=== PATIENT | male | born 1960 | race Caucasian/White ===

== ENCOUNTER 2023-03-11 07:08 | Outpatient (OUT) | payer BC, SELFPAY ==
[2023-03-11 07:31] LABS: Bilirubin Urine NEGATIVE (NEGATIVE); Blood Urine NEGATIVE (NEGATIVE); Clarity Urine CLEAR (CLEAR); Color Urine LT. YELLOW (YELLOW); Glucose Urine UA NEGATIVE (NEGATIVE); Ketones Urine NEGATIVE (NEGATIVE); Leukocyte Esterase Urine NEGATIVE (NEGATIVE); Nitrite Urine NEGATIVE (NEGATIVE); Protein Urine NEGATIVE (NEG/TRACE); Specific Gravity Urine 1.025 (1.005-1.025); Urobilinogen Urine 0.2 EU/dL (0.2-1.0); pH Urine 5.5 (5.0-9.0)
[2023-03-11 07:32] LABS: Basophils Absolute Auto 0.1 10^3/uL (0.0-0.1); Basophils Percent Auto 1.1 % (0.2-2.0); Eosinophils Absolute Auto 0.4 10^3/uL (0.0-0.7); Eosinophils Percent Auto 8.4 % (0.9-7.0); Hematocrit 44.3 % (42.0-54.0); Immature Granulocytes Abs Auto 0.01 10^3/uL (0.00-0.03); Immature Granulocytes Pct Auto 0.2 % (0.0-0.5); Lymphocytes Absolute Auto 1.1 10^3/uL (1.2-3.8); Lymphocytes Percent Auto 23.9 % (20.5-60.0); Mean Corpuscular HGB Conc 31.6 g/dL (29.9-35.2); Mean Corpuscular Hemoglobin 30.9 pg (25.9-34.0); Mean Corpuscular Volume 97.8 fL (80.0-94.0); Mean Platelet Volume 9.9 fL (9.5-13.5); Monocytes Absolute Auto 0.6 10^3/uL (0.3-0.8); Monocytes Percent Auto 12.2 % (1.7-12.0); Neutrophils Absolute Auto 2.5 10^3/uL (1.4-6.5); Neutrophils Percent Auto 54.2 % (43.0-75.0); Platelet Count 213 10^3/uL (150-450); Red Blood Count 4.53 10^6/uL (4.70-6.10); Red Cell Distribution Width 12.4 % (11.0-15.0); White Blood Count 4.5 10^3/uL (4.0-11.0)
[2023-03-11 07:37] LABS: Urine Microscopic Indicated YES
[2023-03-11 07:48] LABS: Bacteria Urine NONE SEEN #/HPF (NONE SEEN); Crystals Seen? None Seen #/HPF (None Seen); Mucus Urine NONE SEEN (NONE SEEN); RBC Urine NONE SEEN #/HPF (0-2); Squamous Epithelial Cell Urine NONE SEEN #/LPF (NONE/RARE); WBC Urine NONE SEEN #/HPF (NONE SEEN)
[2023-03-11 07:49] LABS: Cast Seen? NONE SEEN #/LPF (NONE SEEN); Urine Culture Indicated NO
[2023-03-11 08:26] LABS: Alanine Aminotransferase 16 U/L (16-63); Albumin Globulin Ratio 0.8; Albumin Level 3.2 g/dL (3.4-5.0); Alkaline Phosphatase 95 U/L (46-116); Anion Gap 11.8; Aspartate Amino Transferase 15 U/L (15-37); BUN Creatinine Ratio 15.4; Bilirubin Total 0.6 mg/dL (0.2-1.0); Calcium 8.4 mg/dL (8.5-10.1); Carbon Dioxide 24.7 mmol/L (21.0-32.0); Chloride 105 mmol/L (98-107); Chol HDL Ratio 2.5; Cholesterol 183 mg/dL (<=200); Estimated GFR (African America >60 (>=60); Estimated GFR (Non-African Ame >60 (>=60); Globulin 3.8 g/dL; Glucose 95 mg/dL (74-106); HDL Cholesterol 74 mg/dL (40-60); Potassium 4.5 mmol/L (3.5-5.1); Sodium 137 mmol/L (136-145); Triglycerides 51 mg/dL (<=150); VLDL CHOLESTEROL 10.2 mg/dL
== END 2023-03-11 07:09 | disposition home or self-care (01) ==
LOC: LAB 07:11
PROVIDERS: PCP Nurse Practitioner; Visit Provider Nurse Practitioner
DX: Z00.00 Encounter for general adult medical examination without abnormal findings (principal); Z78.9 Other specified health status
CPT/HCPCS: 36415; 80053; 80061; 81001; 85025

== ENCOUNTER 2023-07-24 07:11 | Outpatient (OUT) | payer OTHER, SELFPAY ==
--- OUTSIDE RECORDS SUMMARY | 2023-07-24 07:16 | XMS_ITS | CCD ---
Author Organization [facility] Care Team Providers Care Clinical Trial Specialist Name Role Phone Mariaelena Bailey Primary Care Provider [phone] MARIAELENA BAILEY Primary Care Physician AICHHOLZ, SENIOR SYSTEMS ANALYST MARIAELENA Admitting Unavailable AICHHOLZ, SENIOR SYSTEMS ANALYST MARIAELENA Primary Care Unavailable AICHHOLZ, SENIOR SYSTEMS ANALYST MARIAELENA Consulting Unavailable AICHHOLZ, SENIOR SYSTEMS ANALYST MARIAELENA Attending Unavailable AICHHOLZ, SENIOR SYSTEMS ANALYST MARIAELENA Admitting Unavailable AICHHOLZ, SENIOR SYSTEMS ANALYST MARIAELENA Primary Care Unavailable AICHHOLZ, SENIOR SYSTEMS ANALYST MARIAELENA Consulting Unavailable AICHHOLZ, SENIOR SYSTEMS ANALYST MARIAELENA Attending Unavailable AICHHOLZ, SENIOR SYSTEMS ANALYST MARIAELENA Admitting Unavailable AICHHOLZ, SENIOR SYSTEMS ANALYST MARIAELENA Primary Care Unavailable AICHHOLZ, SENIOR SYSTEMS ANALYST MARIAELENA Consulting Unavailable AICHHOLZ, SENIOR SYSTEMS ANALYST MARIAELENA Attending Unavailable AICHHOLZ, SENIOR SYSTEMS ANALYST MARIAELENA Primary Care Unavailable DR TJ REYES Admitting Unavailable ENGDR TJ DIMAS Consulting Unavailable DR TJ REYES Attending Unavailable Aichholz Mariaelena HERNANDEZ Primary Care Provider Willy REYES Referring Unavailable Willy REYES Attending Unavailable MARIAELNEA BAILEY Primary Care Unavailable AICVICENTA, MARIAELENA SALAZAR Primary Care Unavailable Willy REYES Referring Unavailable Willy REYES Attending Unavailable MARIAELENA BAILEY Primary Care Unavailable AICHHOLOlive, MARIAELENA MARIE Primary Care Unavailable Willy REYES Referring Unavailable Reynolds, Meg Unavailable Reynolds, Meg Attending Unavailable Reynolds, Meg Admitting Unavailable David CARNEY Attending Unavailable David CARNEY Attending Unavailable Medications Current Medications Medication Drug Class(es) Dates Sig (Normalized) Sig (Original) Diclofenac (1 source) Nonsteroidal Anti-inflammatory Drug Start: 04-22-2023 Voltaren 1 % apply to affected area Externally four times a day as needed for 7 days Apr, Active Fish Oils (2 sources) Start: 02-21-2021 take 1000 mg by mouth once daily Fish Oil 1,000 mg, Oral, Daily Start Date: 02/21/21 Status: Ordered lisinopril 10 mg oral tablet (4 sources) Angiotensin Converting Enzyme Inhibitor Start: 04-19-2020 take 1 tablet by mouth once daily lisinopril 10 mg Tab 10 mg = 1 tab(s), Oral, Daily Start Date: 05/04/20 Status: Ordered take 1 tablet by mouth once zahra y Lisinopril 20 MG TAKE 1 TABLET BY MOUTH EVERY DAY Oral for 90 Days Active Comment on above: Take 10 mg by mouth once daily. sildenafil 100 mg oral tablet (2 sources) Phosphodiesterase 5 Inhibitor Start: 07-31-2022 Viagra 100 mg Tab 100 mg = 1 tab(s), Oral, As Directed, 1 hour before sexual activity., # 30 tab(s), Refills(s) 5, Pharmacy: [id number], 188, cm, 11/21/21 8:42:00 EDT, Height/Length Dosing, 95.1, kg, 11/21/21 8:42:00 EDT, Weight Dosing Start Date: 07/31/22 Status: Ordered Start: 02-21-2021 Viagra 100 mg Tab 100 mg = 1 tab(s), Oral, As Directed, 1 hour before sexual activity., # 30 tab(s), Refills(s) 2, Pharmacy: [id number], 188, cm, 02/21/21 8:28:00 EDT, Height/Length Dosing, 95.1, kg, 02/21/21 8:28:00 EDT, Weight Dosing Start Date: 02/21/21 Status: Ordered tamsulosin hydrochloride 0.4 mg oral capsule (4 sources) alpha-Adrenergic Aden Start: 12-03-2022 End: 11-28-2023 take 1 capsule by mouth once daily tamsulosin 0.4 mg Cap 0.4 mg = 1 cap(s), Oral, Daily, X 90 day(s), # 90 cap(s), Refills(s) 3, [facility]: [id number], 188, cm, 12/03/22 11:35:00 EDT, Height/Length Dosing, 94, kg, 12/03/22 11:35:00 EDT, Weight Dosing Start Date: 12/03/22 Stop Date: 11/28/23 Status: Ordered Start: 01-17-2021 take 1 capsule by [facility] once daily tamsulosin 0.4 mg Cap 0.4 mg = 1 cap(s), Oral, Daily, # 30 cap(s), Refills(s) 11, Pharmacy: [id number], 188, cm, 02/21/21 8:28:00 EDT, Height/Length Dosing, 95.1, kg, 02/21/21 8:28:00 EDT, Weight Dosing Start Date: 08/30/21 Status: Ordered Comment on above: Take 1 capsule by [facility] once daily. Completed/Discontinued Medications Medication Drug Class(es) Dates Sig (Normalized) Sig (Original) docosahexaenoic acid/epa (FISH OIL ORAL) (1 source) docosahexaenoic acid/epa (FISH OIL ORAL) Take by mouth. 0 Active Comment on above: Take by mouth. Toradol 30 mg/ml (1 source) Start: 04-22-2023 Toradol 30 mg/ml Apr, 60 mg Problems Active Problems Problem Classification Problem Date Documented Date Episodic/Chronic Cancer of prostate (10 sources) Malignant neoplasm of prostate; Translations: [Malignant tumor of prostate] Onset: 07-17-2021 Chronic Essential hypertension (2 sources) Hypertensive disorder 2020 Chronic Genitourinary symptoms and ill-defined conditions (8 sources) Dysuria; Translations: [Loyd hematuria] 09-20-2020 Episodic Hyperplasia of prostate (6 sources) Benign prostatic hypertrophy with outflow obstruction; Translations: [Benign prostatic hyperplasia with lower urinary tract symptoms] Onset: 11-21-2021 Chronic Other diseases of kidney and ureters (1 source) Urinary tract obstruction; Translations: [Other obstructive and reflux uropathy] Onset: 11-21-2021 Episodic Other male genital disorders (2 sources) Erectile dysfunction following prostate brachytherapy 02-21-2021 Chronic Other male genital disorders (2 sources) Hemospermia 05-10-2020 Episodic Other non-traumatic joint disorders (1 source) Pain in left ankle and joints of left foot Episodic Other screening for suspected conditions (not mental disorders or infectious disease) (6 sources) Raised prostate specific antigen; Translations: [Other specified abnormal findings of blood chemistry] Onset: 08-17-2021 05-10-2020 Episodic Residual codes; unclassified (2 sources) Family history of prostate cancer 06-02-2020 Episodic Sprains and strains (1 source) Sprain of unspecified ligament of left ankle, initial encounter Episodic Unclassified (2 sources) Asymptomatic microscopic hematuria 02-21-2021 Unclassified (2 sources) Finding of sensation of bladder 02-21-2021 Unclassified (1 source) Pain in left ankle and joints of left foot; Translations: [Pain in left ankle and joints of left foot] Onset: 04-22-2023 Past or Other Problems Problem Classification Problem Date Documented Da te Episodic/Chronic Coagulation and hemorrhagic disorders (1 source) Spontaneous ecchymoses; Translations: [SPONTANEOUS ECCHYMOSES] Onset: 08-23-2021 Episodic Results Test Name Value Interpretation Reference Range Facility Reminderson 07-22-2023 Reminders - From: Gabriella Wilks To: [facility] - Recalls Rommel; Sent: 12/03/2022 16:46:30 EDT Show up: 05/05/2023 15:46:00 EST Subject: PSA Reminder Message Please Remember to:_have pt get PSA done in 6 months (by Dr. Reyes if pt keeps his appt in 07/2023) and in 1 year from today's appt on 12/03/22. From: Fide Kidd MA ([facility] - Recalls Rommel) To: [facility] - Recalls Carney; Sent: 06/07/2023 12:37:29 EST Show up: 07/08/2023 12:37:00 EST Subject: RE: PSA Due Date/Time: 07/12/2023 12:37:00 EST [facility] & requested Dr Reyes's last note. Spoke to pt. He is no longer following with Dr Reyes. He will get his PSA done @ [facility] sometime this week. Order has been faxed to [facility]. Sarwat Gilman [facility] XR ankle LT min 3V*on 2022 XR ankle LT min 3V* [facility] [employer] Other XR ankle LT min 3V* [facility] [employer] Other XR ankle LT min 3V* [address] [facility] [employer] Other XR ankle LT min 3V* SheylaLAUREN [address] [employer] Other XR ankle LT min 3V* XRay Report [employer] Other XR ankle LT min 3V* Signed [employer] Other XR ankle LT min 3V* Patient: Loyd Alford MR#: [id number] [place] [employer] Other XR ankle LT min 3V* : 1960 Acct:[id number] [employer] Other XR ankle LT min 3V* Age/Sex: 62 / M ADM Date: 04/22/23 [employer] Other XR ankle LT min 3V* Loc: XDUCLY Room: Type: [facility] [employer] Other XR ankle LT min 3V* Attending Dr: Meg Oakes [employer] Other XR ankle LT min 3V* Copies to: Meg Reynolds NP [employer] Other XR ankle LT min 3V* Ordering Provider: Meg Reynolds NP [employer] Other XR ankle LT min 3V* Date of Service: 04/22/23 [employer] Other XR ankle LT min 3V* XR/XR ankle LT min 3V*: M25.572 [employer] Other XR ankle LT min 3V* 3 views left ankle plain film [employer] Other XR ankle LT min 3V* COMPARISON: None [employer] Other XR ankle LT min 3V* HISTORY: Left ankle pain and swelling for 2 days. [employer] Other XR ankle LT min 3V* ACUTE FINDINGS: None [employer] Other XR ankle LT min 3V* DEGENERATIVE CHANGE: Minor marginal spurring. Tana deformity which may be incidental. Chronic [employer] Other XR ankle LT min 3V* bony densities of the superior portion of the talar head. Adjacent soft tissue prominence. [employer] Other XR ankle LT min 3V* SOFT TISSUE FINDINGS: Diffuse soft tissue prominence [employer] Other XR ankle LT min 3V* JOINT EFFUSION: None [employer] Other XR ankle LT min 3V* POSTOP CHANGES: None [employer] Other XR ankle LT min 3V* BONE MINERALIZATION: Adequate [employer] Other XR ankle LT min 3V* XR/XR ankle LT min 3V* [employer] Other XR ankle LT min 3V* IMPRESSION: Degenerative change. Soft tissue prominence [employer] Other XR ankle LT min 3V* Impression dictated by: Chao Wallace M.D.04/22/2023 9:57 AM [employer] Other XR ankle LT min 3V* Dictation Location: [place] [address] [employer] Other XR ankle LT min 3V* Transcribed By: [facility] 04/22/23 0957 [employer] Other XR ankle LT min 3V* Dictated By: Chao Wallace DO 04/22/23 0954 [employer] Other XR ankle LT min 3V* Signed By: [employer] Other XR ankle LT min 3V* 04/22/23956 [employer] Other XR ankle LT min 3V* [facility] [place] [address] [place] [address] XRay Report Signed Patient: Loyd Alford MR#: [id number] : 1960 Acct:[id number] Age/Sex: 62 / M ADM Date: 04/22/23 Loc: XDUC Room: Type: [facility] Attending Dr: Meg Reynolds [employer] Copies to: Meg Reynolds NP Ordering Provider: Mge Reynolds NP Date of Service: 04/22/23 XR/XR ankle LT min 3V*: M25.572 3 views left ankle plain film COMPARISON: None HISTORY: Left ankle pain and swelling for 2 days. ACUTE FINDINGS: None DEGENERATIVE CHANGE: Minor marginal spurring. Tana deformity which may be incidental. Chronic bony densities of the superior portion of the talar head. Adjacent soft tissue prominence. SOFT TISSUE FINDINGS: Diffuse soft tissue prominence JOINT EFFUSION: None POSTOP CHANGES: None BONE MINERALIZATION: Adequate XR/XR ankle LT min 3V* IMPRESSION: Degenerative change. Soft tissue prominence Impression dictated by: Chao Wallace M.D.04/22/2023 9:57 AM Dictation Location: [place] [address] Transcribed By: [facility] 04/22/23956 Dictated By: Chao Wallace DO 04/22/2354 Signed By: 04/22/2357 [facility] CNPAleksandra 01-10-2023 CNPN Telephone (RADTSA) LOYD ALFORD ([id number]) 1960 M Date Time Provider Department 01/10/23 Willy REYES During your visit today, we recorded the following information about you: Rajeev Zarate, ESPINOZA 01/10/2023 10:15 AM Signed Pt called in to let us know he did not realize he had a lab appt and follow up with Dr Reyes this month. When he was seen in July, he thought Dr Reyes said he could come yearly. Also, pt recently saw Dr Carney and Dr Carney gave him the impression that he did not need to see Dr Reyes anymore. Dr Carney has patient scheduled for a PSA and follow up in July. Dr Reyes- please advise. Are you ok with pt seeing Dr Carney only. ESPINOZA Billingsley Angela, RN 01/10/2023 12:54 PM Signed Call placed to notify pt. Tiff- please cancel follow up. ESPINOZA Billingsleykins Augustina Kerr 01/10/2023 12:56 PM Signed Cancelled appointments Allergies As of Date: 01/10/2023 (No Known Allergies) Date Reviewed: 07/17/2022 Reviewed by: Елена Reynolds LPN - Fully Assessed Reason for Visit: Future Appointment [256] Prescriptions as of 01/10/2023 - tamsulosin (FLOMAX) 0.4 mg Take 1 capsule by mouth once daily. - lisinopril (ZESTRIL, PRINIVIL) 10 mg tablet Take 10 mg by mouth once daily. - docosahexaenoic acid/epa (FISH OIL ORAL) Take by mouth. Problem List As Of Date 01/10/2023 Noted Resolved Prostate cancer (HCC) [C61] 07/18/2021 Encounter Status:Closed by RAJEEV ZARATE on 01/10/23 Normal [facility] Ambulatory Visit Summaryon 0 12-03-2022 Ambulatory Visit Summary LOYD ALFORD :1960 Visit Date:12/03/2022 Ambulatory Visit Instructions Your Diagnosis Prostate cancer BPH with urinary obstruction Tests Performed Urnls Dip Stick Auto w/o Microscopy POC [id number] Your Care Team Attending Physician - ROMMEL AVINA, David Rangel Primary Care Physician - MARIAELENA BAILEY CNP This Is Your Medications List tamsulosin (tamsulosin 0.4 mg Cap) Contact prescribing physician if questions or concerns lisinopril (lisinopril 10 mg Tab) omega-3 polyunsaturated fatty acids (Fish Oil) sildenafil (Viagra 100 mg Tab) Procedures Performed Brachytherapy implant (08/31/2020), Transrectal biopsy of prostate using ultrasound (US) guidance (05/19/2020), Basal cell carcinoma of neck, Colonoscopy. What to do next Scheduled Follow-Up Appointments Saturday 8:15 AM EDT With: David CARNEY MD Where: [facility] Patient Educationon 12-04-19 Patient Education Oncology Prostate Cancer The prostate is a small gland that produces fluid that makes up semen (seminal fluid). It is located below the bladder in men, in front of the rectum. Prostate cancer is the abnormal growth of cells in the prostate gland. What are the causes? The exact cause of this condition is not known. What increases the risk? You are more likely to develop this condition if: ? You are 65 years of age or older. ? You have a family history of prostate cancer. ? You have a family history of breast and ovarian cancer. ? You have genes that are passed from parent to child (inherited), such as BRCA1 and BRCA2. ? You have Estes syndrome. men and men of descent are diagnosed with prostate cancer at higher rates than other men. The reasons for this are not well understood and are likely due to a combination of genetic and environmental factors. What are the signs or symptoms? Symptoms of this condition include: ? Problems with urination. This may include: ? A weak or interrupted flow of urine. ? Trouble starting or stopping urination. ? Trouble emptying the bladder all the way. ? The need to urinate more often, especially at night. ? Blood in urine or semen. ? Persistent pain or discomfort in the lower back, lower abdomen, or hips. ? Trouble getting an erection. ? Weakness or numbness in the legs or feet. How is this diagnosed? This condition can be diagnosed with: ? A digital rectal exam. For this exam, a health care provider inserts a gloved finger into the rectum to feel the prostate gland. ? A blood test called a prostate-specific antigen (PSA) test. ? A procedure in which a sample of tissue is taken from the prostate and checked under a microscope (prostate biopsy). ? An imaging test called transrectal ultrasonography. Once the condition is diagnosed, tests will be done to determine how far the cancer has spread. This is called staging the cancer. Staging may involve imaging tests, such as a bone scan, CT scan, PET scan, or MRI. Stages of prostate cancer The stages of prostate cancer are as follows: ? Stage 1 (I). At this stage, the cancer is found in the prostate only. The cancer is not visible on imaging tests, and it is usually found by accident, such as during prostate surgery. ? Stage 2 (II). At this stage, the cancer is more advanced than it is in stage 1, but the cancer has not spread outside the prostate. ? Stage 3 (III). At this stage, the cancer has spread beyond the outer layer of the prostate to nearby tissues. The cancer may be found in the seminal vesicles, which are near the bladder and the prostate. ? Stage 4 (IV). At this stage, the cancer has spread to other parts of the body, such as the lymph nodes, bones, bladder, rectum, liver, or lungs. Prostate cancer grading Prostate cancer is also graded according to how the cancer cells look under a microscope. This is called the Rockwood score and the total score can range from 6?10, indicating how likely it is that the cancer will spread (metastasize) to other parts of the body. The higher the score, the greater the likelihood that the cancer will spread. ? Rockwood 6 or lower: This indicates that the cancer cells look similar to normal prostate cells (well differentiated). ? Rockwood 7: This indicates that the cancer cells look somewhat similar to normal prostate cells (moderately differentiated). ? Rockwood 8, 9, or 10: This indicates that the cancer cells look very different than normal prostate cells (poorly differentiated). How is this treated? Treatment for this condition depends on several factors, including the stage of the cancer, your age, personal preferences, and your overall health. Talk with your health care provider about treatment options that are recommended for you. Common treatments include: ? Observation for early stage prostate cancer (active surveillance). This involves having exams, blood tests, and in some cases, more biopsies. For some men, this is the only treatment needed. ? Surgery. Types of surgeries include: ? Open surgery (radical prostatectomy). In this surgery, a larger incision is made to remove the prostate. ? A laparoscopic radical prostatectomy. This is a surgery to remove the prostate and lymph nodes through several small incisions. It is often referred to as a minimally invasive surgery. ? A robotic radical prostatectomy. This is laparoscopic surgery to remove the prostate and lymph nodes with the help of robotic arms that are controlled by the surgeon. ? Cryoablation. This is surgery to freeze and destroy cancer cells. ? Radiation treatment. Types of radiation treatment include: ? External beam radiation. This type aims beams of radiation from outside the body at the prostate to destroy cancerous cells. ? Brachytherapy. This type uses radioactive needles, seeds, wires, or tubes that are implanted into the prostate gland. Like external be (more content not included)... Normal [facility] Urology Office/Clinic Noteon 12-03-2022 Urology Office/Clinic Note Chief Complaint 1yr HPI Staff Former DLS pt. Here today for 1yr follow up to Prostate Cancer & BPH S/P Brachytherapy 08/31/20 *Tamsulosin 0.4mg QD & Sildenafil 100mg therapy PSA 01/12/22- 1.69 PSA 07/12/22- 1.[address] Reyes 07/20/22. Occasional hesitancy & frequency when Tamsulosin dosage is missed. Sildenafil is working. Denies any concerns at this time. History of Present Illness Tests reviewed: reviewed UA I have reviewed the previous health record information and history for this patient from Dr. Soto. I have reviewed and verified the staff HPI to be accurate for this encounter. There have been no associated fever, chills, flank pain, or blood in the urine. Denies any urinary infections since last encounter. Review of Systems PHQ Score Initial Depression Screen Score: 0 ROS - Provider Constitutional: denies weight loss, denies hot flashes. Eyes: denies eye problems. Gastrointestinal: denies nausea, denies vomiting. Cardiovascular: denies chest pain or angina. Integumentary: no dryness Musculoskeletal: denies musculoskeletal symptoms. ENMT: denies otolaryngeal symptoms. Respiratory: no shortness of breath. Heme/Lymph: denies easy bleeding tendency, denies easy bruising tendency. Psychiatric: no confusion, no anxiety. Genitourinary: See HPI. Physical Exam Vitals & Measurements HR: 68(Peripheral) RR: 16 BP: 120/80 HT: 74 in HT: 188 cm WT: 94 kg WT: 206.8 lb BMI: 26.6 General Appearance: alert, no distress, well nourished, well developed male. Genitourinary: normal scrotum, normal testes, normal urethra, normal epididymis, normal vas deferens/spermatic cord. Flank Pain: none. Bladder: nonpalpable. Assessment/Plan Former Dr. Soto pt. 1. Prostate cancer (C61: Malignant neoplasm of prostate) S/p Brachytherapy 08/31/2020 [1] Path report 05/19/20 showed Pawel 6 (3+3) with 4 HGPINs. Pt has his next siva with Dr. Reyes in 07/2023. PSA 07/17/21 - 1.75 01/12/22 - 1.69 07/12/22 - 1.34 Follow up in 1 year with PSA. Pt to get PSA 6 months from now as well. 2. BPH with urinary obstruction (N40.1: Benign prostatic hyperplasia with lower urinary tract symptoms) Pt is currently taking Flomax 0.4mg QD therapy. [2] Reports he has nocturia 3x/night which is unchanged since brachytherapy. Discussed pt to take Flomax at night time. Pt states he is content with his current medication and dosage. All questions/concerns were discussed. Pt to call the office if he encounters any issues prior. Pt acknowledges understanding. Follow-up With When Contact Information ROMMEL AVINA, David Rangel, URL [facility] [address], [place] [address] [phone] Additional Instructions: 1 yr w/ PSA Patient Education Prostate Cancer IGabriella, personally scribed for Dr. Carney on 12/03/2022 12:31:49. . Documentation recorded by the nikiibGabriella garzon, accurately reflects the services(s) I performed and decisions made by me. Authenticated by Dr. Carney on 12/03/2022 12:36:10. Problem List/Past Medical History Ongoing Asymptomatic microscopic hematuria Blood in semen BPH with urinary obstruction BPH without urinary obstruction Dysuria Elevated PSA Erectile dysfunction following interstitial seed therapy Family history of prostate cancer Feeling of incomplete bladder emptying Frequency of urination Gross hematuria Hypertension Nocturia Prostate cancer Historical No qualifying data Procedure/Surgical History Brachytherapy implant (08/31/2020), Transrectal biopsy of prostate using ultrasound (US) guidance (05/19/2020), Basal cell carcinoma of neck, Colonoscopy. Medications Fish Oil, 1000 mg, Oral, Daily lisinopril 10 mg Tab, 10 mg= 1 tab(s), Oral, Daily tamsulosin 0.4 mg Cap, 0.4 mg= 1 cap(s), Oral, Daily, 3 refills Viagra 100 mg Tab, 100 mg= 1 tab(s), Oral, As Directed, 5 refills Allergies No Known Allergies Social History Alcohol - Low Risk, 05/10/2020 Substance Abuse - No Risk, 02/21/2021 Tobacco - No Risk, 02/21/2021 Never (less than 100 in lifetime) Tobacco Use:. Never Smokeless Tobacco Use:. Household tobacco concerns: No., 12/03/2022 Family History Cancer: Mother. Hypertension: Father and Brother.Negative: Sister. Primary malignant neoplasm of lung: Father. Primary malignant neoplasm of prostate: Brother. Immunizations Vaccine Date Status Comments zoster vaccine, inactivated 05/15/2021 Recorded influenza virus vaccine, inactivated 05/15/2021 Recorded SARS-CoV-2 (COVID-19) mRNA BNT-162b2 vax 03/16/2021 Recorded SARS-CoV-2 (COVID-19) mRNA BNT-162b2 vax 08/13/2020 Recorded SARS-CoV-2 (COVID-19) mRNA BNT-162b2 vax 07/22/2020 Recorded influenza virus vaccine, inactivated - Not Given Postpone due to refusal influenza virus vaccine, inactivated 02/28/2018 Recorded diphtheria/pertussis, acel/tetanus adult 07/25/2015 Recorded influenza virus vaccine, inactivate (more content not included)... Normal [facility] Comment on above: Result Comment: Electronically Signed By : David CARNEY MDbr\Date and Time Signed: 12/03/22 12:36 EDT\.br\Electronically Co-Signed By: Gabriella Wilks\Date and Time Co-Signed: 12/03/22 12:32 EDT CNOVon 07-17-2022 CNOV Office Visit (RADTSA ) LOYD ALFORD ([id number]) 1960 M Date Time Provider Department 07/17/22 3:00 PM Willy REYES During your visit today, we recorded the following information about you: Temperature Pulse Respiration Blood pressure 97.6 degrees 64/minute 16/minute 135/90 Weight 96.2 kg Елена Reynolds LPN 07/20/2022 9:46 AM Signed AUA= 12 G Griffin Reyes MD 07/20/2022 9:46 AM Signed Radiation Oncology - Follow Up Note PATIENT NAME: Loyd Alford PATIENT DIAGNOSIS: Prostate adenocarcinoma, initial PSA 5.5, biopsy Pawel score 3 + 3 = 6 (grade group 1), clinical stage T1c, N0, M0, stage I [cT1a-c/T2a, N0, M0, PSA <10, GG 1] (AJCC 8th ed.), s/p TRUS Random biopsy. Prostate cancer (C61), 2019 NCCN Risk Group: Low Risk Group RADIATION SUMMARY: 08/31/20 I-125 prostate transperineal brachytherapy implant, 145 Gy, 67 sources, 26.33 mCi. INTERVAL HISTORY: Doing well denies new problems or concerns. PSA HISTORY: PSA (ng/mL) Date Value 07/12/2022 1.34 01/12/2022 1.69 PSA. (no units) Date Value 07/17/2021 1.75 07/17/2021 1.75 01/13/2021 4.54 10/10/2020 10.95 ALLERGIES No Known Allergies tamsulosin (FLOMAX) 0.4 mg Take 1 capsule by mouth once daily. lisinopril (ZESTRIL, PRINIVIL) 10 mg tablet Take 10 mg by mouth once daily. docosahexaenoic acid/epa (FISH OIL ORAL) Take by mouth. REVIEW OF SYSTEMS: D/N = 4-6/1-2 Hematuria: none Dysuria: no Incontinence: none, occasional postvoid dribbling no pad Urgency: Mild Catheter use: No Medications to aid urination: flomax - Total AUA Score: 12 Bowel movement frequency: 1/day Bowel movement quality: normal Blood per rectum: none PHYSICAL EXAM: BP 135/90 Pulse 64 Temp 36.4 ?C (97.6 ?F) Resp 16 Wt 96.2 kg (212 lb) SpO2 97% BMI 26.92 kg/m? KPS: 100 General appearance: Alert and oriented. No acute distress. Abdomen: Normal abdominal exam, Abdomen soft, non-tender. No masses, organomegaly. Rectal exam def Extremities: No deformities, edema, skin discoloration, clubbing or cyanosis. Lymph Nodes: No cervical lymphadenopathy, No supraclavicular lymphadenopathy, No axillary lymphadenopathy. Skin: Skin color, texture, turgor normal, no suspicious rashes or lesions. ASSESSMENT/PLAN:Prostate adenocarcinoma, initial PSA 5.5, biopsy Pawel score 3 + 3 = 6 (grade group 1), clinical stage T1c, N0, M0, stage I [cT1a-c/T2a, N0, M0, PSA <10, GG 1] status post prostate brachytherapy PSA continues to show response. No other new problems related to prior brachytherapy. Plan for follow-up in 6 months with repeat PSA. Signed by: Willy Reyes MD cc: Mariaelena Bailey, SENIOR SYSTEMS ANALYST (DrC) [id number] Soto Portions of the above note extracted and edited from previous visit as well as active information included in the EMR. Referring Provider: Willy REYES [[id number]] Allergies As of Date: 07/17/2022 (No Known Allergies) Date Reviewed: 07/17/2022 Reviewed by: Елена Reynolds LPN - Fully Assessed Reason for Visit: Prostate Cancer [590] Primary Visit Diagnosis:Malignant neoplasm of prostate (HCC) [C61] Order(s):PSA/PROSTSPECAG DIAG [SQPSA] Order #: [id number] FUTURE Prescriptions as of 07/20/2022 - tamsulosin (FLOMAX) 0.4 mg Take 1 capsule by mouth once daily. - lisinopril (ZESTRIL, PRINIVIL) 10 mg tablet Take 10 mg by mouth once daily. - docosahexaenoic acid/epa (FISH OIL ORAL) Take by mouth. Problem List As Of Date 07/17/2022 Noted Resolved Prostate cancer (HCC) [C61] 07/18/2021 Visit Notes: >> SHANE Barrientos Jul 17, 2022 2:49 PM Status: Signed AUA= 12 Disposition: Return in about 6 months (around 01/17/2023). Follow-up and Disposition History for Encounter Date Provider Department Center 07/17/2022 [id number] REYESJENNYChelsie THOMPSON SHEYLA Encounter Status:Closed by Willy REYES on 07/20/22 Normal [facility] PSA SerPl-ncon 07-12-2022 Prostate specific Ag [Mass/Vol] 1.34 ng/mL Normal <2.60 [facility] Comment on above: Order Comment: Specimen Type: BLOOD SPEC IMEN Ordering Facility: [facility] Address: [address] [place] [address] Result Comment: Tota l PSA test methodology used is the Electrochemiluminescence Immunoassay by [employer]. Total PSA values by differing methodologies cannot be interchanged. Performed By: #### 2 857-1 #### [facility] CLIA [id number] [address] [place] [address] [place] CBC AUTO DIFFon 02-27-2022 BASO # 0.0 103/ul Normal 0.0-0.1 [facility] Comment on above: Performed By: #### CBC #### [facility] [address] [place] [address] Dr. Chapo Brewer Basophils/100 WBC (Bld) 0.6 % Normal 0.2-2.0 [facility] Comment on above: Performed By: #### CBC #### [facility] [address] [address] [address] Chapo Brewer EO # 0.3 103/ul Normal 0.0-0.7 [facility] Comment on above: Performed By: #### CBC #### [facility] [address] [place] [address] Dr. Chapo Brewer Eosinophils/100 WBC (Bld) 5.6 % Normal 0.9-7.0 [facility] Comment on above: Performed By: #### CBC #### [facility] [address] [place] [address] Dr. Chapo Brewer Erythrocyte distribution width (RBC) [Ratio] 12.8 % Normal 11.0-15.0 [facility] Comment on above: Performed By: #### CBC #### [facility] [address] [place] [address] Dr. Chapo Brewer Hematocrit (Bld) [Volume fraction] 45.5 % Normal 42.0-54.0 [facility] Comment on above: Performed By: #### CBC #### [facility] [address] [place] [address] Dr. Chapo Brewer Hemoglobin (Bld) [Mass/Vol] 14.6 g/dL Normal 14.0-18.0 [facility] Comment on above: Performed By: #### CBC #### [facility] [address] [place] [address] Dr. Chapo Brewer IG # 0.01 10e3/ul Normal 0.00-0.03 [facility] Comment on above: Performed By: #### CBC #### [facility] [address] [place] [address] Dr. Chapo Brewer IG % 0.2 % Normal 0.0-0.5 [facility] Comment on above: Performed By: #### CBC #### [facility] [address] [place] [address] Dr. Chapo Brewer LYMPH # 1.2 103/ul Normal 1.2-3.8 [facility] Comment on above: Performed By: #### CBC #### [facility] [address] [place] [address] Dr. Chapo Brewer Lymphocytes/100 WBC (Bld) 23.1 % Normal 20.5-60.0 [facility] Comment on above: Performed By: #### CBC #### [facility] [address] [place] [address] Dr. Chapo Brewer MANUAL DIFF REQ NO Normal [facility] Comment on above: Performed By: #### CBC #### [facility] [address] [place] [address] Dr. Chapo Brewer MCH (RBC) [Entitic mass] 30.5 pg Normal 25.9-34.0 [facility] Comment on above: Performed By: #### CBC #### [facility] [address] [place] [address] Dr. Chapo Brewer MCHC (RBC) [Mass/Vol] 32.1 g/dL Normal 29.9-35.2 [facility] Comment on above: Performed By: #### CBC #### [facility] [address] [place] [address] Dr. Chapo Brewer MCV (RBC) [Entitic vol] 95.0 fL Critically high 80.0-94.0 [facility] Comment on above: Performed By: #### CBC #### [facility] [address] [place] [address] Dr. Chapo Brewer MONO # 0.6 103/ul Normal 0.3-0.8 [facility] Comment on above: Performed By: #### CBC #### [facility] [address] [place] [address] Dr. Chapo Brewer Monocytes/100 WBC (Bld) 11.3 % Normal 1.7-12.0 [facility] Comment on above: Performed By: #### CBC #### [facility] [address] [place] [address] Dr. Chapo Brewer NEUT # 2.9 103/ul Normal 1.4-6.5 [facility] Comment on above: Performed By: #### CBC #### [facility] [address] [place] [address] Dr. Chapo Brewer Neutrophils/100 WBC (Bld) 59.2 % Normal 43.0-75.0 [facility] Comment on above: Performed By: #### CBC #### [facility] [address] [address] [address] Chapo Brewer Platelet mean volume (Bld) [Entitic vol] 9.4 fL Critically low 9.5-13.5 [facility] Comment on above: Performed By: #### CBC #### [facility] [address] [address] [address] Chapo Brewer PLT 217 103/ul Normal 150-450 [facility] Comment on above: Performed By: #### CBC #### [facility] [address] [address] [address] Chapo Brewer RBC 4.79 106/ul Normal 4.70-6.10 [facility] Comment on above: Performed By: #### CBC #### [facility] [address] [place] [address] Dr. Chapo Brewer WBC 5.0 103/ul Normal 4.0-11.0 [facility] Comment on above: Performed By: #### CBC #### [facility] [address] [address] [address] Chapo Brewer LIPID PROFILEon 02-27-2022 CHOL-HDL RATIO NORM SEE BELOW Normal [facility] Comment on above: Result Comment: 3.3 - 4.4 LOW RISK 4.4 - 7.1 AVERAGE RISK 7.1 - 11.0 MODERATE RISK >11.0 HIGH RISK Performed By: #### C MP, LIPID #### [facility] [address] [place] [address] Dr. Chapo Brewer Cholesterol [Mass/Vol] 195 mg/dL Normal <=200 [facility] Comment on above: Performed By: #### CMP, LIPID #### [facility] [address] [place] [address] Dr. Chapo Brewer Cholesterol in HDL [Mass/Vol] 75 mg/dL Critically high 40-60 [facility] Comment on above: Performed By: #### CMP, LIPID #### [facility] [address] [place] [address] Dr. Chapo Brewer Cholesterol in LDL [Mass/Vol] 102.6 mg/dL Normal [facility] Comment on above: Performed By: #### CMP, LIPID #### [facility] [address] [address] [address] Chapo Brewer Cholesterol.tot al/Cholesterol in HDL [Mass ratio] 2.6 {ratio} Normal [facility] Comment on above: Performed By: #### CMP, LIPID #### [facility] [address] [address] [address] Chapo Brewer HDL NORMAL > or = 60 mg/dl - LO W CARDIOVASCULAR RISK <40 mg/dl - HIGH CARDIOVASCULAR RISK Normal [facility] Comment on above: Performed By: #### CMP, LIPID #### [facility] [address] [address] [address] Chapo Brewer LDL CALC NORMAL SEE BELOW Normal [facility] Comment on above: Result Comment: <100 mg/dl OPTIMAL 100 - 129 mg/dl NEAR OR ABOVE OPTIMAL 130 - 159 mg/dl BORDERLINE HIGH 160 - 189 mg/dl HIGH >190 mg/dl VERY HIGH Performed By: #### C MP, LIPID #### [facility] [address] [address] [address] Chapo Brewer Triglyceride [Mass/Vol] 87 mg/dL Normal <=150 [facility] Comment on above: Performed By: #### CMP, LIPID #### [facility] [address] [place] [address] Dr. Chapo Brewer VLDL CALC 17.4 mg/dL Normal [facility] Comment on above: Performed By: #### CMP, LIPID #### [facility] [address] [address] [address] Chapo Brewer PROF 14(COMP METB)on 022 Albumin [Mass/Vol] 3.5 g/dL Normal 3.4-5.0 [facility] Comment on above: Performed By: #### CMP, LIPID #### [facility] [address] [place] [address] Dr. Chapo Brewer Albumin/Globuli n [Mass ratio] 0.9 {ratio} Normal [facility] Comment on above: Performed By: #### CMP, LIPID #### [facility] [address] [place] [address] Dr. Chapo Brewer ALP [Catalytic activity/Vol] 88 U/L Normal 46-116 [facility] Comment on above: Performed By: #### CMP, LIPID #### [facility] [address] [address] [address] Chapo Brewer ALT [Catalytic activity/Vol] 20 U/L Normal 16-63 [facility] Comment on above: Performed By: #### CMP, LIPID #### [facility] [address] [address] [address] Chapo Brewer Anion gap [Moles/Vol] 11.6 mmol/L Normal [facility] Comment on above: Performed By: #### CMP, LIPID #### [facility] [address] [address] [address] Chapo Brewer AST [Catalytic activity/Vol] 17 U/L Normal 15-37 [facility] Comment on above: Performed By: #### CMP, LIPID #### [facility] [address] [address] [address] Chapo Brewer Bilirubin [Mass/Vol] 0.7 mg/dL Normal 0.2-1.0 [facility] Comment on above: Performed By: #### CMP, LIPID #### [facility] [address] [address] [address] Chapo Brewer Calcium [Mass/Vol] 8.7 mg/dL Normal 8.5-10.1 [facility] Comment on above: Performed By: #### CMP, LIPID #### [facility] [address] [address] [address] Chapo Brewer Chloride [Moles/Vol] 104 mmol/L Normal 98-107 [facility] Comment on above: Performed By: #### CMP, LIPID #### [facility] [address] [address] [address] Chapo Brewer CO2 [Moles/Vol] 29.2 mmol/L Normal 21.0-32.0 [facility] Comment on above: Performed By: #### CMP, LIPID #### [facility] [address] [address] [address] Chapo Brewer Creatinine [Mass/Vol] 1.12 mg/dL Normal 0.70-1.30 [facility] Comment on above: Performed By: #### CMP, LIPID #### [facility] [address] [address] [address] Chapo Brewer EGFR-AF IRANIAN >60 Normal >=60 [facility] Comment on above: Performed By: #### CMP, LIPID #### [facility] [address] [address] [address] Chapo Brewer EGFR-NON AF IRANIAN >60 Normal >=60 [facility] Comment on above: Performed By: #### CMP, LIPID #### [facility] [address] [address] [address] Chapo Brewer Globulin (S) [Mass/Vol] 3.8 g/dL Normal [facility] Comment on above: Performed By: #### CMP, LIPID #### [facility] [address] [place] [address] Dr. Chapo Brewer Glucose [Mass/Vol] 92 mg/dL Normal 74-106 [facility] Comment on above: Performed By: #### CMP, LIPID #### [facility] [address] [place] [address] Dr. Chapo Brewer Potassium [Moles/Vol] 4.8 mmol/L Normal 3.5-5.1 [facility] Comment on above: Performed By: #### CMP, LIPID #### [facility] [address] [place] [address] Dr. Chapo Brewer Protein [Mass/Vol] 7.3 g/dL Normal 6.4-8.2 [facility] Comment on above: Performed By: #### CMP, LIPID #### [facility] [address] [place] [address] Dr. Chapo Brewer Sodium [Moles/Vol] 140 mmol/L Normal 136-145 [facility] Comment on above: Performed By: #### CMP, LIPID #### [facility] [address] [place] [address] Dr. Chapo Brewer Urea nitrogen [Mass/Vol] 18.0 mg/dL Normal 7.0-18.0 [facility] Comment on above: Performed By: #### CMP, LIPID #### [facility] [address] [place], [place] [address] Dr. Chapo Brewer Urea nitrogen/Creati nine [Mass ratio] 16.1 mg/mg Normal [facility] Comment on above: Performed By: #### CMP, LIPID #### [facility] [address] [place], [place] [address] Dr. Chapo Brewer CNOVon 01-16-2022 CNOV Office Visit (RADTSA ) LISAFRANCISCOLOYD Garzon ([id number]) 1960 M Date Time Provider Department 01/16/22 3:00 PM Willy REYES During your visit today, we recorded the following information about you: Temperature Pulse Respiration Weight 97.3 degrees 63/minute 16/minute 93.4 kg Willy Reyes MD 01/16/2022 3:08 PM Signed Radiation Oncology - Follow Up Note PATIENT NAME: Loyd Alford PATIENT DIAGNOSIS: Prostate adenocarcinoma, initial PSA 5.5, biopsy Pawel score 3 + 3 = 6 (grade group 1), clinical stage T1c, N0, M0, stage I [cT1a-c/T2a, N0, M0, PSA <10, GG 1] (AJCC 8th ed.), s/p TRUS Random biopsy. Prostate cancer (C61), 2019 NCCN Risk Group: Low Risk Group RADIATION SUMMARY: 08/31/20 I-125 prostate transperineal brachytherapy implant, 145 Gy, 67 sources, 26.33 mCi. INTERVAL HISTORY: Doing well denies new problems or concerns. PSA HISTORY: PSA (ng/mL) Date Value 01/12/2022 1.69 PSA. (no units) Date Value 07/17/2021 1.75 07/17/2021 1.75 01/13/2021 4.54 10/10/2020 10.95 ALLERGIES No Known Allergies tamsulosin (FLOMAX) 0.4 mg Take 1 capsule by mouth once daily. lisinopril (ZESTRIL, PRINIVIL) 10 mg tablet Take 10 mg by mouth once daily. docosahexaenoic acid/epa (FISH OIL ORAL) Take by mouth. REVIEW OF SYSTEMS: D/N = 4-6/1-2 Hematuria: none Dysuria: y Incontinence: none, occasional postvoid dribbling no pad Urgency: Mild Catheter use: No Medications to aid urination: flomax - Total AUA Score: 12 Bowel movement frequency: 1/day Bowel movement quality: normal Blood per rectum: none PHYSICAL EXAM: Pulse 63 Temp 36.3 ?C (97.3 ?F) Resp 16 Wt 93.4 kg (206 lb) SpO2 99% BMI 26.16 kg/m? KPS: 100 General appearance: Alert and oriented. No acute distress. Abdomen: Normal abdominal exam, Abdomen soft, non-tender. No masses, organomegaly. Rectal exam def Extremities: No deformities, edema, skin discoloration, clubbing or cyanosis. Lymph Nodes: No cervical lymphadenopathy, No supraclavicular lymphadenopathy, No axillary lymphadenopathy. Skin: Skin color, texture, turgor normal, no suspicious rashes or lesions. ASSESSMENT/PLAN:Prostate adenocarcinoma, initial PSA 5.5, biopsy Pawel score 3 + 3 = 6 (grade group 1), clinical stage T1c, N0, M0, stage I [cT1a-c/T2a, N0, M0, PSA <10, GG 1] status post prostate brachytherapy Doing well with stable and decreasing PSA. No significant problems related to prior treatment. Recommend continued follow-up with PSA in 6 months. Signed by: Willy Reyes MD cc: Mariaelena Bailey, SENIOR SYSTEMS ANALYST (DrC) [address] [place] [address] Dr. Soto Portions of the above note extracted and edited from previous visit as well as active information included in the EMR. Елена Reynolds LPN 01/16/2022 3:08 PM Signed AUA=12 Referring Provider: Willy REYES [[id number]] Allergies As of Date: 01/16/2022 (No Known Allergies) Date Reviewed: 01/16/2022 Reviewed by: Willy Reyes MD - Fully Assessed Reason for Visit: Prostate Cancer [590] Primary Visit Diagnosis:Malignant neoplasm of prostate (HCC) [C61] Order(s):PSA/PROSTSPECAG DIAG [SQPSA] Order #: [id number] FUTURE Prescriptions as of 01/16/2022 - tamsulosin (FLOMAX) 0.4 mg Take 1 capsule by mouth once daily. - lisinopril (ZESTRIL, PRINIVIL) 10 mg tablet Take 10 mg by mouth once daily. - docosahexaenoic acid/epa (FISH OIL ORAL) Take by mouth. Problem List As Of Date 01/16/2022 Noted Resolved Prostate cancer (HCC) [C61] 07/18/2021 Visit Notes: >> SHANE Barrientos Jan 16, 2022 2:50 PM Status: Signed AUA=12 Disposition: Return in about 6 months (around 07/16/2022). Follow-up and Disposition History for Encounter Date Provider Department Center 01/16/2022 [id number] REYESY Encounter Status:Closed by Willy REYES on 01/16/22 Normal [facility] PSA SerPl-mCncon 01-12-2022 Prostate specific Ag [Mass/Vol] 1.69 ng/mL Normal <2.60 [facility] Comment on above: Order Comment: Specimen Type: BLOOD SPEC IMEN Ordering Facility: [facility] Address: [address] [place] [address] Result Comment: Tota l PSA test methodology used is the Electrochemiluminescence Immunoassay by [employer]. Total PSA values by differing methodologies cannot be interchanged. Performed By: #### 2 857-1 #### [facility] CLIA [id number] [address] [place] [address] [place] CBC AUTO DIFFon 08-17-2021 BASO # 0.0 103/ul Normal 0.0-0.1 [facility] Comment on above: Performed By: #### CBC #### [facility] [address] [place] [address] Dr. Chapo Brewer Basophils/100 WBC (Bld) 0.5 % Normal 0.2-2.0 [facility] Comment on above: Performed By: #### CBC #### [facility] [address] [place] [address] Dr. Chpao Brewer EO # 0.3 103/ul Normal 0.0-0.7 [facility] Comment on above: Performed By: #### CBC #### [facility] [address] [place] [address] Dr. Chapo Brewer Eosinophils/100 WBC (Bld) 4.5 % Normal 0.9-7.0 [facility] Comment on above: Performed By: #### CBC #### [facility] [address] [place] [address] Dr. Chapo Brewer Erythrocyte distribution width (RBC) [Ratio] 12.4 % Normal 11.0-15.0 [facility] Comment on above: Performed By: #### CBC #### [facility] [address] [place] [address] Dr. Chapo Brewer Hematocrit (Bld) [Volume fraction] 44.7 % Normal 42.0-54.0 [facility] Comment on above: Performed By: #### CBC #### [facility] [address] [place] [address] Dr. Chapo Brewer Hemoglobin (Bld) [Mass/Vol] 14.6 g/dL Normal 14.0-18.0 [facility] Comment on above: Performed By: #### CBC #### [facility] [address] [place] [address] Dr. Chapo Brewer IG # 0.02 10e3/ul Normal 0.00-0.03 [facility] Comment on above: Performed By: #### CBC #### [facility] [address] [place] [address] Dr. Chapo Brewer IG % 0.3 % Normal 0.0-0.5 [facility] Comment on above: Performed By: #### CBC #### [facility] [address] [place] [address] Dr. Chapo Brewer LYMPH # 1.0 103/ul Critically low 1.2-3.8 [facility] Comment on above: Performed By: #### CBC #### [facility] [address] [place] [address] Dr. Chapo Brewer Lymphocytes/100 WBC (Bld) 17.2 % Critically low 20.5-60.0 [facility] Comment on above: Performed By: #### CBC #### [facility] [address] [place] [address] Dr. Chapo Brewer MANUAL DIFF REQ NO Normal [facility] Comment on above: Performed By: #### CBC #### [facility] [address] [place] [address] Dr. Chapo Brewer MCH (RBC) [Entitic mass] 31.3 pg Normal 25.9-34.0 [facility] Comment on above: Performed By: #### CBC #### [facility] [address] [place] [address] Dr. Chapo Brewer MCHC (RBC) [Mass/Vol] 32.7 g/dL Normal 29.9-35.2 [facility] Comment on above: Performed By: #### CBC #### [facility] [address] [place] [address] Dr. Chapo Brewer MCV (RBC) [Entitic vol] 95.7 fL Critically high 80.0-94.0 [facility] Comment on above: Performed By: #### CBC #### [facility] [address] [place] [address] Dr. Chapo Brewer MONO # 0.6 103/ul Normal 0.3-0.8 [facility] Comment on above: Performed By: #### CBC #### [facility] [address] [place] [address] Dr. Chapo Brewer Monocytes/100 WBC (Bld) 10.9 % Normal 1.7-12.0 [facility] Comment on above: Performed By: #### CBC #### [facility] [address] [place] [address] Dr. Chapo Brewer NEUT # 3.8 103/ul Normal 1.4-6.5 [facility] Comment on above: Performed By: #### CBC #### [facility] [address] [address] [address] Chapo Brewer Neutrophils/100 WBC (Bld) 66.6 % Normal 43.0-75.0 [facility] Comment on above: Performed By: #### CBC #### [facility] [address] [place] [address] Dr. Chapo Brewer Platelet mean volume (Bld) [Entitic vol] 9.2 fL Critically low 9.5-13.5 [facility] Comment on above: Performed By: #### CBC #### [facility] [address] [place] [address] Dr. Chapo Brewer PLT 227 103/ul Normal 150-450 [facility] Comment on above: Performed By: #### CBC #### [facility] [address] [place] [address] Dr. Chapo Brewer RBC 4.67 106/ul Critically low 4.70-6.10 [facility] Comment on above: Performed By: #### CBC #### [facility] [address] [place] [address] Dr. Chapo Brewer WBC 5.8 103/ul Normal 4.0-11.0 [facility] Comment on above: Performed By: #### CBC #### [facility] [address] [place] [address] Dr. Chapo Brewer PROTIMEon 08-17-2021 INR Coag (PPP) [Relative time] 0.97 {INR} Normal [facility] [facility] Comment on above: Performed By: #### PTT, PT #### [facility] [address] [place] [address] Dr. Chapo Brewer INR GUIDELINES SEE BELOW Normal [facility] Comment on above: Result Comment: DESIRED INR: 2.0 - 3.0 C ONDITIONS NOT LISTED BELOW 2.5 - 3.5 FOR PROSTHETIC HEART VALVE REPLACEMENT 2.5 - 3.5 RECURRENT THROMBOSIS Performed By: #### P TT, PT #### [facility] [address] [place] [address] Dr. Chapo Brewer PT Coag (PPP) [Time] 10.5 s Normal 9.0-11.6 [facility] Comment on above: Performed By: #### PTT, PT #### [facility] [address] [place] [address] Dr. Chapo Brewer PTTon 08-17-2021 aPTT Coag (Bld) [Time] 27.6 s Normal 22.3-36.2 [facility] Comment on above: Performed By: #### PTT, PT #### [facility] [address] [place] [address] Dr. Chapo Brewer CBC AUTO DIFFon 05-18-2021 BASO # 0.0 103/ul Normal 0.0-0.1 [facility] Comment on above: Performed By: #### CBC #### [facility] [address] [place] [address] Dr. Chapo Brewer Basophils/100 WBC (Bld) 0.6 % Normal 0.2-2.0 [facility] Comment on above: Performed By: #### CBC #### [facility] [address] [place] [address] Dr. Chapo Brewer EO # 0.4 103/ul Normal 0.0-0.7 [facility] Comment on above: Performed By: #### CBC #### [facility] [address] [place] [address] Dr. Chapo Brewer Eosinophils/100 WBC (Bld) 7.0 % Normal 0.9-7.0 [facility] Comment on above: Performed By: #### CBC #### [facility] [address] [place] [address] Dr. Chapo Brewer Erythrocyte distribution width (RBC) [Ratio] 12.4 % Normal 11.0-15.0 [facility] Comment on above: Performed By: #### CBC #### [facility] [address] [place] [address] Dr. Chapo Brewer Hematocrit (Bld) [Volume fraction] 47.4 % Normal 42.0-54.0 [facility] Comment on above: Performed By: #### CBC #### [facility] [address] [place] [address] Dr. Chapo Brewer Hemoglobin (Bld) [Mass/Vol] 15.4 g/dL Normal 14.0-18.0 [facility] Comment on above: Performed By: #### CBC #### [facility] [address] [place] [address] Dr. Chapo Brewer IG # 0.02 10e3/ul Normal 0.00-0.03 [facility] Comment on above: Performed By: #### CBC #### [facility] [address] [place] [address] Dr. Chapo Brewer IG % 0.4 % Normal 0.0-0.5 [facility] Comment on above: Performed By: #### CBC #### [facility] [address] [place] [address] Dr. Chapo Brewer LYMPH # 1.1 103/ul Critically low 1.2-3.8 [facility] Comment on above: Performed By: #### CBC #### [facility] [address] [place] [address] Dr. Chapo Brewer Lymphocytes/100 WBC (Bld) 21.5 % Normal 20.5-60.0 [facility] Comment on above: Performed By: #### CBC #### [facility] [address] [place] [address] Dr. Chapo Brewer MANUAL DIFF REQ NO Normal [facility] Comment on above: Performed By: #### CBC #### [facility] [address] [place] [address] Dr. Chapo Brewer MCH (RBC) [Entitic mass] 30.9 pg Normal 25.9-34.0 [facility] Comment on above: Performed By: #### CBC #### [facility] [address] [place] [address] Dr. Chapo Brewer MCHC (RBC) [Mass/Vol] 32.5 g/dL Normal 29.9-35.2 [facility] Comment on above: Performed By: #### CBC #### [facility] [address] [place] [address] Dr. Chapo Brewer MCV (RBC) [Entitic vol] 95.2 fL Critically high 80.0-94.0 [facility] Comment on above: Performed By: #### CBC #### [facility] [address] [place] [address] Dr. Chapo Brewer MONO # 0.7 103/ul Normal 0.3-0.8 [facility] Comment on above: Performed By: #### CBC #### [facility] [address] [place] [address] Dr. Chapo Brewer Monocytes/100 WBC (Bld) 13.7 % Critically high 1.7-12.0 [facility] Comment on above: Performed By: #### CBC #### [facility] [address] [place] [address] Dr. Chapo Brewer NEUT # 2.9 103/ul Normal 1.4-6.5 [facility] Comment on above: Performed By: #### CBC #### [facility] [address] [place] [address] Dr. Chapo Brewer Neutrophils/100 WBC (Bld) 56.8 % Normal 43.0-75.0 [facility] Comment on above: Performed By: #### CBC #### [facility] [address] [place] [address] Dr. Chapo Brewer Platelet mean volume (Bld) [Entitic vol] 9.8 fL Normal 9.5-13.5 [facility] Comment on above: Performed By: #### CBC #### [facility] [address] [place] [address] Dr. Chapo Brewer PLT 210 103/ul Normal 150-450 [facility] Comment on above: Performed By: #### CBC #### [facility] [address] [place] [address] Dr. Chapo Brewer RBC 4.98 106/ul Normal 4.70-6.10 [facility] Comment on above: Performed By: #### CBC #### [facility] [address] [place] [address] Dr. Chapo Brewer WBC 5.1 103/ul Normal 4.0-11.0 [facility] Comment on above: Performed By: #### CBC #### [facility] [address] [address] [address] Chapo Brewer Vital Signs Date Time Vital Sign Value Performing Clinician Facility 04-22-2023 09:00-0500 Body height 187.96 cm Meg Reynolds Other [facility] Other 04-22-2023 09:00-0500 Body mass index (BMI) [Ratio] 26.96 kg/m2 Meg Reynolds Other [facility] Other 04-22-2023 09:00-0500 Body temperature 98.5 [degF] Meg Reynolds Other [facility] Other 04-22-2023 09:00-0500 Body weight 95.26 kg Meg Reynolds Other [facility] Other 04-22-2023 09:00-0500 Diastolic blood pressure 92 mm[Hg] Meg Reynolds Other [facility] Other 04-22-2023 09:00-0500 Respiratory rate 18 /min Meg Reynolds Other [facility] Other 04-22-2023 09:00-0500 SaO2% (BldA) [Mass fraction] 98 % Meg Reynolds Other [facility] Other 04-22-2023 09:00-0500 Systolic blood pressure 143 mm[Hg] Meg Reynolds Other [facility] Other 12-03-2022 11:33-0400 Blood Pressure Location David CARNEY [facility] 12-03-2022 11:33-0400 Diastolic blood pressure 80 mm[Hg] David CARNEY [facility] 12-03-2022 11:33-0400 Heart rate 68 /min David CARNEY [facility] 12-03-2022 11:33-0400 Respiratory rate 16 /min David CARNEY [facility] 12-03-2022 11:33-0400 Systolic blood pressure 120 mm[Hg] David CARNEY [facility] 07-17-2022 14:48-0400 Body temperature 97.59 [degF] JOSELYN Reyes MD Work Phone: [facility] 07-17-2022 14:48-0400 Body weight 96.16 kg JOSELYN Reyes MD Work Phone: [facility] 07-17-2022 14:48-0400 Diastolic blood pressure 90 mm[Hg] JOSELYN Reyes MD Work Phone: [facility] 07-17-2022 14:48-0400 Heart rate 64 /min JOSELYN Reyes MD Work Phone: [facility] 07-17-2022 14:48-0400 Respiratory rate 16 /min JOSELYN Reyes MD Work Phone: [facility] 07-17-2022 14:48-0400 SaO2% (BldA) [Mass fraction] 97 % JOSELYN Reyes MD Work Phone: [facility] 07-17-2022 14:48-0400 Systolic blood pressure 135 mm[Hg] JOSELYN Reyes MD Work Phone: [facility] 11-21-2021 08:41-0400 Blood Pressure Location Derek Soto Jr. [facility] 11-21-2021 08:41-0400 Diastolic blood pressure 78 mm[Hg] Derek Soto Jr. [facility] 11-21-2021 08:41-0400 Heart rate 64 /min Derek Soto Jr. [facility] 11-21-2021 08:41-0400 Respiratory rate 16 /min Derek Soto Jr. [facility] 11-21-2021 08:41-0400 Systolic blood pressure 118 mm[Hg] Derek Soto Jr. [facility] Encounters Encounter Date Encounter Type Care Provider Facility Start: 12-06-[address] [facility] Start: 04-22-2023 Office outpatient ne w 20 minutes Meg Reynolds [facility] Start: 04-22-2023 End: 04-22-2023 [facility] Start: 12-03-2022 End: 12-04-2022 ambulatory David CARNEY Facility:[facility] Start: 12-03-2022 End: 12-03-2022 Patient encounter procedure David CARNEY [facility] Start: 07-17-2022 End: 07-17-2022 ambulatory Willy REYES Facility:[facility] Start: 07-17-2022 End: 07-17-2022 Patient encounter procedure Willy Reyes MD Work Phone: [facility] Comment on above: Malignant neoplasm o f prostate (HCC) (Primary Dx) Start: 07-12-2022 End: 07-12-2022 ambulatory MARIAELENA BAILEY Facility:[facility] Start: 03-04-2022 Encounter for genera l adult medical examination without abnormal findings DAVID BAILEY [facility] Start: 02-27-2022 End: 02-28-2022 ambulatory DAVID BAILEY Facility:[facility] Start: 02-27-2022 End: 02-28-2022 Encounter for general adult medical examination without abnormal findings DAVID BAILEY Facility:[facility] Start: 01-16-2022 End: 01-16-2022 ambulatory Willy REYES Facility:[facility] Start: 01-12-2022 End: 01-12-2022 ambulatory MARIAELENA BAILEY Facility:[facility] Start: 11-21-2021 End: 11-21-2021 Patient encounter procedure Derek Soto Jr. [facility] Start: 08-17-2021 End: 08-18-2021 ambulatory DAVID BAILEY Facility:[facility] Start: 07-17-2021 End: 07-18-2021 ambulatory DAVID BAILEY Facility:[facility] Start: 05-18-2021 End: 05-19-2021 ambulatory DAVID BAILEY Facility:[facility] Start: 06-16-2020 End: 06-16-2020 Patient encounter procedure External Provider [facility] Start: 06-16-2020 Results Only External Provider Exter nal-NonCCF Procedures Date Procedure Procedure Detail Performing Clinician Start: 07-17-2021 PSA screening DAVID BAILEY Comment on above: Performed By: #### P SAD #### [facility] [address] [place] [address] Dr. Chapo Brewer Start: 08-31-2020 Brachytherapy implan t (physical object) Derek Soto Jr. Start: 06-16-2020 EXTERNAL LAB External P rovider Start: 05-19-2020 Transrectal biopsy o f prostate using ultrasound guidance Derek Soto Jr. Basal cell carcinoma of neck (disorder) David ROMMEL Colonoscopy Derek Soto Jr Mitzy Plan of Treatment Date Care Activity Detail Author Start: 07-13-2027 PROSTATE CANCER SCREENING DISCUSSION PROSTATE CANCER SCREENING DISCUSSION [facility] Start: 01-17-2023 End: 03-19-2023 Prostate specific Ag [Mass/volume] in Serum or Plasma PSA/PROSTSPECAG DIAG Lab Routine Malignant neoplasm of prostate (HCC) Expected: 01/17/2023, Expires: 03/19/2023 [facility] Work Phone: Comment on above: Expected: 01/17/2023 , Expires: 03/19/2023 Start: 05-06-2022 DEPRESSION ASSESSMENT DEPRESSION ASS ESSMENT [facility] Start: 01-04-2022 Influenza vaccination INFLUENZA (#1) [facility] Start: 05-11-2021 COVID-19 VACCINE (4 - Booster for Pfizer series) COVID-19 VACCINE (4 - Booster for Pfizer series) [facility] Start: 01-05-2020 Influenza vaccination INFLUENZA (#1) [facility] Start: 2015 PROSTATE CANCER SCREENING DISCUSSION PROSTATE CANCER SCREENING DISCUSSION [facility] Start: 2010 Screening for malign ant neoplasm of colon [facility] Start: 2010 SHINGRIX VACCINE (1 of 2) SHINGRIX VACCINE (1 of 2) [facility] Start: 2005 COLOGUARD (FIT-DNA) COLOGUARD (FIT-D NA) [facility] Start: 2005 Colonoscopy COLONOSCOPY [facility] Start: 2005 COLORECTAL CANCER SCREENING COLORECTAL CANCER SCREENING [facility] Start: [address] COLONOGRAPHY [facility] Start: 2005 DIABETES SCREEN DIABETES SCREEN [facility] Start: 2005 FECAL OCCULT BLOOD FECAL OCCULT BLOO D [facility] Start: 2005 SIGMOIDOSCOPY SIGMOIDOSCOPY [facility] Start: 1995 LIPID SCREEN LIPID SCREEN [facility] Start: 1979 Urine microalbumin profile DTAP,TDAP,TD (1 - Tdap) [facility] Start: 1978 HEPATITIS C SCREENING HEPATITIS C SC DAVID [facility] Start: 1978 HIV SCREENING HIV SCREENING [facility] Start: 1972 Adult depression screening assessment DEPRESSION SCREENING [facility] Immunizations Immunization Date Immunization Notes Care Provider Aleks alfredo 05-15-2021 influenza virus vaccine, unspecified formulation David CARNEY [facility] 05-15-2021 zoster vaccine recombinant David CARNEY [facility] 03-16-2021 SARS-CoV-2 (COVID-19 ) mRNA BNT-162b2 vax David CARNEY [facility] 08-13-2020 COVID-19 original vaccine, age 12+ yr, monovalent (PFIZER-BIONTECH - PURPLE TOP) JOSELYN Reyes MD Work Phone: [facility] 07-22-2020 COVID-19 original vaccine, age 12+ yr, monovalent (PFIZER-BIONTECH - PURPLE TOP) JOSELYN Reyes MD Work Phone: [facility] 02-28-2018 influenza virus vaccine, unspecified formulation David CARNEY [facility] 07-25-2015 influenza virus vaccine, unspecified formulation David CARNEY [facility] 07-25-2015 tetanus toxoid, reduced diphtheria toxoid, and acellular pertussis vaccine, adsorbed David CARNEY [facility] NEGATED: Highlighted row has not occurred!06-14-2020 influenza virus vaccine, unspecified formulation Derek Soto Jr. [facility] Payers Date Payer Category Payer Self-pay 2018 Unknown [employer] PPO [id number] 2018-Present PPO [id number] 2018 Unknown [employer] PPO [id number] 2018-Present [phone] [address] [place] [address] PPO [id number] 1960 Unknown [id number] 1960 Unknown [id number] 1960 Unknown [id number] 1960 Unknown [id number] 1960 Unknown [id number] 1960 Unknown [id number] 1959 Unknown [id number] Unknown [id number] Social History Date Type Detail [facility] Start: 1960 Sex Assigned At Not on file C [facility] Start: 11-21-2021 End: 12-03-2022 Tobacco smoking status Never smoked tobacco (finding) [facility] Sex Assigned At Male [facility] Start: 01-16-2022 Tobacco use and exposure Smokeless tobacco non-user [facility] Start: 03-14-2023 Alcohol intake Current drinke r of alcohol (finding) [facility] Start: 06-17-2020 Alcohol Comment couple times a week [facility] Tobacco smoking status Never [facility] Functional Status Date Assessment Result Facility 12-03-2022 Functional Status N/A [facility] 11-21-2021 Functional Status N/A [facility] Clinical Notes 11-21-2021 to 04-22-2023 Note Date & Type Note Facility 04-22-2023 Evaluation note Encounter Date Diagnosis Assessment Notes Apr, Left ankle pain, unspecified chronicity (ICD-10 - M25.572) Apr, Left ankle sprain (ICD-10 - S93.402A) XR done, no acute bony abnormality, discussed final report c pt while in clinic. toralol inj given in clinic, pt tolerated well. advised RICE therapy. rx sent, use as directed. otc tylenol prn for breakthrough pain. MELISSA wrap given. immediate eval if warning symptoms of intractable pain or s/s of neurovascular compromise. otherwise follow up with PCP if new/worsening symptoms. [facility] Other 07-31-2023 Hospital Discharge instructions Patient Education 12/03/2022 12:29:56 Prostate Cancer Prostate Cancer The prostate is a small gland that produces fluid that makes up semen (seminal fluid). It is located below the bladder in men, in front of the rectum. Prostate cancer is the abnormal growth of cells in the prostate gland. What are the causes? The exact cause of this condition is not known. What increases the risk? You are more likely to develop this condition if: You are 65 years of age or older. You have a family history of prostate cancer. You have a family history of breast and ovarian cancer. You have genes that are passed from parent to child (inherited), such as BRCA1 and BRCA2. You have Estes syndrome. men and men of descent are diagnosed with prostate cancer at higher rates than other men. The reasons for this are not well understood and are likely due to a combination of genetic and environmental factors. What are the signs or symptoms? Symptoms of this condition include: Problems with urination. This may include: ?A weak or interrupted flow of urine. ?Trouble starting or stopping urination. ?Trouble emptying the bladder all the way. ?The need to urinate more often, especially at night. Blood in urine or semen. Persistent pain or discomfort in the lower back, lower abdomen, or hips. Trouble getting an erection. Weakness or numbness in the legs or feet. How is this diagnosed? This condition can be diagnosed with: A digital rectal exam. For this exam, a health care provider inserts a gloved finger into the rectum to feel the prostate gland. A blood test called a prostate-specific antigen (PSA) test. A procedure in which a sample of tissue is taken from the prostate and checked under a microscope (prostate biopsy). An imaging test called transrectal ultrasonography. Once the condition is diagnosed, tests will be done to determine how far the cancer has spread. This is called staging the cancer. Staging may involve imaging tests, such as a bone scan, CT scan, PETscan, or MRI. Stages of prostate cancer The stages of prostate cancer are as follows: Stage 1 (I). At this stage, the cancer is found in the prostate only. The cancer is not visible on imaging tests, and it is usually found by accident, such as during prostate surgery. Stage 2 (II). At this stage, the cancer is more advanced than it is in stage 1, but the cancer has not spread outside the prostate. Stage 3 (III). At this stage, the cancer has spread beyond the outer layer of the prostate to nearby tissues. The cancer may be found in the seminal vesicles, which are near the bladder and the prostate. Stage 4 (IV). At this stage, the cancer has spread to other parts of the body, such as the lymph nodes, bones, bladder, rectum, liver, or lungs. Prostate cancer grading Prostate cancer is also graded according to how the cancer cells look under a microscope. This is called the Rockwood score and the total score can range from 6 10, indicating how likely it is that the cancer will spread (metastasize) to other parts of the body. The higher the score, the greater thelikelihood that the cancer will spread. Rockwood 6 or lower: This indicates that the cancer cells look similar to normal prostate cells (well differentiated). Rockwood 7: This indicates that the cancer cells look somewhat similar to normal prostate cells (moderately differentiated). Rockwood 8, 9, or 10: This indicates that the cancer cells look very different than normal prostate cells (poorly differentiated). How is this treated? Treatment for this condition depends on several factors, including the stage of the cancer, your age, personal preferences, and your overall health. Talk with your health care provider about treatment options that are recommended for you. Common treatments include: Observation for early stage prostate cancer (active surveillance). This involves having exams, blood tests, and in some cases, more biopsies. For some men, this is the only treatment needed. Surgery. Types of surgeries include: ?Open surgery (radical prostatectomy). In this surgery, a larger incision is made to remove the prostate. ?A laparoscopic radical prostatectomy. This is a surgery to remove the prostate and lymph nodes through several small incisions. It is often referred to as a minimally invasive surgery. ?A robotic radical prostatectomy. This is laparoscopic surgery to remove the prostate and lymph nodes with the help of robotic arms that are controlled by the surgeon. ?Cryoablation. This is surgery to freeze and destroy cancer cells. Radiation treatment. Types of radiation treatment include: ?External beam radiation. This type aims beams of radiation from outside the body at the prostate to destroy cancerous cells. ?Brachytherapy. This type uses radioactive needles, seeds, wires, or tubes that are implanted into the prostate gland. Like external beam radiation, brachytherapy destroys cancerous cells. An advantage is that this type of radiation limits the damage to surrounding tissue and has fewer side effects. Chemotherapy. This treatment kills cancer cells or stops them from multiplying. It kills both cancer cells and normal cells. Targeted therapy. This treatment uses medicines to kill cancer cells without damaging normal cells. Hormone treatment. This treatment involves taking medicines that act on testosterone, one of the male hormones, by: ?Stopping your body from producing testosterone. ?Blocking testosterone from reaching cancer cells. Follow these instructions at home: Lifestyle Do not use any products that contain nicotine or tobacco. These products include cigarettes, chewing tobacco, and vaping devices, such as e-cigarettes. If you need help quitting, ask your health careprovider. Eat a healthy diet. To do this: ?Eat foods that are high in fiber. These include beans, whole grains, and fresh fruits and vegetables. ?Limit foods that are high in fat and sugar. These include fried or sweet foods. Treatment for prostate cancer may affect sexual function. If you have a partner, continue to have intimate moments. This may include touching, holding, hugging, and caressing your partner. Get plenty of sleep. Consider joining a support group for men who have prostate cancer. Meeting with a support group mayhelp you learn to manage the stress of having cancer. General instructions Take fndp-fkw-hzbkfey and prescription medicines only as told by your health care provider. If you have to go to the hospital, notify your cancer specialist (oncologist). Keep all follow-up visits. This is important. Where to find more information [employer]: www.cancer.org [place] [employer]: www.cancer.net [employer] [place]: www.cancer.gov Contact a health care provider if: You have new or increasing trouble urinating. You have new or increasing blood in your urine. You have new or increasing pain in your hips, back, or chest. Get help right away if: You have weakness or numbness in your legs. You cannot control urination or your bowel movements (incontinence). You have chills or a fever. Summary The prostate is a small gland that is involved in the production of semen. It is located below a man's bladder, in front of the rectum. Prostate cancer is the abnormal growth of cells in the prostate gland. Treatment for this condition depends on the stage of the cancer, your age, personal preferences, and your overall health. Talk with your health care provider about treatment options that are recommended for you. Consider joining a support group for men who have prostate cancer. Meeting with a support group mayhelp you learn to manage the stress of having cancer. This information is not intended to replace advice given to you by your health care provider. Make sure you discuss any questions you have with your health care provider. Document Revised: 07/19/2021 Document Reviewed: 07/19/2021 [employer] Patient Education 2022 [employer]. Follow Up Care 11/21/2021 08:58:33 With:ROMMEL AVINA, David Rangel, URL Address: [facility] [address] , [place] [address]- [phone] When: Unknown Comments:1 yr w/ PSA [facility] 03-14-2023 NoteHNO ID: [id number] Author: Willy Reyes MD Service: ? Author Type: Physician Type: Progress Notes Filed: 07/20/2022 9:46 AM Note Text: Radiation Oncology - Follow Up Note PATIENT NAME: Loyd Alford PATIENT DIAGNOSIS: Prostate adenocarcinoma, initial PSA 5.5, biopsy Pawel score 3 + 3 = 6 (grade group 1), clinical stage T1c, N0, M0, stage I [cT1a-c/T2a, N0, M0, PSA <10, GG 1] (AJCC 8th ed.), s/p TRUS Random biopsy. Prostate cancer (C61), 2019 NCCN Risk Group: Low Risk Group RADIATION SUMMARY: 08/31/20 I-125 prostate transperineal brachytherapy implant, 145 Gy, 67 sources, 26.33 mCi. INTERVAL HISTORY: Doing well denies new problems or concerns. PSA HISTORY: PSA (ng/mL) Date Value 07/12/2022 1.34 01/12/2022 1.69 PSA. (no units) Date Value 07/17/2021 1.75 07/17/2021 1.75 01/13/2021 4.54 10/10/2020 10.95 ALLERGIES No Known Allergies tamsulosin (FLOMAX) 0.4 mg Take 1 capsule by mouth once daily. lisinopril (ZESTRIL, PRINIVIL) 10 mg tablet Take 10 mg by mouth once daily. docosahexaenoic acid/epa (FISH OIL ORAL) Take by mouth. REVIEW OF SYSTEMS: D/N = 4-6/1-2 Hematuria: none Dysuria: no Incontinence: none, occasional postvoid dribbling no pad Urgency: Mild Catheter use: No Medications to aid urination: flomax - Total AUA Score: 12 Bowel movement frequency: 1/day Bowel movement quality: normal Blood per rectum: none PHYSICAL EXAM: BP 135/90 Pulse 64 Temp 36.4 ?C (97.6 ?F) Resp 16 Wt 96.2 kg (212 lb) SpO2 97% BMI 26.92 kg/m? KPS: 100 General appearance: Alert and oriented. No acute distress. Abdomen: Normal abdominal exam, Abdomen soft, non-tender. No masses, organomegaly. Rectal exam def Extremities: No deformities, edema, skin discoloration, clubbing or cyanosis. Lymph Nodes: No cervical lymphadenopathy, No supraclavicular lymphadenopathy, No axillary lymphadenopathy. Skin: Skin color, texture, turgor normal, no suspicious rashes or lesions. ASSESSMENT/PLAN:Prostate adenocarcinoma, initial PSA 5.5, biopsy Pawel score 3 + 3 = 6 (grade group 1), clinical stage T1c, N0, M0, stage I [cT1a-c/T2a, N0, M0, PSA <10, GG 1] status post prostate brachytherapy PSA continues to show response. No other new problems related to prior brachytherapy. Plan for follow-up in 6 months with repeat PSA. Signed by: Willy Reyes MD cc: Mariaelena Bailey, SENIOR SYSTEMS ANALYST ([facility]) [address] [place] [address] Dr. Soto Portions of the above note extracted and edited from previous visit as well as active information included in the EMR.[facility] 07-17-2022 History of Present illness Narrative* Willy Reyes MD - 07/17/2022 2:55 PM EDT Radiation Oncology - Follow Up Note PATIENT NAME: Loyd Alford PATIENT DIAGNOSIS: Prostate adenocarcinoma, initial PSA 5.5, biopsy Rockwood score 3 + 3 = 6 (grade group 1), clinical stage T1c, N0, M0, stage I [cT1a-c/T2a, N0, M0, PSA <10, GG 1] (AJCC 8th ed.), s/p TRUS Random biopsy. Prostate cancer (C61), 2019 NCCN Risk Group: Low Risk Group RADIATION SUMMARY: 08/31/20 I-125 prostate transperineal brachytherapy implant, 145 Gy, 67 sources, 26.33 mCi. INTERVAL HISTORY: Doing well denies new problems or concerns. PSA HISTORY: PSA (ng/mL) Date Value 07/12/2022 1.34 01/12/2022 1.69 PSA. (no units) Date Value 07/17/2021 1.75 07/17/2021 1.75 01/13/2021 4.54 10/10/2020 10.95 ALLERGIES No Known Allergies tamsulosin (FLOMAX) 0.4 mg Take 1 capsule by mouth once daily. lisinopril (ZESTRIL, PRINIVIL) 10 mg tablet Take 10 mg by mouth once daily. docosahexaenoic acid/epa (FISH OIL ORAL) Take by mouth. REVIEW OF SYSTEMS: D/N = 4-6/1-2 Hematuria: none Dysuria: no Incontinence: none, occasional postvoid dribbling no pad Urgency: Mild Catheter use: No Medications to aid urination: flomax - Total AUA Score: 12 Bowel movement frequency: 1/day Bowel movement quality: normal Blood per rectum: none PHYSICAL EXAM: BP 135/90 Pulse 64 Temp 36.4 C (97.6 F) Resp 16 Wt 96.2 kg (212 lb) SpO2 97% BMI 26.92 kg/m KPS: 100 General appearance: Alert and oriented. No acute distress. Abdomen: Normal abdominal exam, Abdomen soft, non-tender. No masses, organomegaly. Rectal exam def Extremities: No deformities, edema, skin discoloration, clubbing or cyanosis. Lymph Nodes: No cervical lymphadenopathy, No supraclavicular lymphadenopathy, No axillary lymphadenopathy. Skin: Skin color, texture, turgor normal, no suspicious rashes or lesions. ASSESSMENT/PLAN:Prostate adenocarcinoma, initial PSA 5.5, biopsy Rockwood score 3 + 3 = 6 (grade group 1), clinical stage T1c, N0, M0, stage I [cT1a-c/T2a, N0, M0, PSA <10, GG 1] status post prostate brachytherapy PSA continues to show response. No other new problems related to prior brachytherapy. Plan for follow-up in 6 months with repeat PSA. Signed by: Willy Reyes MD cc: Mariaelena Bailey, SENIOR SYSTEMS ANALYST ([facility]) [address] [place] [address] Dr. Soto Portions of the above note extracted and edited from previous visit as well as active information included in the EMR. [facility]* Елена Reynolds LPN - 07/17/2022 2:49 PM EDT AUA= 12 documented [facility] [address] [facility] NoteHNO ID: [id number] Author: Willy Reyes MD Service: ? Author Type: Physician Type: Progress Notes Filed: 01/16/2022 3:08 PM Note Text: Radiation Oncology - Follow Up Note PATIENT NAME: Loyd Alford PATIENT DIAGNOSIS: Prostate adenocarcinoma, initial PSA 5.5, biopsy Pawel score 3 + 3 = 6 (grade group 1), clinical stage T1c, N0, M0, stage I [cT1a-c/T2a, N0, M0, PSA <10, GG 1] (AJCC 8th ed.), s/p TRUS Random biopsy. Prostate cancer (C61), 2019 NCCN Risk Group: Low Risk Group RADIATION SUMMARY: 08/31/20 I-125 prostate transperineal brachytherapy implant, 145 Gy, 67 sources, 26.33 mCi. INTERVAL HISTORY: Doing well denies new problems or concerns. PSA HISTORY: PSA (ng/mL) Date Value 01/12/2022 1.69 PSA. (no units) Date Value 07/17/2021 1.75 07/17/2021 1.75 01/13/2021 4.54 10/10/2020 10.95 ALLERGIES No Known Allergies tamsulosin (FLOMAX) 0.4 mg Take 1 capsule by mouth once daily. lisinopril (ZESTRIL, PRINIVIL) 10 mg tablet Take 10 mg by mouth once daily. docosahexaenoic acid/epa (FISH OIL ORAL) Take by mouth. REVIEW OF SYSTEMS: D/N = 4-6/1-2 Hematuria: none Dysuria: y Incontinence: none, occasional postvoid dribbling no pad Urgency: Mild Catheter use: No Medications to aid urination: flomax - Total AUA Score: 12 Bowel movement frequency: 1/day Bowel movement quality: normal Blood per rectum: none PHYSICAL EXAM: Pulse 63 Temp 36.3 ?C (97.3 ?F) Resp 16 Wt 93.4 kg (206 lb) SpO2 99% BMI 26.16 kg/m? KPS: 100 General appearance: Alert and oriented. No acute distress. Abdomen: Normal abdominal exam, Abdomen soft, non-tender. No masses, organomegaly. Rectal exam def Extremities: No deformities, edema, skin discoloration, clubbing or cyanosis. Lymph Nodes: No cervical lymphadenopathy, No supraclavicular lymphadenopathy, No axillary lymphadenopathy. Skin: Skin color, texture, turgor normal, no suspicious rashes or lesions. ASSESSMENT/PLAN:Prostate adenocarcinoma, initial PSA 5.5, biopsy Rockwood score 3 + 3 = 6 (grade group 1), clinical stage T1c, N0, M0, stage I [cT1a-c/T2a, N0, M0, PSA <10, GG 1] status post prostate brachytherapy Doing well with stable and decreasing PSA. No significant problems related to prior treatment. Recommend continued follow-up with PSA in 6 months. Signed by: Willy Reyes MD cc: Mariaelena Bailey SENIOR SYSTEMS ANALYST ([facility]) [address] [place] [address] Dr. Soto Portions of the above note extracted and edited from previous visit as well as active information included in the EMR.[facility] 11-21-2021 Hospital Discharge instructions Patient Education 11/21/2021 08:51:29 Prostate-Specific Antigen Test Prostate-Specific Antigen Test Why am I having this test? The prostate-specific antigen (PSA) test is a screening test for prostate cancer. It can identify early signs of prostate cancer, which may allow for more effective treatment. Your health care provider may recommend that you have a PSA test starting at age 40 or that you have one earlier or later, depending on your risk factors for prostate cancer. You may also have a PSA test: To monitor treatment of prostate cancer. To check whether prostate cancer has returned after treatment. If you have signs of other conditions that can affect PSA levels, such as: ?An enlarged prostate that is not caused by cancer (benign prostatic hyperplasia, BPH). This condition is very common in older men. ?A prostate infection. What is being tested? This test measures the amount of PSA in your blood. PSA is a protein that is made in the prostate. The prostate naturally produces more PSA as you age, but very high levels may be a sign of a medicalcondition. What kind of sample is taken? A blood sample is required for this test. It is usually collected by inserting a needle into a blood vessel or by sticking a finger with a small needle. Blood for this test should be drawn before having an exam of the prostate. How do I prepare for this test? Do not ejaculate starting 24 hours before your test, or as long as told by your health care provider. Tell a health care provider about: Any allergies you have. All medicines you are taking, including vitamins, herbs, eye drops, creams, and [id number] medicines. This also includes: ?Medicines to assist with hair growth, such as finasteride. ?Any recent exposure to a medicine called diethylstilbestrol. Any blood disorders you have. Any recent procedures you have had, especially any procedures involving the prostate or rectum. Any medical conditions you have. Any recent urinary tract infections (UTIs) you have had. How are the results reported? Your test results will be reported as a value that indicates how much PSA is in your blood. This will be given as nanograms of PSA per milliliter of blood (ng/mL). Your health care provider will compare your results to normal ranges that were established after testing a large group of people (reference ranges). Reference ranges may vary among labs and hospitals. PSA levels vary from person to person and generally increase with age. Because of this variation, there is no single PSA value that is considered normal for everyone. Instead, PSA reference ranges are used to describe whether your PSA levels are considered low or high (elevated). Common reference ranges are: Low: 0 2.5 ng/mL. Slightly to moderately elevated: 2.6 10.0 ng/mL. Moderately elevated: 10.0 19.9 ng/mL. Significantly elevated: 20 ng/mL or greater. Sometimes, the test results may report that a condition is present when it is not present (false-positive result). What do the results mean? A test result that is higher than 4 ng/mL may mean that you are at an increased risk for prostate cancer. However, a PSA test by itself is not enough to diagnose prostate cancer. High PSA levels may also be caused by the natural aging process, prostate infection, or BPH. PSA screening cannot tell you if your PSA is high due to cancer or a different cause. A prostate biopsy is the only way to diagnose prostate cancer. A risk of having the PSA test is diagnosing and treating prostate cancer that would never have caused any symptoms or problems (overdiagnosis and overtreatment). Talk with your health care provider about what your results mean. Questions to ask your health care provider Ask your health care provider, or the department that is doing the test: When will my results be ready? How will I get my results? What are my treatment options? What other tests do I need? What are my next steps? Summary The prostate-specific antigen (PSA) test is a screening test for prostate cancer. Your health care provider may recommend that you have a PSA test starting at age 40 or that you have one earlier or later, depending on your risk factors for prostate cancer. A test result that is higher than 4 ng/mL may mean that you are at an increased risk for prostate cancer. However, elevated levels can be caused by a number of conditions other than prostate cancer. Talk with your health care provider about what your results mean. This information is not intended to replace advice given to you by your health care provider. Make sure you discuss any questions you have with your health care provider. Document Released: 05/25/2005 Document Revised: 04/04/2018 Document Reviewed: 01/27/2018 [employer] Patient Education [employer]. Follow Up Care 02/21/2021 09:05:23 With:Derek Soto Jr., MD, URO Address: [facility] [address], [place] [address]- When:Within 1 Year(s) Comments:w/. pvr [facility] evaluation + Plan note Future Appointments Appointment Date:11/27/2022 08:00:00 AM Scheduled Provider:Derek Soto Jr., MD Location:[facility] Appointment Type:URO Office Visit [facility] evaluation + Plan note Future Appointments Appointment Date:12/06/2023 08:15:00 AM Scheduled Provider:David CARNEY MD Location:[facility] Appointment Type:URO Office Visit Diagnostic Tests Pending * PSA Total 12/03/22 [facility] Evaluation note* Diagnosis Malignant neoplasm of prostate (HCC)- Primary Malignant neoplasm of prostate [facility] - Reported* Type Description Date Medical History HTN (hypertension) Medical History BPH (benign prostatic hyperplasi a) Medical History Prostate cancer Surgical History radiatin see implant to prostat e Wibi[facility] Other Hospital course Narrative No data available for this section [facility] progress note No data available for this section [facility] Summary Purpose Family History No Family History Records FoundNo Family History Records FoundNo Family History Records FoundNo Family History Records Found Advance Directives No Advanced Directives Records FoundNo Advanced Directives Records FoundNo Advanced Directives Records FoundNo Advanced Directives Records Found Additional Source Comments Source Comments (unrecognize d section and content) In the event this informatio n is protected by the Federal Confidentiality of Alcohol and Drug Abuse Patient Records regulations: The Federal rules restrict any use of the information to criminally investigate or prosecute any alcohol or drug abuse patient.[facility] the event this information is protected by the Federal Confidentiality of Alcohol and Drug Abuse Patient Records regulations: The Federal rules restrict any use of the information to criminally investigate or prosecute any alcohol or drug abuse patient.[facility] Care Team (unrecognized sect ion and content) Clinical Trial Specialist Relationship Specialty Start Date End Date Mariaelena Bailey, SENIOR SYSTEMS ANALYST [address] [place] [address] PCP - General Family Medicine 06/15/20 (unrecognized sect ion and content) No Status Records FoundNo Status Records FoundNo Status Records FoundNo Status Records Found INFORMATION SOURCE (unrecogn ized section and content) DATE CREATED AUTHOR 03/04/2022 [facility] DATE CREATED AUTHOR AUTHOR'S ORGANIZ ATION 01/11/2023 [facility] DATE CREATED AUTHOR AUTHOR'S ORGANIZ ATION 06/14/2023 [facility] DATE CREATED AUTHOR AUTHOR'S ORGANIZ ATION 07/22/2023 [facility] Reason for Visit (unrecogniz ed section and content) Reason Comments Prostate Cancer FOR RECORDS PERTAINING TO PATIENTS WHO ARE OR HAVE BEEN ENROLLED IN A CHEMICAL DEPENDENCY/SUBSTANCEABUSE PROGRAM, SOME INFORMATION MAY BE OMITTED. This clinical summary was aggregated from multiple sources. Caution should be exercised in using it in the provision of clinical care. This summary normalizes information from multiple sources, and as a consequence, information in this document may materially change the coding, format and clinical context of patient data. In addition, data may be omitted in some cases. CLINICAL DECISIONS SHOULD BE BASED ON THE PRIMARY CLINICAL RECORDS. [employer] [facility] [employer]. provides no warranty or guarantee of the accuracy or completeness of information in this document.
[2023-07-24 08:35] LABS: Prostate Specific Antigen Dx 0.91 ng/mL (<=4.00)
== END 2023-07-24 07:12 | disposition home or self-care (01) ==
LOC: LAB 07:14
PROVIDERS: PCP Nurse Practitioner; Visit Provider Urology
DX: C61 Malignant neoplasm of prostate (principal)
CPT/HCPCS: 36415; 84153

== ENCOUNTER 2023-11-28 07:05 | Outpatient (OUT) | payer OTHER, SELFPAY ==
--- OUTSIDE RECORDS SUMMARY | 2023-11-28 07:08 | XMS_ITS | CCD ---
Author Organization [facility] Care Team Providers Care Shovel Oiler Name Role Phone Mariaelena Bailey Primary Care Provider [phone] MARIAELENA BAILEY Primary Care Physician AICHJUAN CLERK SPECIALIST MARIAELENA Admitting Unavailable AICHHOLZ, CLERK SPECIALIST MARIAELENA Primary Care Unavailable AICHHOLZ, CLERK SPECIALIST MARIAELENA Consulting Unavailable AICHHOLZ, CLERK SPECIALIST MARIAELENA Attending Unavailable AICHHOLZ, CLERK SPECIALIST MARIAELENA Admitting Unavailable AICHHOLZ, CLERK SPECIALIST MARIAELENA Primary Care Unavailable AICHHOLZ, CLERK SPECIALIST MARIAELENA Consulting Unavailable AICHHOLZ, CLERK SPECIALIST MARIAELENA Attending Unavailable AICHHOLZ, CLERK SPECIALIST MARIAELENA Admitting Unavailable AICHHOLZ, CLERK SPECIALIST MARIAELENA Primary Care Unavailable AICHHOLZ, CLERK SPECIALIST MARIAELENA Consulting Unavailable AICHHOLZ, CLERK SPECIALIST MARIAELENA Attending Unavailable AICHHOLZ, CLERK SPECIALIST MARIAELENA Primary Care Unavailable DR TJ REYES Admitting Unavailable DR TJ REYES Consulting Unavailable DR TJ REYES Attending Unavailable Aichholz Mariaelena HERNANDEZ Primary Care Provider Willy REYES Referring Unavailable Willy REYES Attending Unavailable MARIAELENA BAILEY Primary Care Unavailable AICVICENTA, MARIAELENA MARIE Primary Care Unavailable Willy REYES Referring Unavailable Willy REYES Attending Unavailable IDAHJUAN, MARIAELENA MARIE Primary Care Unavailable AICHHOLOlive, MARIAELENA MARIE Primary Care Unavailable Willy REYES Referring Unavailable Reynolds, Meg Unavailable Reynolds, Meg Attending Unavailable Reynolds, Meg Admitting Unavailable David CARNEY Attending Unavailable David CARNEY Attending Unavailable AICHJUAN, MARIAELENA Attending Unavailable AICHJUAN, MARIAELENA Attending Unavailable Medications Current Medications Medication Drug [...] activity., # 30 tab(s), Refills(s) 5, Pharmacy: [id number], 188, cm, 11/21/21 8:42:00 EDT, Height/Length Dosing, 95.1, kg, 11/21/21 8:42:00 EDT, Weight Dosing Start Date: 07/31/22 Status: Ordered Start: 02-21-2021 Viagra 100 mg Tab 100 mg = 1 tab(s), Oral, As Directed, 1 hour before sexual activity., # 30 tab(s), Refills(s) 2, Pharmacy: [facility] 594, 188, cm, 02/21/21 8:28:00 EDT, Height/Length Dosing, 95.1, kg, 02/21/21 8:28:00 EDT, Weight Dosing Start Date: 02/21/21 Status: Ordered tamsulosin hydrochloride 0.4 mg oral capsule (4 sources) alpha-Adrenergic Aden Start: 12-03-2022 End: 11-28-2023 take 1 capsule by mouth once daily tamsulosin 0.4 mg Cap 0.4 mg = 1 cap(s), Oral, Daily, X 90 day(s), # 90 cap(s), Refills(s) 3, Pharmacy: [facility] #[id number], 188, cm, 12/03/22 11:35:00 EDT, Height/Length Dosing, 94, kg, 12/03/22 11:35:00 EDT, Weight Dosing Start Date: 12/03/22 Stop Date: 11/28/23 Status: Ordered Start: 01-17-2021 take 1 capsule by mo ut once daily tamsulosin 0.4 mg Cap 0.4 mg = 1 cap(s), Oral, Daily, # 30 cap(s), Refills(s) 11, Pharmacy: [facility]/pharmacy #[id number], 188, cm, 02/21/21 8:28:00 EDT, Height/Length Dosing, 95.1, kg, 02/21/21 8:28:00 EDT, Weight Dosing Start Date: 08/30/21 Status: Ordered Comment on above: Take 1 capsule by [facility] once daily. Completed/Discontinued Medications Medication Drug Class(es) [...] Test Name Value Interpretation Reference Range Facility Lab Report[facility] 07-25-2023 Lab Reports [id number] Normal [facility] Reminderson 07-22-2023 Reminders - From: Gabriella Wilks [...] - Recalls Rommel) To: EU - Recalls Rommel; Sent: 06/07/2023 12:37:29 EST Show up: 07/08/2023 12:37:00 EST Subject: RE: PSA Due Date/Time: 07/12/2023 12:37:00 EST [facility] & requested Dr Reyes's last note. Spoke to pt. He is no longer following with Dr Reyes. He will get his PSA done @ [facility] sometime this week. Order has been faxed to [facility]. Normal [facility] XR ankle LT min 3V*on 2022 XR ankle LT min 3V* [facility] Other XR ankle LT min 3V* [facility] Main [facility] Other XR ankle LT min 3V* [address] [place] [address] [employer] Other XR ankle LT min 3V* LAUREN [place] [address] [employer] Other XR ankle LT min 3V* XRay Report [facility] Other XR ankle LT min 3V* Signed [employer] Other XR ankle LT min 3V* Patient: Loyd Alford MR#: [id number] [place] [employer] Other XR ankle LT min 3V* : 1960 Acct:[id number] [employer] Other XR ankle LT min 3V* Age/Sex: 62 / M ADM Date: 04/22/23 [employer] Other XR ankle LT min 3V* Loc: XDUCLY [facility] Other XR ankle LT min 3V* Attending Dr: Meg Oakes [employer] Other XR ankle LT min 3V* Copies to: Meg Reynolds NP [employer] Other XR ankle LT min 3V* Ordering Provider: Meg Reynolds NP [employer] Other XR ankle LT min 3V* Date of Service: 04/22/23 [employer] Other XR ankle LT min 3V* XR/XR ankle LT min 3V*: M25.572 [employer] Other XR ankle LT min 3V* 3 views left ankle plain film [employer] Other XR ankle LT min 3V* COMPARISON: None [employer] Other XR ankle LT min 3V* HISTORY: Left ankle pain and swelling for 2 days. [employer] Other XR ankle LT min 3V* ACUTE FINDINGS: None [employer] Other XR ankle LT min 3V* DEGENERATIVE CHANGE: Minor marginal spurring. Tana deformity which may be incidental. Chronic [employer] Other XR ankle LT min 3V* bony densities of the superior portion of the talar head. Adjacent soft tissue prominence. [employer] Other XR ankle LT min 3V* SOFT TISSUE FINDINGS: Diffuse soft tissue prominence [employer] Other XR ankle LT min 3V* JOINT EFFUSION: None [employer] Other XR ankle LT min 3V* POSTOP CHANGES: None [employer] Other XR ankle LT min 3V* BONE MINERALIZATION: Adequate [employer] Other XR ankle LT min 3V* XR/XR ankle LT min 3V* [employer] Other XR ankle LT min 3V* IMPRESSION: Degenerative change. Soft tissue prominence [employer] Other XR ankle LT min 3V* Impression dictated by: Chao Wallace M.D.04/22/2023 9:57 AM [employer] Other XR ankle LT min 3V* Dictation Location: [place] [address] [employer] Other XR ankle LT min 3V* Transcribed By: NÉSTOR 04/22/2357 [employer] Other XR ankle LT min 3V* Dictated By: Chao Wallace DO 04/22/2354 [employer] Other XR ankle LT min 3V* Signed By: [employer] Other XR ankle LT min 3V* 04/22/23956 [employer] Other XR ankle LT min 3V* [facility] Main [place] [address] [place] [address] XRay Report Signed Patient: Loyd Alford MR#: [id number] : 1960 Acct:[id number] Age/Sex: 62 / M ADM Date: 04/22/23 Loc: XDUCLY Room: Type: [facility] Attending Dr: Meg Reynolds RECREATION FACILITY ATTENDANT Copies to: Meg Reynolds NP Ordering Provider: Meg Reynolds NP Date of Service: 04/22/23 XR/XR [...] Chao Wallace M.D.04/22/2023 9:57 AM Dictation Location: [facility] Transcribed By: NÉSTOR 04/22/23956 Dictated By: Chao Wallace DO 04/22/2354 Signed By: 04/22/2357 [facility] 01-10-2023 [facility] (RAD[facility]SA[facility] LOYD ALFORD ([id number]) 1960 M Date Time Provider Department 01/10/23 [...] pt. Tiff- please cancel follow up. ESPINOZA Billingsley Tiffany 01/10/2023 12:56 PM Signed Cancelled appointments Allergies [...] Encounter Status:Closed by RAJEEV ZARATE on 01/10/23 [facility] Ambulatory Visit Summaryon 0 12-03-2022 Ambulatory Visit Summary LOYD ALFORD :1960 Visit Date:12/03/2022 Ambulatory Visit Instructions Your Diagnosis Prostate cancer BPH with urinary obstruction Tests Performed Urnls Dip Stick Auto w/o Microscopy POC 76216 Your Care Team Attending Physician - David CARNEY MD Primary Care Physician - MARIAELENA BAILEY CNP [...] Follow-Up Appointments Saturday 8:15 AM EDT With: ROMMEL AVINA, David Rangel Where: [facility] Patient Educationon 12-04-19 23 Patient Education Oncology Prostate Cancer The prostate [...] under a microscope. This is called the Albany score and the total score can range from 6?10, indicating how likely it is that the cancer will spread (metastasize) to other parts of the body. The higher the score, the greater the likelihood that the cancer will spread. ? Pawel 6 or lower: This indicates that the cancer cells look similar to normal prostate cells (well differentiated). ? Pawel 7: This indicates that the cancer cells look somewhat similar to normal prostate cells (moderately differentiated). ? Pawel 8, 9, or 10: This indicates that [...] external be (more content not included)... Normal [facility] Urology Office/Clinic Noteon 12-03-2022 Urology Office/Clinic Note Chief Complaint 1yr HPI Staff Former ADONIS pt. Here today for 1yr follow up [...] URL [facility] [address], [place] [address]- [id number] Additional Instructions: 1 yr w/ PSA Patient Education Prostate Cancer IGabriella, personally scribed for Dr. Carney on 12/03/2022 12:31:49. . Documentation recorded by the scribeGabriella, accurately reflects the services(s) I performed and [...] vaccine, inactivate (more content not included)... Normal [facility] Comment on above: Result Comment: Electronically Signed By : David CARNEY MD\.br\Date and Time Signed: 12/03/22 12:36 EDT\.br\Electronically Co-Signed By: Gabriella Wilks\.br\Date and Time Co-Signed: 12/03/22 12:32 EDT CNOVon 07-17-2022 CNOV Office Visit (RADTSA ) LOYD ALFORD ([id number]) 1960 M Date Time Provider Department 07/17/22 [...] by: Willy Reyes MD cc: Mariaelena Bailey, CLERK SPECIALIST (DrC) [address] [place] [address] Dr. Soto Portions of the above note extracted and edited from previous visit as well as active information included in the EMR. Referring Provider: Willy REYES [[id number]] Allergies As of Date: 07/17/2022 (No Known Allergies) Date Reviewed: 07/17/2022 Reviewed by: Елена Reynolds LPN - Fully Assessed Reason for Visit: Prostate Cancer [590] Primary Visit Diagnosis:Malignant neoplasm of prostate (HCC) [C61] Order(s):PSA/PROSTSPECAG DIAG [SQPSA] Order #: [id number] FUTURE Prescriptions as of 07/20/2022 - tamsulosin (FLOMAX) 0.4 mg Take 1 capsule by mouth once daily. - lisinopril (ZESTRIL, PRINIVIL) 10 mg tablet Take 10 mg by mouth once daily. - docosahexaenoic acid/epa (FISH OIL ORAL) Take by mouth. Problem List As Of Date 07/17/2022 Noted Resolved Prostate cancer (HCC) [C61] 07/18/2021 Visit Notes: >> Елена Reynolds LPN Tue Jul 17, 2022 2:49 PM Status: Signed AUA= 12 Disposition: Return in about 6 months (around 01/17/2023). Follow-up and Disposition History for Encounter Date Provider Department Center 07/17/2022 [id number] REYES Encounter Status:Closed by Willy REYES on 07/20/22 Normal [facility] PSA SerPl-mCncon 07-12-2022 Prostate specific Ag [Mass/Vol] 1.34 ng/mL Normal <2.60 [facility] Comment on above: Order Comment: Specimen Type: BLOOD SPEC IMEN Ordering Facility: [facility] Address: [address] [place] [address] Result Comment: Tota l PSA test methodology used is the Electrochemiluminescence Immunoassay by [employer]. Total PSA values by differing methodologies cannot be interchanged. Performed By: #### 2 857-1 #### [facility] CLIA [id number] [address] [place] [address] [place] CBC AUTO DIFFon 02-27-2022 BASO # 0.0 103/ul Normal 0.0-0.1 [facility] Comment on above: Performed By: #### CBC #### [facility] [address] [address] [address] Chapo Brewer Basophils/100 WBC (Bld) 0.6 % Normal 0.2-2.0 [facility] Comment on above: Performed By: #### CBC #### [facility] [address] [place] [address] Dr. Chapo Brewer EO # 0.3 103/ul Normal 0.0-0.7 [facility] Comment on above: Performed By: #### CBC #### [facility] [address] [place] [address] Dr. Chapo Brewer Eosinophils/100 WBC (Bld) 5.6 % Normal 0.9-7.0 [facility] Comment on above: Performed By: #### CBC #### [facility] [address] [place] [address] Dr. Chapo Brewer Erythrocyte distribution width (RBC) [Ratio] 12.8 % Normal 11.0-15.0 [facility] Comment on above: Performed By: #### CBC #### [facility] [address] [place] [address] Dr. Chapo Brewer Hematocrit (Bld) [Volume fraction] 45.5 % Normal 42.0-54.0 [facility] Comment on above: Performed By: #### CBC #### [facility] [address] [place] [address] Dr. Chapo Brewer Hemoglobin (Bld) [Mass/Vol] 14.6 g/dL Normal 14.0-18.0 [facility] Comment on above: Performed By: #### CBC #### [facility] [address] [place] [address] Dr. Chapo Brewer IG # 0.01 10e3/ul Normal 0.00-0.03 [facility] Comment on above: Performed By: #### CBC #### [facility] [address] [place] [address] Dr. Chapo Brewer IG % 0.2 % Normal 0.0-0.5 [facility] Comment on above: Performed By: #### CBC #### [facility] [address] [place] [address] Dr. Chapo Brewer LYMPH # 1.2 103/ul Normal 1.2-3.8 [facility] Comment on above: Performed By: #### CBC #### [facility] [address] [address] [address] Chapo Brewer Lymphocytes/100 WBC (Bld) 23.1 % Normal 20.5-60.0 [facility] Comment on above: Performed By: #### CBC #### [facility] [address] [place] [address] Dr. Chapo Brewer MANUAL DIFF REQ NO Normal [facility] Comment on above: Performed By: #### CBC #### [facility] [address] [address] [address] Chapo Brewer MCH (RBC) [Entitic mass] 30.5 pg Normal 25.9-34.0 [facility] Comment on above: Performed By: #### CBC #### [facility] [address] [place] [address] Dr. Chapo Brewer MCHC (RBC) [Mass/Vol] 32.1 g/dL Normal 29.9-35.2 [facility] Comment on above: Performed By: #### CBC #### [facility] [address] [place] [address] Dr. Chapo Brewer MCV (RBC) [Entitic vol] 95.0 fL Critically high 80.0-94.0 [facility] Comment on above: Performed By: #### CBC #### [facility] [address] [place] [address] Dr. Chapo Brewer MONO # 0.6 103/ul Normal 0.3-0.8 [facility] Comment on above: Performed By: #### CBC #### [facility] [address] [place] [address] Dr. Chapo Brewer Monocytes/100 WBC (Bld) 11.3 % Normal 1.7-12.0 [facility] Comment on above: Performed By: #### CBC #### [facility] [address] [place] [address] Dr. Chapo Brewer NEUT # 2.9 103/ul Normal 1.4-6.5 [facility] Comment on above: Performed By: #### CBC #### [facility] [address] [address] [address] Chapo Brewer Neutrophils/100 WBC (Bld) 59.2 % Normal 43.0-75.0 [facility] Comment on above: Performed By: #### CBC #### [facility] [address] [address] [address] Chapo Brewer Platelet mean volume (Bld) [Entitic vol] 9.4 fL Critically low 9.5-13.5 [facility] Comment on above: Performed By: #### CBC #### [facility] [address] [address] [address] Chapo Brewer PLT 217 103/ul Normal 150-450 [facility] Comment on above: Performed By: #### CBC #### [facility] [address] [place] [address] Dr. Chapo Brewer RBC 4.79 106/ul Normal 4.70-6.10 [facility] Comment on above: Performed By: #### CBC #### [facility] [address] [place] [address] Dr. Chapo Brewer WBC 5.0 103/ul Normal 4.0-11.0 [facility] Comment on above: Performed By: #### CBC #### [facility] [address] [place] [address] Dr. Chapo Brewer LIPID PROFILEon 02-27-2022 CHOL-HDL RATIO NORM SEE BELOW Normal [facility] Comment on above: Result Comment: 3.3 - 4.4 LOW RISK 4.4 - 7.1 AVERAGE RISK 7.1 - 11.0 MODERATE RISK >11.0 HIGH RISK Performed By: #### C MP, LIPID #### [facility] [address] [place] [address] Dr. Chapo Brewer Cholesterol [Mass/Vol] 195 mg/dL Normal <=200 [facility] Comment on above: Performed By: #### CMP, LIPID #### [facility] [address] [place] [address] Dr. Chapo Brewer Cholesterol in HDL [Mass/Vol] 75 mg/dL Critically high 40-60 [facility] Comment on above: Performed By: #### CMP, LIPID #### [facility] [address] [address] [address] Chapo Brewer Cholesterol in LDL [Mass/Vol] 102.6 mg/dL Normal [facility] Comment on above: Performed By: #### CMP, LIPID #### [facility] [address] [address] [address] Chapo Brewer Cholesterol.tot al/Cholesterol in HDL [Mass ratio] 2.6 {ratio} Normal [facility] Comment on above: Performed By: #### CMP, LIPID #### [facility] [address] [address] [address] Chapo Brewer HDL NORMAL > or = 60 mg/dl - LO W CARDIOVASCULAR RISK <40 mg/dl - HIGH CARDIOVASCULAR RISK Normal [facility] Comment on above: Performed By: #### CMP, LIPID #### [facility] [address] [place] [address] Dr. Chapo Brewer LDL CALC NORMAL SEE BELOW Normal [facility] Comment on above: Result Comment: <100 mg/dl OPTIMAL 100 - 129 mg/dl NEAR OR ABOVE OPTIMAL 130 - 159 mg/dl BORDERLINE HIGH 160 - 189 mg/dl HIGH >190 mg/dl VERY HIGH Performed By: #### C MP, LIPID #### [facility] [address] [place] [address] Dr. Chapo Brewer Triglyceride [Mass/Vol] 87 mg/dL Normal <=150 [facility] Comment on above: Performed By: #### CMP, LIPID #### [facility] [address] [place] [address] Dr. Chapo Brewer VLDL CALC 17.4 mg/dL Normal [facility] Comment on above: Performed By: #### CMP, LIPID #### [facility] [address] [address] [address] Chapo Brewer PROF 14(COMP METB)on 022 Albumin [Mass/Vol] 3.5 g/dL Normal 3.4-5.0 [facility] Comment on above: Performed By: #### CMP, LIPID #### [facility] [address] [place] [address] Dr. Chapo Brewer Albumin/Globuli n [Mass ratio] 0.9 {ratio} Normal [facility] Comment on above: Performed By: #### CMP, LIPID #### [facility] [address] [place] [address] Dr. Chapo Brewer ALP [Catalytic activity/Vol] 88 U/L Normal 46-116 [facility] Comment on above: Performed By: #### CMP, LIPID #### [facility] [address] [place] [address] Dr. Chapo Brewer ALT [Catalytic activity/Vol] 20 U/L Normal 16-63 [facility] Comment on above: Performed By: #### CMP, LIPID #### [facility] [address] [place] [address] Dr. Chapo Brewer Anion gap [Moles/Vol] 11.6 mmol/L Normal [facility] Comment on above: Performed By: #### CMP, LIPID #### [facility] [address] [place] [address] Dr. Chapo Brewer AST [Catalytic activity/Vol] 17 U/L Normal 15-37 [facility] Comment on above: Performed By: #### CMP, LIPID #### [facility] [address] [place] [address] Dr. Chapo Brewer Bilirubin [Mass/Vol] 0.7 mg/dL Normal 0.2-1.0 [facility] Comment on above: Performed By: #### CMP, LIPID #### [facility] [address] [place] [address] Dr. Chapo Brewer Calcium [Mass/Vol] 8.7 mg/dL Normal 8.5-10.1 [facility] Comment on above: Performed By: #### CMP, LIPID #### [facility] [address] [place] [address] Dr. Chapo Brewer Chloride [Moles/Vol] 104 mmol/L Normal 98-107 [facility] Comment on above: Performed By: #### CMP, LIPID #### [facility] [address] [place] [address] Dr. Chapo Brewer CO2 [Moles/Vol] 29.2 mmol/L Normal 21.0-32.0 [facility] Comment on above: Performed By: #### CMP, LIPID #### [facility] [address] [address] [address] Chapo Brewer Creatinine [Mass/Vol] 1.12 mg/dL Normal 0.70-1.30 [facility] Comment on above: Performed By: #### CMP, LIPID #### [facility] [address] [place] [address] Dr. Chapo Brewer EGFR-AF KOSOVAN >60 Normal >=60 [facility] Comment on above: Performed By: #### CMP, LIPID #### [facility] [address] [address] [address] Chapo Brewer EGFR-NON AF KOSOVAN >60 Normal >=60 [facility] Comment on above: Performed By: #### CMP, LIPID #### [facility] [address] [place] [address] Dr. Chapo Brewer Globulin (S) [Mass/Vol] 3.8 g/dL Normal [facility] Comment on above: Performed By: #### CMP, LIPID #### [facility] [address] [place] [address] Dr. Chapo Brewer Glucose [Mass/Vol] 92 mg/dL Normal 74-106 [facility] Comment on above: Performed By: #### CMP, LIPID #### [facility] [address] [place] [address] Dr. Chapo Brewer Potassium [Moles/Vol] 4.8 mmol/L Normal 3.5-5.1 [facility] Comment on above: Performed By: #### CMP, LIPID #### [facility] [address] [place] [address] Dr. Chapo Brewer Protein [Mass/Vol] 7.3 g/dL Normal 6.4-8.2 [facility] Comment on above: Performed By: #### CMP, LIPID #### [facility] [address] [place] [address] Dr. Chapo Brewer Sodium [Moles/Vol] 140 mmol/L Normal 136-145 [facility] Comment on above: Performed By: #### CMP, LIPID #### [facility] [address] [place], [place] [address] Dr. Chapo Brewer Urea nitrogen [Mass/Vol] 18.0 mg/dL Normal 7.0-18.0 [facility] Comment on above: Performed By: #### CMP, LIPID #### [facility] [address] [place], [place] [address] Dr. Chapo Brewer Urea nitrogen/Creati nine [Mass ratio] 16.1 mg/mg Normal [facility] Comment on above: Performed By: #### CMP, LIPID #### [facility] [address] [place], [place] [address] Dr. Chapo Spring 01-16-2022 CNOV Office Visit (RADTSA ) LISAFRANCISCOLOYD Humphreys ([id number]) 1960 M Date Time Provider Department 01/16/22 [...] lesions. ASSESSMENT/PLAN:Prostate adenocarcinoma, initial PSA 5.5, biopsy Albany score 3 + 3 = 6 (grade group 1), clinical stage T1c, N0, M0, stage I [cT1a-c/T2a, N0, M0, PSA <10, GG 1] status post prostate brachytherapy Doing well with stable and decreasing PSA. No significant problems related to prior treatment. Recommend continued follow-up with PSA in 6 months. Signed by: Willy Reyes MD cc: Mariaelena Bailey, CLERK SPECIALIST (DrC) [address] [place] [address] Dr. Soto Portions of the above note extracted and edited from previous visit as well as active information included in the EMR. Елена Reynolds LPN 01/16/2022 3:08 PM Signed AUA=12 Referring Provider: Willy REYES [[id number]] Allergies As of Date: 01/16/2022 (No Known Allergies) Date Reviewed: 01/16/2022 Reviewed by: Willy Reyes MD - Fully Assessed Reason for Visit: Prostate Cancer [590] Primary Visit Diagnosis:Malignant neoplasm of prostate (HCC) [C61] Order(s):PSA/PROSTSPECAG DIAG [SQPSA] Order #: [id number] FUTURE Prescriptions as of 01/16/2022 - tamsulosin (FLOMAX) 0.4 mg Take 1 capsule by mouth once daily. - lisinopril (ZESTRIL, PRINIVIL) 10 mg tablet Take 10 mg by mouth once daily. - docosahexaenoic acid/epa (FISH OIL ORAL) Take by mouth. Problem List As Of Date 01/16/2022 Noted Resolved Prostate cancer (HCC) [C61] 07/18/2021 Visit Notes: >> Елена Reynolds SHANE Tue Jan 16, 2022 2:50 PM Status: Signed AUA=12 Disposition: Return in about 6 months (around 07/16/2022). Follow-up and Disposition History for Encounter Date Provider Department Center 01/16/2022 [id number] [facility] Encounter Status:Closed by Willy REYES on 01/16/22 Normal [facility] PSA SerPl-mCncon 01-12-2022 Prostate specific Ag [Mass/Vol] 1.69 ng/mL Normal <2.60 [facility] Comment on above: Order Comment: Specimen Type: BLOOD SPEC IMEN Ordering Facility: [facility] Address: [address] [place] [address] Result Comment: Nasira sue PSA test methodology used is the Electrochemiluminescence Immunoassay by [employer]. Total PSA values by differing methodologies cannot be interchanged. Performed By: #### 2 [id number] #### [facility] CLIA [id number] [address] [place] [address] [place] CBC AUTO DIFFon 08-17-2021 BASO # 0.0 103/ul Normal 0.0-0.1 [facility] Comment on above: Performed By: #### CBC #### [facility] [address] [place] [address] Dr. Chapo Brewer Basophils/100 WBC (Bld) 0.5 % Normal 0.2-2.0 [facility] Comment on above: Performed By: #### CBC #### [facility] [address] [place] [address] Dr. Chapo Brewer EO # 0.3 103/ul Normal 0.0-0.7 [facility] Comment on above: Performed By: #### CBC #### [facility] [address] [place] [address] Dr. Chapo Brewer Eosinophils/100 WBC (Bld) 4.5 % Normal 0.9-7.0 [facility] Comment on above: Performed By: #### CBC #### [facility] [address] [place] [address] Dr. Chapo Brewer Erythrocyte distribution width (RBC) [Ratio] 12.4 % Normal 11.0-15.0 [facility] Comment on above: Performed By: #### CBC #### [facility] [address] [place] [address] Dr. Chapo Brewer Hematocrit (Bld) [Volume fraction] 44.7 % Normal 42.0-54.0 [facility] Comment on above: Performed By: #### CBC #### [facility] [address] [place] [address] Dr. Chapo Brewer Hemoglobin (Bld) [Mass/Vol] 14.6 g/dL Normal 14.0-18.0 [facility] Comment on above: Performed By: #### CBC #### [facility] [address] [place] [address] Dr. Chapo Brewer IG # 0.02 10e3/ul Normal 0.00-0.03 [facility] Comment on above: Performed By: #### CBC #### [facility] [address] [place] [address] Dr. Chapo Brewer IG % 0.3 % Normal 0.0-0.5 [facility] Comment on above: Performed By: #### CBC #### [facility] [address] [place] [address] Dr. Chapo Brewer LYMPH # 1.0 103/ul Critically low 1.2-3.8 [facility] Comment on above: Performed By: #### CBC #### [facility] [address] [place] [address] Dr. Chapo Brewer Lymphocytes/100 WBC (Bld) 17.2 % Critically low 20.5-60.0 [facility] Comment on above: Performed By: #### CBC #### [facility] [address] [place] [address] Dr. Chapo Brewer MANUAL DIFF REQ NO Normal [facility] Comment on above: Performed By: #### CBC #### [facility] [address] [place] [address] Dr. Chapo Brewer MCH (RBC) [Entitic mass] 31.3 pg Normal 25.9-34.0 [facility] Comment on above: Performed By: #### CBC #### [facility] [address] [place] [address] Dr. Chapo Brewer MCHC (RBC) [Mass/Vol] 32.7 g/dL Normal 29.9-35.2 [facility] Comment on above: Performed By: #### CBC #### [facility] [address] [place] [address] Dr. Chapo Brewer MCV (RBC) [Entitic vol] 95.7 fL Critically high 80.0-94.0 [facility] Comment on above: Performed By: #### CBC #### [facility] [address] [place] [address] Dr. Chapo Brewer MONO # 0.6 103/ul Normal 0.3-0.8 [facility] Comment on above: Performed By: #### CBC #### [facility] [address] [place] [address] Dr. Chapo Brewer Monocytes/100 WBC (Bld) 10.9 % Normal 1.7-12.0 [facility] Comment on above: Performed By: #### CBC #### [facility] [address] [address] [address] Chapo Brewer NEUT # 3.8 103/ul Normal 1.4-6.5 [facility] Comment on above: Performed By: #### CBC #### [facility] [address] [address] [address] Chapo Brewer Neutrophils/100 WBC (Bld) 66.6 % Normal 43.0-75.0 [facility] Comment on above: Performed By: #### CBC #### [facility] [address] [address] [address] Chapo Brewer Platelet mean volume (Bld) [Entitic vol] 9.2 fL Critically low 9.5-13.5 [facility] Comment on above: Performed By: #### CBC #### [facility] [address] [place] [address] Dr. Chapo Brewer PLT 227 103/ul Normal 150-450 [facility] Comment on above: Performed By: #### CBC #### [facility] [address] [address] [address] Chapo Brewer RBC 4.67 106/ul Critically low 4.70-6.10 [facility] Comment on above: Performed By: #### CBC #### [facility] [address] [place] [address] Dr. Chapo Brewer WBC 5.8 103/ul Normal 4.0-11.0 [facility] Comment on above: Performed By: #### CBC #### [facility] [address] [place] [address] Dr. Chapo Brewer PROTIMEon 08-17-2021 INR Coag (PPP) [Relative time] 0.97 {INR} Normal [facility] Comment on above: Performed By: #### PTT, PT #### [facility] [address] [place] [address] Dr. Chapo Brewer INR GUIDELINES SEE BELOW Normal [facility] Comment on above: Result Comment: DESIRED INR: 2.0 - 3.0 C ONDITIONS NOT LISTED BELOW 2.5 - 3.5 FOR PROSTHETIC HEART VALVE REPLACEMENT 2.5 - 3.5 RECURRENT THROMBOSIS Performed By: #### P TT, PT #### [facility] [address] [place] [address] Dr. Chapo Brewer PT Coag (PPP) [Time] 10.5 s Normal 9.0-11.6 [facility] Comment on above: Performed By: #### PTT, PT #### [facility] [address] [place] [address] Dr. Chapo Brewer PTTon 08-17-2021 aPTT Coag (Bld) [Time] 27.6 s Normal 22.3-36.2 [facility] Comment on above: Performed By: #### PTT, PT #### [facility] [address] [place] [address] Dr. Chapo Brewer CBC AUTO DIFFon 05-18-2021 BASO # 0.0 103/ul Normal 0.0-0.1 [facility] Comment on above: Performed By: #### CBC #### [facility] [address] [place] [address] Dr. Chapo Brewer Basophils/100 WBC (Bld) 0.6 % Normal 0.2-2.0 [facility] Comment on above: Performed By: #### CBC #### [facility] [address] [place] [address] Dr. Chapo Brewer EO # 0.4 103/ul Normal 0.0-0.7 [facility] Comment on above: Performed By: #### CBC #### [facility] [address] [place] [address] Dr. Chapo Brewer Eosinophils/100 WBC (Bld) 7.0 % Normal 0.9-7.0 [facility] Comment on above: Performed By: #### CBC #### [facility] [address] [place] [address] Dr. Chapo Brewer Erythrocyte distribution width (RBC) [Ratio] 12.4 % Normal 11.0-15.0 [facility] Comment on above: Performed By: #### CBC #### [facility] [address] [place] [address] Dr. Chapo Brewer Hematocrit (Bld) [Volume fraction] 47.4 % Normal 42.0-54.0 [facility] Comment on above: Performed By: #### CBC #### [facility] [address] [place] [address] Dr. Chapo Brewer Hemoglobin (Bld) [Mass/Vol] 15.4 g/dL Normal 14.0-18.0 [facility] Comment on above: Performed By: #### CBC #### [facility] [address] [place] [address] Dr. Chapo Brewer IG # 0.02 10e3/ul Normal 0.00-0.03 [facility] Comment on above: Performed By: #### CBC #### [facility] [address] [place] [address] Dr. Chapo Brewer IG % 0.4 % Normal 0.0-0.5 [facility] Comment on above: Performed By: #### CBC #### [facility] [address] [place] [address] Dr. Chapo Brewer LYMPH # 1.1 103/ul Critically low 1.2-3.8 [facility] Comment on above: Performed By: #### CBC #### [facility] [address] [place] [address] Dr. Chapo Brewer Lymphocytes/100 WBC (Bld) 21.5 % Normal 20.5-60.0 [facility] Comment on above: Performed By: #### CBC #### [facility] [address] [place] [address] Dr. Chapo Brewer MANUAL DIFF REQ NO Normal [facility] Comment on above: Performed By: #### CBC #### [facility] [address] [place] [address] Dr. Chapo Brewer MCH (RBC) [Entitic mass] 30.9 pg Normal 25.9-34.0 [facility] Comment on above: Performed By: #### CBC #### [facility] [address] [place] [address] Dr. Chapo Brewer MCHC (RBC) [Mass/Vol] 32.5 g/dL Normal 29.9-35.2 [facility] Comment on above: Performed By: #### CBC #### [facility] [address] [place] [address] Dr. Chapo Brewer MCV (RBC) [Entitic vol] 95.2 fL Critically high 80.0-94.0 [facility] Comment on above: Performed By: #### CBC #### [facility] [address] [place] [address] Dr. Chapo Brewer MONO # 0.7 103/ul Normal 0.3-0.8 [facility] Comment on above: Performed By: #### CBC #### [facility] [address] [place] [address] Dr. Chapo Brewer Monocytes/100 WBC (Bld) 13.7 % Critically high 1.7-12.0 [facility] Comment on above: Performed By: #### CBC #### [facility] [address] [place] [address] Dr. Chapo Brewer NEUT # 2.9 103/ul Normal 1.4-6.5 [facility] Comment on above: Performed By: #### CBC #### [facility] [address] [place] [address] Dr. Chapo Brewer Neutrophils/100 WBC (Bld) 56.8 % Normal 43.0-75.0 [facility] Comment on above: Performed By: #### CBC #### [facility] [address] [place] [address] Dr. Chapo Brewer Platelet mean volume (Bld) [Entitic vol] 9.8 fL Normal 9.5-13.5 [facility] Comment on above: Performed By: #### CBC #### [facility] [address] [place] [address] Dr. Chapo Brewer PLT 210 103/ul Normal 150-450 [facility] Comment on above: Performed By: #### CBC #### [facility] [address] [place] [address] Dr. Chapo Brewer RBC 4.98 106/ul Normal 4.70-6.10 [facility] Comment on above: Performed By: #### CBC #### [facility] [address] [place], [place] [address] Dr. Chapo Brewer WBC 5.1 103/ul Normal 4.0-11.0 [facility] Comment on above: Performed By: #### CBC #### [facility] [address] [place], [place] [address] Dr. Chapo Brewer Vital Signs Date Time Vital Sign Value Performing Clinician Facility 04-22-2023 09:00-0500 Body height 187.96 cm Meg Reynolds Other [facility] Other 04-22-2023 09:00-0500 Body mass index (BMI) [Ratio] 26.96 kg/m2 Meg Reynolds Other [facility] Other 04-22-2023 09:00-0500 Body temperature 98.5 [degF] Meg Reynolds Other [facility] Other 04-22-2023 09:00-0500 Body weight 95.26 kg Meg Reynolds Other [facility] Other 04-22-2023 09:00-0500 Diastolic blood pressure 92 mm[Hg] Meg Reynolds Other [facility] Other 04-22-2023 09:00-0500 Respiratory rate 18 /min Meg Reynolds Other [facility] Other 04-22-2023 09:00-0500 SaO2% (BldA) [Mass fraction] 98 % Meg Reynolds Other [facility] Other 04-22-2023 09:00-0500 Systolic blood pressure 143 mm[Hg] Meg Reynolds Other [facility] Other 12-03-2022 11:33-0400 Blood Pressure Location David CARNEY [facility] 12-03-2022 11:33-0400 Diastolic blood pressure 80 mm[Hg] David CARNEY [facility] 12-03-2022 11:33-0400 Heart rate 68 /min David CARNEY [facility] 12-03-2022 11:33-0400 Respiratory rate 16 /min David CARNEY [facility] 12-03-2022 11:33-0400 Systolic blood pressure 120 mm[Hg] David CARNEY [facility] 07-17-2022 14:48-0400 Body temperature 97.59 [degF] JOSELYN Reyes MD Work Phone: [facility] 07-17-2022 14:48-0400 Body weight 96.16 kg JOSELYN Reyes MD Work Phone: [facility] 07-17-2022 14:48-0400 Diastolic blood pressure 90 mm[Hg] JOSELYN Reyes MD Work Phone: [facility] 07-17-2022 14:48-0400 Heart rate 64 /min JOSELYN Reyes MD Work Phone: [facility] 07-17-2022 14:48-0400 Respiratory rate 16 /min JOSELYN Reyes MD Work Phone: [facility] 07-17-2022 14:48-0400 SaO2% (BldA) [Mass fraction] 97 % JOSELYN Reyes MD Work Phone: [facility] 07-17-2022 14:48-0400 Systolic blood pressure 135 mm[Hg] JOSELYN Reyes MD Work Phone: [facility] 11-21-2021 08:41-0400 Blood Pressure Location Derek Soto Jr. [facility] 11-21-2021 08:41-0400 Diastolic blood pressure 78 mm[Hg] Derek Soto Jr. [facility] 11-21-2021 08:41-0400 Heart rate 64 /min Derek Soto Jr. [facility] 11-21-2021 08:41-0400 Respiratory rate 16 /min Derek Soto Jr. [facility] 11-21-2021 08:41-0400 Systolic blood pressure 118 mm[Hg] Derek Soto Jr. [facility] Encounters Encounter Date Encounter Type Care Provider Facility Start: 12-06-2023 ambulatory David CARNEY [facility] ty:[facility] Start: 10-24-2023 End: 10-24-2023 ambulatory MARIAELENA AICHHOLZ Not Available Start: 04-22-2023 Office outpatient ne w 20 minutes Meg Reynolds [facility] [place] Start: 04-22-2023 End: 04-22-2023 [facility] Start: 04-16-2023 End: 04-16-2023 ambulatory MARIAELENA AICHHOLZ Not Available Start: 12-03-2022 End: 12-04-2022 ambulatory David CARNEY Facility:[facility] Start: 12-03-2022 End: 12-03-2022 Patient encounter procedure David CARNEY [facility] Start: 07-17-2022 End: 07-17-2022 ambulatory Willy REYES Facility:[facility] Start: 07-17-2022 End: 07-17-2022 Patient encounter procedure Willy Reyes MD Work Phone: [facility] Comment on above: Malignant neoplasm o f prostate (HCC) (Primary Dx) Start: 07-12-2022 End: 07-12-2022 ambulatory MARIAELENA BAILEY Facility:[facility] Start: 03-04-2022 Encounter for genera l adult medical examination without abnormal findings DAVID BAILEY [facility] Start: 02-27-2022 End: 02-28-2022 ambulatory DAVID IYERA RANDAL Facility:[facility] Start: 02-27-2022 End: 02-28-2022 Encounter for general adult medical examination without abnormal findings DAVID MARIAELENA RANDAL Facility:[facility] Start: 01-16-2022 End: 01-16-2022 ambulatory Willy REYES Facility:[facility] Start: 01-12-2022 End: 01-12-2022 ambulatory MARIAELENA BAILEY Facility:[facility] Start: 11-21-2021 End: 11-21-2021 Patient encounter procedure Derek Soto Jr. [facility] Start: 08-17-2021 End: 08-18-2021 ambulatory DAVID BABCOCK IDAJeffreyJUAN Facility:[facility] Start: 07-17-2021 End: 07-18-2021 ambulatory DAVID BABCOCK RANDAL Facility:[facility] Start: 05-18-2021 End: 05-19-2021 ambulatory CLERK SPECIALIST MARIAELENA RANDAL Facility:[facility] Start: 06-16-2020 End: 06-16-2020 Patient encounter procedure External Provider [facility] Start: 06-16-2020 Results Only External Provider Exter nal-NonCCF Procedures Date Procedure Procedure Detail Performing Clinician Start: 07-17-2021 PSA screening DAVID BAILEY Comment on above: Performed By: #### P SAD #### [facility] [address] [place] [address] Dr. Chapo Brewer Start: 08-31-2020 Brachytherapy implan t (physical object) Derek Soto Jr. Start: 06-16-2020 EXTERNAL LAB External P rovider Start: 05-19-2020 Transrectal biopsy o f prostate using ultrasound guidance Derek Soto Jr. Basal cell carcinoma of neck (disorder) David CARNEY Colonoscopy Derek Forrester Plan of Treatment Date Care Activity Detail Author Start: 07-13-2027 PROSTATE CANCER SCREENING DISCUSSION PROSTATE CANCER SCREENING DISCUSSION [facility] Start: 01-17-2023 End: 03-19-2023 Prostate specific Ag [Mass/volume] in Serum or Plasma PSA/PROSTSPECAG DIAG Lab Routine Malignant neoplasm of prostate (HCC) Expected: 01/17/2023, Expires: 03/19/2023 [facility] Work Phone: Comment on above: Expected: 01/17/2023 , Expires: 03/19/2023 Start: 05-06-2022 DEPRESSION ASSESSMENT DEPRESSION ASS ESSMENT [facility] Start: 01-04-2022 Influenza vaccination INFLUENZA (#1) [facility] Start: 05-11-2021 COVID-19 VACCINE (4 - Booster for Pfizer series) COVID-19 VACCINE (4 - Booster for Pfizer series) [facility] Start: 01-05-2020 Influenza vaccination INFLUENZA (#1) [facility] Start: 2015 PROSTATE CANCER SCREENING DISCUSSION PROSTATE CANCER SCREENING DISCUSSION [facility] Start: 2010 Screening for malign ant neoplasm of colon [facility] Start: 2010 SHINGRIX VACCINE (1 of 2) SHINGRIX VACCINE (1 of 2) [facility] Start: 2005 COLOGUARD (FIT-DNA) COLOGUARD (FIT-D NA) [facility] Start: 2005 Colonoscopy COLONOSCOPY [facility] Start: 2005 COLORECTAL CANCER SCREENING COLORECTAL CANCER SCREENING [facility] Start: [address] COLONOGRAPHY [facility] Start: 2005 DIABETES SCREEN DIABETES SCREEN [facility] Start: 2005 FECAL OCCULT BLOOD FECAL OCCULT BLOO D [facility] Start: 2005 SIGMOIDOSCOPY SIGMOIDOSCOPY [facility] Start: 1995 LIPID SCREEN LIPID SCREEN [facility] Start: 1979 Urine microalbumin profile DTAP,TDAP,TD (1 - Tdap) [facility] Start: 1978 HEPATITIS C SCREENING HEPATITIS C SC REENING [facility] Start: 1978 HIV SCREENING HIV SCREENING [facility] Start: 1972 Adult depression screening assessment DEPRESSION SCREENING [facility] Immunizations Immunization Date Immunization Notes Care Provider Fa cili 05-15-2021 influenza virus vaccine, unspecified formulation David CARNEY [facility] 05-15-2021 zoster vaccine recombinant David CARNEY [facility] 03-16-2021 SARS-CoV-2 (COVID-19 ) mRNA BNT-162b2 vax David CARNEY [facility] 08-13-2020 COVID-19 original vaccine, age 12+ yr, monovalent (PFIZER-BIONTECH - PURPLE TOP) JOSELYN Reyes MD Work Phone: [facility] 07-22-2020 COVID-19 original vaccine, age 12+ yr, monovalent (PFIZER-BIONTECH - PURPLE TOP) JOSELYN Reyes MD Work Phone: [facility] 02-28-2018 influenza virus vaccine, unspecified formulation David CARNEY [facility] 07-25-2015 influenza virus vaccine, unspecified formulation David CARNEY [facility] 07-25-2015 tetanus toxoid, reduced diphtheria toxoid, and acellular pertussis vaccine, adsorbed David CARNEY [facility] NEGATED: Highlighted row has not occurred!06-14-2020 influenza virus vaccine, unspecified formulation Derek Charles Khanna [facility] Payers Date Payer Category Payer Unknown [id number] 2023 Self-pay 2018 Unknown [employer] PPO [id number] 2018-Present PPO [id number] 2018 Unknown [employer] SS PPO [id number] 2018-Present [phone] [address] [place] [address] PPO [id number] 1960 Unknown [id number] 1960 Unknown [id number] 1960 Unknown [id number] 1960 Unknown [id number] 1960 Unknown [id number] 1960 Unknown [id number] 1960 Unknown [id number] 1960 Unknown [id number] 1959 Unknown [id number] Unknown [id number] Social History Date Type Detail Facility Tobacco smoking stat [facility] Unknown if ever smoked [facility] Start: 1960 Sex Assigned At Not on file [facility] Start: 11-21-2021 End: 12-03-2022 Tobacco smoking status Never smoked tobacco (finding) [facility] Sex Assigned At Male [facility] Start: 01-16-2022 Tobacco use and exposure Smokeless tobacco non-user [facility] Start: 07-17-2022 Alcohol intake Current drinke r of alcohol (finding) [facility] Start: 06-17-2020 Alcohol Comment couple times a week [facility] Tobacco smoking status Never [facility] Functional Status Date Assessment Result Facility 12-03-2022 Functional Status N/A [facility] 11-21-2021 Functional Status N/A [facility] Clinical Notes 11-21-2021 to 04-22-2023 Note Date [...] follow up with PCP if new/worsening symptoms. [facility] Other 07-31-2023 Hospital Discharge instructions Patient Education [...] under a microscope. This is called the Pawel score and the total score can range from 6 10, indicating how likely it is that the cancer will spread (metastasize) to other parts of the body. The higher the score, the greater thelikelihood that the cancer will spread. [place] 6 or lower: This indicates that the cancer cells look similar to normal prostate cells (well differentiated). Pawel 7: This indicates that the cancer cells look somewhat similar to normal prostate cells (moderately differentiated). Pawel 8, 9, or 10: This indicates that [...] stress of having cancer. General instructions Take [id number] and prescription medicines only as told by your health care provider. If you have to go to the hospital, notify your cancer specialist (oncologist). Keep all follow-up visits. This is important. Where to find more information [employer]: www.cancer.org [employer]: www.cancer.net National Cancer [place]: www.cancer.gov Contact a health care provider if: [...] provider. Document Revised: 07/19/2021 Document Reviewed: 07/19/2021 [employer] Patient Education 2022 [employer]. Follow Up Care 11/21/2021 08:58:33 With:ROMMEL AVINA, David Rangel, URL Address: [facility] [address], [place] [phone]- [phone] When: Unknown Comments:1 yr w/ PSA [facility] 03-14-2023 NoteHNO ID: [id number] Author: Willy Reyes MD Service: ? Author Type: Physician Type: Progress Notes Filed: 07/20/2022 9:46 AM Note Text: Radiation Oncology - Follow Up Note PATIENT NAME: Loyd Alford PATIENT DIAGNOSIS: Prostate adenocarcinoma, initial PSA 5.5, biopsy Albany score 3 + 3 = 6 (grade [...] by: Willy Reyes MD cc: Mariaelena Bailey, CLERK SPECIALIST (DrC) [address] [place] [address] Dr. Soto Portions of the above note extracted and edited from previous visit as well as active information included in the EMR.[facility] 07-17-2022 History of Present illness Narrative* Willy [...] by: Willy Reyes MD cc: Mariaelena Bailey, CLERK SPECIALIST ([facility]) [address] [place] [address] Dr. Soto Portions of the above note extracted and edited from previous visit as well as active information included in the EMR. documented in this encounterOhio[facility] Nurse Note* Елена Reynolds LPN - 07/17/2022 2:49 PM EDT AUA= 12 documented in this encounterOhiohealth [facility]09-13-2022 NoteHNO ID: [id number] Author: Willy Reyes MD Service: ? Author Type: Physician Type: Progress Notes Filed: 01/16/2022 3:08 PM Note Text: Radiation Oncology - Follow Up Note PATIENT NAME: Loyd Alford PATIENT DIAGNOSIS: Prostate adenocarcinoma, initial PSA 5.5, biopsy [place] score 3 + 3 = 6 (grade [...] by: Willy Reyes MD cc: Mariaelena Bailey, CLERK SPECIALIST ([facility]) [address] [place] [address] Dr. Soto Portions of the above note extracted and edited from previous visit as well as active information included in the EMR.[facility] 11-21-2021 Hospital Discharge instructions Patient Education 11/21/2021 [...] including vitamins, herbs, eye drops, creams, and qjej-ara-dbxviam medicines. This also includes: ?Medicines to assist [...] 05/25/2005 Document Revised: 04/04/2018 Document Reviewed: 01/27/2018 [employer] Patient Education 2020 [employer]. Follow Up Care 02/21/2021 09:05:23 With:Charles Khanna MD, ALONDRA Hong Address: [facility] [address], [place] [address]- When:Within 1 Year(s) Comments:w/. pvr [facility] evaluation + Plan note Future Appointments Appointment Date:11/27/2022 08:00:00 AM Scheduled Provider:Derek Soto Jr., MD Location:[facility] Appointment Type:URO Office Visit [facility] evaluation + Plan note Future Appointments Appointment Date:12/06/2023 08:15:00 AM Scheduled Provider:David CARNEY MD Location:[facility] Appointment Type:URO Office Visit Diagnostic Tests Pending * PSA Total 12/03/22 [facility] evalwayhva note* Diagnosis Malignant neoplasm of prostate (HCC)- Primary Malignant neoplasm of prostate documented in this encounter [facility] general Narrative - Reported* Type Description Date Medical History HTN (hypertension) Medical History BPH (benign prostatic hyperplasi a) Medical History Prostate cancer Surgical History radiatin see implant to prostat e mSchool Other Hospital course Narrative No data available for this section [facility] progress note No data available for this section [facility] Shustir Summary Purpose Family History No Family History [...] or prosecute any alcohol or drug abuse patient.[facility] HospitalIn the event this information is protected by the Federal Confidentiality of Alcohol and Drug Abuse Patient Records regulations: The Federal rules restrict any use of the information to criminally investigate or prosecute any alcohol or drug abuse patient.[facility] Care Team (unrecognized sect ion and content) Shovel Oiler Relationship Specialty Start Date End Date Mariaelena Bailey, CLERK SPECIALIST [address] [place] [address] PCP - General Family Medicine 06/15/20 (unrecognized sect ion and content) No Status Records FoundNo Status Records FoundNo Status Records FoundNo Status Records FoundNo Status Records Found INFORMATION SOURCE (unrecogn ized section and content) DATE CREATED AUTHOR 03/04/2022 [facility] DATE CREATED AUTHOR AUTHOR'S ORGANIZ ATION 01/11/2023 [facility] DATE CREATED AUTHOR AUTHOR'S ORGANIZ ATION 06/14/2023 [facility] DATE CREATED AUTHOR AUTHOR'S ORGANIZ ATION 07/27/2023 [facility] DATE CREATED AUTHOR AUTHOR'S ORGANIZ ATION 10/26/2023 [facility] dical Specialists EPIC Reason for Visit (unrecogniz ed section and [...] BE BASED ON THE PRIMARY CLINICAL RECORDS. [facility] [address]. provides no warranty or guarantee of the accuracy or completeness of information in this document.
[2023-11-28 10:55] LABS: Prostate Specific Antigen Dx 0.55 ng/mL (<=4.00)
== END 2023-11-28 07:06 | disposition home or self-care (01) ==
LOC: LAB 07:05
PROVIDERS: PCP Nurse Practitioner; Visit Provider Urology
DX: C61 Malignant neoplasm of prostate (principal)
CPT/HCPCS: 36415; 84153

== ENCOUNTER 2024-06-24 09:55 | Outpatient (OUT) | payer BC, SELFPAY ==
--- OUTSIDE RECORDS SUMMARY | 2024-06-24 10:05 | XMS_ITS | CCD ---
Author Organization [facility] Care Team Providers Care Conservation Enforcement Officer Name Role Phone Mariaelena Bailey Primary Care Provider [phone] MARIAELENA BAILEY Primary Care Physician AICHHOME, SWITCH HOUSE OPERATOR MARIAELENA Admitting Unavailable AICHHOLZ, SWITCH HOUSE OPERATOR MARIAELENA Primary Care Unavailable AICHHOLZ, SWITCH HOUSE OPERATOR MARIAELENA Consulting Unavailable AICHHOLZ, SWITCH HOUSE OPERATOR MARIAELENA Attending Unavailable AICHHOLZ, SWITCH HOUSE OPERATOR MARIAELENA Admitting Unavailable AICHHOLZ, SWITCH HOUSE OPERATOR MARIAELENA Primary Care Unavailable AICHHOLZ, SWITCH HOUSE OPERATOR MARIAELENA Consulting Unavailable AICHHOLZ, SWITCH HOUSE OPERATOR MARIAELENA Attending Unavailable AICHHOLZ, SWITCH HOUSE OPERATOR MARIAELENA Admitting Unavailable AICHHOLZ, SWITCH HOUSE OPERATOR MARIAELENA Primary Care Unavailable AICHHOLZ, SWITCH HOUSE OPERATOR MARIAELENA Consulting Unavailable AICHHOLZ, SWITCH HOUSE OPERATOR MARIAELENA Attending Unavailable AICHHOLZ, SWITCH HOUSE OPERATOR MARIAELENA Primary Care Unavailable DR TJ REYES Admitting Unavailable DR TJ REYES Consulting Unavailable DR TJ REYES Attending Unavailable Aichholz Ryann HRENANDEZa Renea Primary Care Provider [phone] Willy REYES Referring Unavailable Willy REYES Attending Unavailable AICHHOME, MARIAELENA RENEA Primary Care Unavailable AICHHOLOlive, MARIAELENA RENEA Primary Care Unavailable Willy REYES Referring Unavailable Willy REYES Attending Unavailable AICHHOLZ, MARIAELENA RENEA Primary Care Unavailable AICHHOLZ, MARIAELENA RENEA Primary Care Unavailable Willy REYES Referring Unavailable Reynolds, Meg Unavailable Reynolds, Meg Attending Unavailable Reynolds, Meg Admitting Unavailable David CARNEY Attending Unavailable David CARNEY Attending Unavailable Aichholz MUSIC CRITIC, Mariaelena Unavailable Tung AVINA, William Primary Care Provider Leo MUSIC CRITIC, Mariaelena Unavailable MARIAELENA BAILEY Attending Unavailable MARIAELENA BAILEY Attending Unavailable Medications Current Medications Medication Drug Class(es) Dates Sig (Normalized) Sig (Original) Diclofenac (1 source) Nonsteroidal Anti-inflammatory Drug Start: 04-22-2023 Voltaren 1 % apply to affected area Externally four times a day as needed for 7 days Apr, Active Fish Oils (3 sources) Start: 02-21-2021 take 1000 mg by mouth once daily Fish Oil 1,000 mg, Oral, Daily Start Date: 02/21/21 Status: Ordered lisinopril 20 mg oral tablet (10 sources) Angiotensin Converting Enzyme Inhibitor Start: 03-03-2024 End: 09-13-2024 take 1 tablet by mouth once daily lisinopril 20 MG tablet Indications: Primary hypertension (CMS/HCC) Take 1 tablet (20 mg) by mouth Daily 90 tablet 1 06/15/2024 09/13/2024 Active Start: 04-19-2020 take 1 tablet by kristen th once daily lisinopril 10 mg Tab 10 mg = 1 tab(s), Oral, Daily Start Date: 05/04/20 Status: Ordered take 1 tablet by kristen th once daily Lisinopril 20 MG TAKE 1 TABLET BY MOUTH EVERY DAY Oral for 90 Days Active Comment on above: Take 10 mg by mouth once daily. sildenafil 100 mg oral tablet (7 sources) Phosphodiesterase 5 Inhibitor Start: 07-31-2022 sildenafil (Viagra) 100 MG tablet TAKE 1 TABLET BY MOUTH 1 HOUR BEFORE SEXUAL ACTIVITY. 07/31/2022 Active Start: 02-21-2021 Viagra 100 mg Tab 100 mg = 1 tab(s), Oral, As Directed, 1 hour before sexual activity., # 30 tab(s), Refills(s) 2, [facility]: [facility], 188, cm, 02/21/21 8:28:00 EDT, Height/Length Dosing, 95.1, kg, 02/21/21 8:28:00 EDT, Weight Dosing Start Date: 02/21/21 Status: Ordered tamsulosin hydrochloride 0.4 mg oral capsule (9 sources) alpha-Adrenergic Aden Start: 12-06-2023 take 1 capsule by mouth twice daily tamsulosin 0.4 mg Cap 0.4 mg = 1 cap(s), Oral, BID, # 60 cap(s), Refills(s) 11, Pharmacy: [facility], 188, cm, 12/06/23 8:26:00 EDT, Height/Length Dosing, 92.4, kg, 12/06/23 8:26:00 EDT, Weight Dosing Start Date: 12/06/23 Status: Ordered Start: 09-10-2022 take 1 capsule by [facility] every twenty-four hours in the morning tamsulosin (Flomax) 0.4 MG 24 hr capsule Take 0.4 mg by mouth in the morning. 09/10/2022 Active Start: 01-17-2021 End: 11-28-2023 take 1 capsule by mouth once daily tamsulosin 0.4 mg C ap 0.4 mg = 1 cap(s), Oral, Daily, X 90 day(s), # 90 cap(s), Refills(s) 3, [facility]: [id number], 188, cm, 12/03/22 11:35:00 EDT, Height/Length Dosing, 94, kg, 12/03/22 11:35:00 EDT, Weight Dosing Start Date: 12/03/22 Stop Date: 11/28/23 Status: Ordered Comment on above: Take 1 capsule by [facility] once daily. Completed/Discontinued Medications Medication Drug Class(es) Dates Sig (Normalized) Sig (Original) docosahexaenoic acid/epa (FISH OIL ORAL) (1 source) docosahexaenoic acid/epa (FISH OIL ORAL) Take by mouth. 0 Active Comment on above: Take by mouth. Toradol 30 mg/ml (1 source) Start: 04-22-2023 Toradol 30 mg/ml Apr, 60 mg Problems Active Problems Problem Classification Problem Date Documented Da te Episodic/Chronic Cancer of prostate (17 sources) Malignant neoplasm of prostate; Translations: [Malignant tumor of prostate] Onset: 07-17-2021 Chronic Cancer of prostate (6 sources) Personal history of malignant neoplasm of prostate; Translations: [History of malignant neoplasm of prostate] Onset: 12-06-2023 Episodic Essential hypertension (10 sources) Hypertensive disorder; Translations: [Essential (primary) hypertension] Onset: 04-11-2023 2020 Chronic Hyperplasia of prostate (15 sources) Benign prostatic hypertrophy with outflow obstruction; Translations: [Benign prostatic hyperplasia with lower urinary tract symptoms] Onset: 11-21-2021 Chronic Other diseases of kidney and ureters (1 source) Urinary tract obstruction; Translations: [Other obstructive and reflux uropathy] Onset: 11-21-2021 Episodic Other male genital disorders (9 sources) Erectile dysfunction following prostate brachytherapy; Translations: [Erectile dysfunction following radiation therapy] Onset: 04-11-2023 02-21-2021 Chronic Other male genital disorders (2 sources) Male erectile dysfunction, unspecified; Translations: [Erectile dysfunction] Onset: 12-06-2023 Chronic Other non-traumatic joint disorders (1 source) Pain in left ankle and joints of left foot Episodic Other screening for suspected conditions (not mental disorders or infectious disease) (7 sources) Raised prostate specific antigen; Translations: [Other specified abnormal findings of blood chemistry] Onset: 08-17-2021 05-10-2020 Episodic Residual codes; unclassified (3 sources) Family history of prostate cancer 06-02-2020 Episodic Sprains and strains (1 source) Sprain of unspecified ligament of left ankle, initial encounter Episodic Unclassified (3 sources) Asymptomatic microscopic hematuria 02-21-2021 Unclassified (3 sources) Finding of sensation of bladder 02-21-2021 Unclassified (1 source) Pain in left ankle and joints of left foot; Translations: [Pain in left ankle and joints of left foot] Onset: 04-22-2023 Past or Other Problems Problem Classification Problem Date Documented Da te Episodic/Chronic Coagulation and hemorrhagic disorders (1 source) Spontaneous ecchymoses; Translations: [SPONTANEOUS ECCHYMOSES] Onset: 08-23-2021 Episodic Genitourinary symptoms and ill-defined conditions (20 sources) Dysuria; Translations: [Loyd hematuria] Onset: 04-11-2023 Resolved: 04-22-2024 09-20-2020 Episodic Other male genital disorders (7 sources) Hemospermia; Translations: [Hematospermia] Onset: 04-11-2023 05-10-2020 Episodic Other nutritional; endocrine; and metabolic disorders (6 sources) Body mass index 25-29 - overweight; Translations: [Overweight] Onset: 04-16-2023 04-16-2023 Episodic Results Test Name Value Interpretation Reference Range Facility Ambulatory Visit Summaryon 0 12-06-2023 Ambulatory Visit Summary Ambulatory Visit Summary LOYD ALFORD :1960 Visit Date:12/06/2023 Ambulatory Visit Instructions Your Diagnosis History of prostate cancer BPH with urinary obstruction Erectile dysfunction Your Care Team Attending Physician - David CARNEY MD Primary Care Physician - MARIAELENA BAILEY CNP This Is Your Medications List sildenafil (Viagra 100 mg Tab) tamsulosin (tamsulosin 0.4 mg Cap) Contact prescribing physician if questions or concerns lisinopril (lisinopril 10 mg Tab) omega-3 polyunsaturated fatty acids (Fish Oil) Procedures Performed Brachytherapy implant (08/31/2020), Transrectal biopsy of prostate using ultrasound (US) guidance (05/19/2020), Basal cell carcinoma of neck, Colonoscopy. Discharge Vitals Temperature (Temporal Artery) 37 ?C Heart Rate (Peripheral) 79 Respiratory Rate 16 Blood Pressure 134/88 Height 188 cm Height 74 in Weight 92.4 kg Weight 203.28 lb BMI 26.14 What to do next Scheduled Follow-Up Appointments Saturday 8:00 AM EDT With: David CARNEY MD Where: [facility] [address] [address]- You Need to Schedule the Following Appointments Follow Up with David CARNEY MD, URL When: Where: [address] [place] [address]- Medications What How Much When Instructions Changed tamsulosin (tamsulosin 0.4 mg Cap) 1 Capsules By Mouth 2 times a day Pickup at [facility] Unchanged sildenafil (Viagra 100 mg Tab) 1 Tablets By Mouth As Directed Take 1 tab PO 60 mins prior to sexual activity- do not exceed 100mg in 24hrs Unchanged lisinopril (lisinopril 10 mg Tab) 1 Tablets By Mouth Every day Contact prescribing physician if questions or concerns Unchanged omega-3 polyunsaturated fatty acids (Fish Oil) 1,000 Milligram By Mouth Every day Contact prescribing physician if questions or concerns Pharmacy Information [facility]: [address] [place], [place] [id number] [phone] Allergies No Known Allergies Problems Ongoing - Any problem that you are currently receiving treatment for. Asymptomatic microscopic hematuria Blood in semen BPH with urinary obstruction BPH without urinary obstruction Dysuria Elevated PSA Erectile dysfunction Erectile dysfunction following interstitial seed therapy Family history of prostate cancer Feeling of incomplete bladder emptying Frequency of urination Gross hematuria History of prostate cancer Hypertension Nocturia Prostate cancer Patient Survey You may receive a survey via text or e-mail asking about your office visit. Please share your experience with us by completing your survey. We appreciate your feedback and thank you for choosing us for your care. Education Materials Benign Prostatic Hyperplasia Benign prostatic hyperplasia (BPH) is an enlarged prostate gland that is caused by the normal aging process. The prostate may get bigger as a man gets older. The condition is not caused by cancer. The prostate is a walnut-sized gland that is involved in the production of semen. It is located in front of the rectum and below the bladder. The bladder stores urine. The urethra carries stored urine out of the body. An enlarged prostate can press on the urethra. This can make it harder to pass urine. The buildup of urine in the bladder can cause infection. Back pressure and infection may progress to bladder damage and kidney (renal) failure. What are the causes? This condition is part of the normal aging process. However, not all men develop problems from this condition. If the prostate enlarges away from the urethra, urine flow will not be blocked. If it enlarges toward the urethra and compresses it, there will be problems passing urine. What increases the risk? This condition is more likely to develop in men older than 50 years. What are the signs or symptoms? Symptoms of this condition include: ? Getting up often during the night to urinate. ? Needing to urinate frequently during the day. ? Difficulty starting urine flow. ? Decrease in size and strength of your urine stream. ? Leaking (dribbling) after urinating. ? Inability to pass urine. This needs immediate treatment. ? Inability to completely empty your bladder. ? Pain when you pass urine. This is more common if there is also an infection. ? Urinary tract infection (UTI). How is this diagnosed? This condition is diagnosed based on your medical history, a physical exam, and your symptoms. Tests will also be done, such as: ? A post-void bladder scan. This measures any amount of urine that may remain in your bladder after you finish urinating. ? A digital rectal exam. In a rectal exam, your health care provider checks your prostate by putting a lubricated, gloved finger into your rectum to feel the (more content not included)... Normal [facility] Office/Clinic Noteon 12-06-2023 Urology Office/Clinic Note Urology Office/Clinic Note Chief Complaint prostate cancer HPI Staff 1yr PSA DX: Prostate Cancer & BPH S/p Brachytherapy 08/31/2020 *Tamsulosin 0.4mg qd & Sildenafil 100mg prn therapy. Pt states that he is taking the Tamsulosin 1x every day and a half to 2 days Pt no longer following Dr Reyes. PSA 07/24/23- 0.91 11/28/23- 0.55 Dysuria: a little at start of urination Incomplete bladder emptying: no Hematuria: no Frequency: no Urgency: no Nocturia: 3x Stream: intermittency, no straining Leaking: rare Post void dripping: yes Wearing pads/ Depends: no Urge incontinence: no Stress incontinence: no Incontinence without Sensory Awareness: no Abdominal pain: no Flank pain: no Sexual complaints: no History of Present Illness Tests reviewed: reviewed UA & PSA. I have reviewed the previous health record information and history for this patient from Dr. Carney. I have reviewed and verified the staff HPI to be accurate for this encounter. There have been no associated fever, chills, flank pain, or blood in the urine. Denies any urinary infections since last encounter. Review of Systems PHQ Score Initial Depression Screen Score: 0 SCORE ROS - Provider Constitutional: denies weight loss, denies hot flashes. Eyes: denies eye problems. Gastrointestinal: denies nausea, denies vomiting. Cardiovascular: denies chest pain or angina. Integumentary: no dryness Musculoskeletal: denies musculoskeletal symptoms. ENMT: denies otolaryngeal symptoms. Respiratory: no shortness of breath. Heme/Lymph: denies easy bleeding tendency, denies easy bruising tendency. Psychiatric: no confusion, no anxiety. Genitourinary: See HPI. Physical Exam Vitals & Measurements T: 37 ?C(Temporal Artery) HR: 79(Peripheral) RR: 16 BP: 134/88 HT: 74 in HT: 188 cm WT: 92.4 kg WT: 203.28 lb BMI: 26.14 General Appearance: alert, no distress, well nourished, well developed male. Assessment/Plan Prior Dr. Soto pt. 1. History of prostate cancer (Z85.46: Personal history of malignant neoplasm of prostate) PSA: 07/17/21 - 1.75 01/12/22 - 1.69 07/12/22 - 1.34 07/24/23 - 0.91 11/28/23 - 0.55 [place] 6 (3+3) with 4 HGPINs. Brachytherapy 08/31/2020 [1] No longer following with Dr. Reyes. PSA stable. Lowest it has been in the last 2 years. Will cont to monitor PSA. -PSA in 12 mos 2. BPH with urinary obstruction (N40.1: Benign prostatic hyperplasia with lower urinary tract symptoms) UA today neg. Taking Flomax. Prescribed qd however pt has been taking once every two days. Does notice worsening sx by the second day. C/o hesitancy and mild dribbling. Nocturia 3x. Occasionally will drink 1-2 beers at night time. Reports he will roll over on his stomach and has the urge to void. Advised pt to start taking Flomax daily and to start taking it at night to see if that improves nocturia. Pt can trial bid if he chooses. -Begin taking Flomax daily at night, can increase to bid -Script sent for bid today due to pt needing a refill, can call to change if he does not wish to take bid -Limit fluids 2 hrs prior to bedtime 3. Erectile dysfunction (N52.9: Male erectile dysfunction, unspecified) Taking Sildenafil 100mg prn. Shares that sometimes he does not need it. Works well when he does take it. He wishes to cont current med management w/o changes. -Cont Sildenafil Follow-up With When Contact Information NIRU AVINA, David Rangel, URL [address] [place] [address]- Additional Instructions: 1 year w/ PSA Patient Education Benign Prostatic Hyperplasia I, Karen Locke, personally scribed for Dr. Carney on 12/06/2023 08:38:57. . Documentation recorded by the scribe, Karen Locke, accurately reflects the services(s) I performed and decisions made by me. Authenticated by Dr. Carney on 12/06/2023 08:42:07. Problem List/Past Medical History Ongoing Asymptomatic microscopic hematuria Blood in semen BPH with urinary obstruction BPH without urinary obstruction Dysuria Elevated PSA Erectile dysfunction Erectile dysfunction following interstitial seed therapy Family history of prostate cancer Feeling of incomplete bladder emptying Frequency of urination Gross hematuria History of prostate cancer Hypertension Nocturia Prostate cancer Historical No qualifying data Procedure/Surgical History Brachytherapy implant (08/31/2020), Transrectal biopsy of prostate using ultrasound (US) guidance (05/19/2020), Basal cell carcinoma of neck, Colonoscopy. Medications Fish Oil, 1000 mg, Oral, Daily lisinopril 10 mg Tab, 10 mg= 1 tab(s), Oral, Daily tamsulosin 0.4 mg Cap, 0.4 mg= 1 cap(s) Viagra 100 mg Tab, 100 mg= 1 tab(s), Oral, As Directed, 5 refills Allergies No Known Allergies Social History Alcohol - Low Risk, 05/10/2020 Substance Abuse - No Risk, 02/21/2021 Tobacco - No Risk, 02/21/2021 Never (more content not included)... [facility] Comment on above: Result Comment: Electronically Signed By : David CARNEY MD\.br\Date and Time Signed: 12/06/23 08:42 EDT\.br\Electronically Co-Signed By: Karen Locke\.br\Date and Time Co-Signed: 12/06/23 08:39 EDT\.br\Electronically Co-Signed By: Karen Locke\.br\Date and Time Co-Signed: 12/06/23 08:40 EDT Lab Report[facility] 07-25-2023 Lab Reports [id number] [facility] XR ankle LT min 3V*on 2022 XR ankle LT min 3V* [facility] [employer] Other XR ankle LT min 3V* [facility] [employer] Other XR ankle LT min 3V* [address] [employer] Other XR ankle LT min 3V* Sheyla LAUREN [address] [employer] Other XR ankle LT min 3V* XRay Report [employer] Other XR ankle LT min 3V* Signed [employer] Other XR ankle LT min 3V* Patient: Loyd Alford MR#: [id number] [employer] Other XR ankle LT min 3V* : 1960 Acct:[id number] [employer] Other XR ankle LT min 3V* Age/Sex: 62 / M ADM Date: 04/22/23 [employer] Other XR ankle LT min 3V* Loc: XDUCLY Room: Type: REG CLI [employer] Other XR ankle LT min 3V* Attending Dr: Meg Oakes [employer] Other XR ankle LT min 3V* Copies to: Meg Reynolds NP [employer] Other XR ankle LT min 3V* Ordering Provider: Meg Reynolds NP [employer] Other XR ankle LT min 3V* Date of Service: 04/22/23 [employer] Other XR ankle LT min 3V* XR/XR ankle LT min 3V*: M25.572 [employer] Other XR ankle LT min 3V* 3 views left ankle plain film [employer] Other XR ankle LT min 3V* COMPARISON: None [employer] Other XR ankle LT min 3V* HISTORY: Left ankle pain and swelling for 2 days. [employer] Other XR ankle LT min 3V* ACUTE FINDINGS: None [employer] Other XR ankle LT min 3V* DEGENERATIVE CHANGE: Minor marginal spurring. Tana deformity which may be incidental. Chronic [employer] Other XR ankle LT min 3V* bony densities of the superior portion of the talar head. Adjacent soft tissue prominence. [employer] Other XR ankle LT min 3V* SOFT TISSUE FINDINGS: Diffuse soft tissue prominence [employer] Other XR ankle LT min 3V* JOINT EFFUSION: None [employer] Other XR ankle LT min 3V* POSTOP CHANGES: None [employer] Other XR ankle LT min 3V* BONE MINERALIZATION: Adequate [employer] Other XR ankle LT min 3V* XR/XR ankle LT min 3V* [employer] Other XR ankle LT min 3V* IMPRESSION: Degenerative change. Soft tissue prominence [employer] Other XR ankle LT min 3V* Impression dictated by: Chao Wallace M.D.04/22/2023 9:57 AM [employer] Other XR ankle LT min 3V* Dictation Location: [place] [address] [employer] Other XR ankle LT min 3V* Transcribed By: [facility] 04/22/23 0957 [employer] Other XR ankle LT min 3V* Dictated By: Chao Wallace DO 04/22/23 09 [employer] Other XR ankle LT min 3V* Signed By: [employer] Other XR ankle LT min 3V* 04/22/23 0957 [employer] Other XR ankle LT min 3V* [facility] [place] [address] [place] [address] XRay Report Signed Patient: Loyd Alford MR#: [id number] : 1960 Acct:[id number] Age/Sex: 62 / M ADM Date: 04/22/23 Loc: XDUC Room: Type: [facility] Attending Dr: Meg Reynolds MUSIC CRITIC Copies to: Meg Reynolds NP Ordering Provider: [...] Chao Wallace M.D.04/22/2023 9:57 AM Dictation Location: [facility]12 Transcribed By: [facility] 04/22/23956 Dictated By: Chao Wallace DO 04/22/23 0954 Signed By: 04/22/23 0957 [facility] RAO Telephone (JEBA) LOYD ALFORD ([id number]) 1960 M Date Time Provider Department 01/10/23 Willy REYES During your visit today, we recorded the following information about you: Rajeev Zarate, RN 01/10/2023 10:15 AM Signed Pt called in [...] Encounter Status:Closed by RAJEEV ZARATE on 01/10/23 [facility] CNOVon 07-17-2022 CNOV Office Visit (RADTSA ) LOYD ALFORD ([id number]) 1960 M Date Time Provider Department 07/17/22 [...] by: Willy Reyes MD cc: Mariaelena Bailey, SWITCH HOUSE OPERATOR (DrC) [address] [place] [address] Dr. Soto Portions of the above note extracted and edited from previous visit as well as active information included in the EMR. Referring Provider: Willy REYES [[id number]] Allergies As of Date: 07/17/2022 (No Known Allergies) Date Reviewed: 07/17/2022 Reviewed by: Елена Reynolds LPN - Fully Assessed Reason for Visit: Prostate Cancer [590] Primary Visit Diagnosis:Malignant neoplasm of prostate (HCC) [C61] Order(s):PSA/PROSTSPECAG DIAG [SQPSA] Order #: [id number] FUTURE Prescriptions as of 07/20/2022 - tamsulosin (FLOMAX) 0.4 mg Take 1 capsule by mouth once daily. - lisinopril (ZESTRIL, PRINIVIL) 10 mg tablet Take 10 mg by mouth once daily. - docosahexaenoic acid/epa (FISH OIL ORAL) Take by mouth. Problem List As Of Date 07/17/2022 Noted Resolved Prostate cancer (HCC) [C61] 07/18/2021 Visit Notes: >> Елена Reynolds LPN SatJul 17, 2022 2:49 PM Status: Signed AUA= 12 Disposition: Return in about 6 months (around 01/17/2023). Follow-up and Disposition History for Encounter Date Provider Department Center 07/17/2022 [id number] REYES MAHESH [facility]YN[facility] Encounter Status:Closed by Willy REYES on 07/20/22 Normal [facility] PSA SerPl-mCncon 07-12-2022 Prostate specific Ag [Mass/Vol] 1.34 ng/mL Normal <2.60 [facility] Comment on above: Order Comment: Specimen Type: BLOOD SPEC IMEN Ordering Facility: [facility] Address: [address] [place] [address] Result Comment: Tota l PSA test methodology used is the Electrochemiluminescence Immunoassay by Sarah [employer]. Total PSA values by differing methodologies cannot be interchanged. Performed By: #### 2 [id number] #### [facility] CLIA [id number] [address] [place] [address] [place] CBC AUTO DIFFon 02-27-2022 BASO # 0.0 103/ul Normal 0.0-0.1 [facility] Comment on above: Performed By: #### CBC #### [facility] [address] [address] [address] Chapo Brewer Basophils/100 WBC (Bld) 0.6 % Normal 0.2-2.0 [facility] Comment on above: Performed By: #### CBC #### [facility] [address] [address] [address] Chapo Brewer EO # 0.3 103/ul Normal 0.0-0.7 [facility] Comment on above: Performed By: #### CBC #### [facility] [address] [address] [address] Chapo Brewer Eosinophils/100 WBC (Bld) 5.6 % Normal 0.9-7.0 [facility] Comment on above: Performed By: #### CBC #### [facility] [address] [address] [address] Chapo Brewer Erythrocyte distribution width (RBC) [Ratio] 12.8 % Normal 11.0-15.0 [facility] Comment on above: Performed By: #### CBC #### [facility] [address] [place] [address] Dr. Chapo Brewer Hematocrit (Bld) [Volume fraction] 45.5 % Normal 42.0-54.0 [facility] Comment on above: Performed By: #### CBC #### [facility] [address] [place] [address] Dr. Chapo Brewer Hemoglobin (Bld) [Mass/Vol] 14.6 g/dL Normal 14.0-18.0 [facility] Comment on above: Performed By: #### CBC #### [facility] [address] [place] [address] Dr. Chapo Brewer IG # 0.01 10e3/ul Normal 0.00-0.03 [facility] Comment on above: Performed By: #### CBC #### [facility] [address] [place] [address] Dr. Chapo Brewer IG % 0.2 % Normal 0.0-0.5 [facility] Comment on above: Performed By: #### CBC #### [facility] [address] [place] [address] Dr. Chapo Brewer LYMPH # 1.2 103/ul Normal 1.2-3.8 [facility] Comment on above: Performed By: #### CBC #### [facility] [address] [place] [address] Dr. Chapo Brewer Lymphocytes/100 WBC (Bld) 23.1 % Normal 20.5-60.0 [facility] Comment on above: Performed By: #### CBC #### [facility] [address] [place] [address] Dr. Chapo Brewer MANUAL DIFF REQ NO Normal [facility] Comment on above: Performed By: #### CBC #### [facility] [address] [place] [address] Dr. Chapo Brewer MCH (RBC) [Entitic mass] 30.5 pg Normal 25.9-34.0 [facility] Comment on above: Performed By: #### CBC #### [facility] [address] [place] [address] Dr. Chapo Brewer MCHC (RBC) [Mass/Vol] 32.1 g/dL Normal 29.9-35.2 [facility] Comment on above: Performed By: #### CBC #### [facility] [address] [place] [address] Dr. Chapo Brewer MCV (RBC) [Entitic vol] 95.0 fL Critically high 80.0-94.0 [facility] Comment on above: Performed By: #### CBC #### [facility] [address] [place] [address] Dr. Chapo Brewer MONO # 0.6 103/ul Normal 0.3-0.8 [facility] Comment on above: Performed By: #### CBC #### [facility] [address] [place] [address] Dr. Chapo Brewer Monocytes/100 WBC (Bld) 11.3 % Normal 1.7-12.0 [facility] Comment on above: Performed By: #### CBC #### [facility] [address] [place] [address] Dr. Chapo Brewer NEUT # 2.9 103/ul Normal 1.4-6.5 [facility] Comment on above: Performed By: #### CBC #### [facility] [address] [place] [address] Dr. Chapo Brewer Neutrophils/100 WBC (Bld) 59.2 % Normal 43.0-75.0 [facility] Comment on above: Performed By: #### CBC #### [facility] [address] [place] [address] Dr. Chapo Brewer Platelet mean volume (Bld) [Entitic vol] 9.4 fL Critically low 9.5-13.5 [facility] Comment on above: Performed By: #### CBC #### [facility] [address] [place] [address] Dr. Chapo Brewer PLT 217 103/ul Normal 150-450 [facility] Comment on above: Performed By: #### CBC #### [facility] [address] [place] [address] Dr. Cahpo Brewer RBC 4.79 106/ul Normal 4.70-6.10 [facility] Comment on above: Performed By: #### CBC #### [facility] [address] [address] [address] Chapo Brewer WBC 5.0 103/ul Normal 4.0-11.0 [facility] Comment on above: Performed By: #### CBC #### [facility] [address] [address] [address] Chapo Brewer LIPID PROFILEon 02-27-2022 CHOL-HDL RATIO NORM SEE BELOW Normal [facility] Comment on above: Result Comment: 3.3 - 4.4 LOW RISK 4.4 - 7.1 AVERAGE RISK 7.1 - 11.0 MODERATE RISK >11.0 HIGH RISK Performed By: #### C MP, LIPID #### [facility] [address] [place] [address] Dr. Chapo Brewer Cholesterol [Mass/Vol] 195 mg/dL Normal <=200 [facility] Comment on above: Performed By: #### CMP, LIPID #### [facility] [address] [place] [address] Dr. Chapo Brewer Cholesterol in HDL [Mass/Vol] 75 mg/dL Critically high 40-60 [facility] Comment on above: Performed By: #### CMP, LIPID #### [facility] [address] [place] [address] Dr. Chapo Brewer Cholesterol in LDL [Mass/Vol] 102.6 mg/dL Normal [facility] Comment on above: Performed By: #### CMP, LIPID #### [facility] [address] [place] [address] Dr. Chapo Brewer Cholesterol.tot al/Cholesterol in HDL [Mass ratio] 2.6 {ratio} Normal [facility] Comment on above: Performed By: #### CMP, LIPID #### [facility] [address] [place] [address] Dr. Chapo Brewer HDL NORMAL > or = 60 mg/dl - LO W CARDIOVASCULAR RISK <40 mg/dl - HIGH CARDIOVASCULAR RISK Normal [facility] Comment on above: Performed By: #### CMP, LIPID #### [facility] [address] [place] [address] Dr. Chapo rBewer LDL CALC NORMAL SEE BELOW Normal [facility] Comment on above: Result Comment: <100 mg/dl OPTIMAL 100 - 129 mg/dl NEAR OR ABOVE OPTIMAL 130 - 159 mg/dl BORDERLINE HIGH 160 - 189 mg/dl HIGH >190 mg/dl VERY HIGH Performed By: #### C MP, LIPID #### [facility] [address] [address] [address] Chapo Brewer Triglyceride [Mass/Vol] 87 mg/dL Normal <=150 [facility] Comment on above: Performed By: #### CMP, LIPID #### [facility] [address] [address] [address] Chapo Brewer VLDL CALC 17.4 mg/dL Normal [facility] Comment on above: Performed By: #### CMP, LIPID #### [facility] [address] [place] [address] Dr. Chapo Brewer PROF 14(COMP METB)on 022 Albumin [Mass/Vol] 3.5 g/dL Normal 3.4-5.0 [facility] Comment on above: Performed By: #### CMP, LIPID #### [facility] [address] [place] [address] Dr. Chapo Brewer Albumin/Globuli n [Mass ratio] 0.9 {ratio} Normal [facility] Comment on above: Performed By: #### CMP, LIPID #### [facility] [address] [place] [address] Dr. Chapo Brewer ALP [Catalytic activity/Vol] 88 U/L Normal 46-116 [facility] Comment on above: Performed By: #### CMP, LIPID #### [facility] [address] [address] [address] Chapo Brewer ALT [Catalytic activity/Vol] 20 U/L Normal 16-63 [facility] Comment on above: Performed By: #### CMP, LIPID #### [facility] [address] [address] [address] Chapo Brewer Anion gap [Moles/Vol] 11.6 mmol/L Normal [facility] Comment on above: Performed By: #### CMP, LIPID #### [facility] [address] [address] [address] Chapo Brewer AST [Catalytic activity/Vol] 17 U/L Normal 15-37 [facility] Comment on above: Performed By: #### CMP, LIPID #### [facility] [address] [address] [address] Chapo Brewer Bilirubin [Mass/Vol] 0.7 mg/dL Normal 0.2-1.0 [facility] Comment on above: Performed By: #### CMP, LIPID #### [facility] [address] [place] [address] Dr. Chapo Brewer Calcium [Mass/Vol] 8.7 mg/dL Normal 8.5-10.1 [facility] Comment on above: Performed By: #### CMP, LIPID #### [facility] [address] [place] [address] Dr. Chapo Brewer Chloride [Moles/Vol] 104 mmol/L Normal 98-107 [facility] Comment on above: Performed By: #### CMP, LIPID #### [facility] [address] [place] [address] Dr. Chapo Brewer CO2 [Moles/Vol] 29.2 mmol/L Normal 21.0-32.0 [facility] Comment on above: Performed By: #### CMP, LIPID #### [facility] [address] [place] [address] Dr. Chapo Brewer Creatinine [Mass/Vol] 1.12 mg/dL Normal 0.70-1.30 [facility] Comment on above: Performed By: #### CMP, LIPID #### [facility] [address] [place] [address] Dr. Chapo Brewer EGFR-AF ZAMBIAN >60 Normal >=60 [facility] Comment on above: Performed By: #### CMP, LIPID #### [facility] [address] [place] [address] Dr. Chapo Brewer EGFR-NON AF ZAMBIAN >60 Normal >=60 [facility] Comment on above: Performed By: #### CMP, LIPID #### [facility] [address] [place] [address] Dr. Chapo Brewer Globulin (S) [Mass/Vol] 3.8 g/dL Normal [facility] Comment on above: Performed By: #### CMP, LIPID #### [facility] [address] [place] [address] Dr. Chapo Brewer Glucose [Mass/Vol] 92 mg/dL Normal 74-106 [facility] Comment on above: Performed By: #### CMP, LIPID #### [facility] [address] [place] [address] Dr. Chapo Brewer Potassium [Moles/Vol] 4.8 mmol/L Normal 3.5-5.1 [facility] Comment on above: Performed By: #### CMP, LIPID #### [facility] [address] [place] [address] Dr. Chapo Brewer Protein [Mass/Vol] 7.3 g/dL Normal 6.4-8.2 [facility] Comment on above: Performed By: #### CMP, LIPID #### [facility] [address] [place] [address] Dr. Chapo Brewer Sodium [Moles/Vol] 140 mmol/L Normal 136-145 [facility] Comment on above: Performed By: #### CMP, LIPID #### [facility] [address] [place] [address] Dr. Chapo Brewer Urea nitrogen [Mass/Vol] 18.0 mg/dL Normal 7.0-18.0 [facility] Comment on above: Performed By: #### CMP, LIPID #### [facility] [address] [place] [address] Dr. Chapo Brewer Urea nitrogen/Creati nine [Mass ratio] 16.1 mg/mg Normal [facility] Comment on above: Performed By: #### CMP, LIPID #### [facility] [address] [place] [address] Dr. Chapo Spring 01-16-2022 CNOV Office Visit (RADTSA ) LOYD ALFORD ([id number]) 1960 M Date Time Provider Department 01/16/22 3:00 PM Willy REYES During your visit today, we recorded the following information about you: Temperature Pulse Respiration Weight 97.3 degrees 63/minute 16/minute 93.4 kg Willy Reyes MD 01/16/2022 3:08 PM Signed Radiation Oncology - Follow Up Note PATIENT NAME: Loyd Alford PATIENT DIAGNOSIS: Prostate adenocarcinoma, initial PSA 5.5, biopsy [place] score 3 + 3 = 6 (grade [...] lesions. ASSESSMENT/PLAN:Prostate adenocarcinoma, initial PSA 5.5, biopsy [place] score 3 + 3 = 6 (grade group 1), clinical stage T1c, N0, M0, stage I [cT1a-c/T2a, N0, M0, PSA <10, GG 1] status post prostate brachytherapy Doing well with stable and decreasing PSA. No significant problems related to prior treatment. Recommend continued follow-up with PSA in 6 months. Signed by: Willy Reyes MD cc: Mariaelena Bailey, SW[employer] HOUSE OPERATOR (DrC) [address] [place] [address] Dr. [place] Portions of the above note extracted and edited from previous visit as well as active information included in the EMR. Елена Reynolds LPN 01/16/2022 3:08 PM Signed AUA=12 Referring Provider: Willy REYES [[id number]] Allergies As of Date: 01/16/2022 (No Known Allergies) Date Reviewed: 01/16/2022 Reviewed by: Willy Reyes MD - Fully Assessed Reason for Visit: Prostate Cancer [590] Primary Visit Diagnosis:Malignant neoplasm of prostate (HCC) [C61] Order(s):PSA/PROSTSPECAG DIAG [SQPSA] Order #: [id number] FUTURE Prescriptions as of 01/16/2022 - tamsulosin [...] for Encounter Date Provider Department Center 01/16/2022 [id number] REYES [facility] Encounter Status:Closed by Willy REYES on 01/16/22 Normal [facility] PSA SerPl-mCncon 01-12-2022 Prostate specific Ag [Mass/Vol] 1.69 ng/mL Normal <2.60 [facility] Comment on above: Order Comment: Specimen Type: BLOOD SPEC IMEN Ordering Facility: [facility] Address: [address] [place] [address] Result Comment: Tota l PSA test methodology used is the Electrochemiluminescence Immunoassay by [employer]. Total PSA values by differing methodologies cannot be interchanged. Performed By: #### 2 857-1 #### [facility] CLIA [id number] [address] [place] [address] [place] CBC AUTO DIFFon 08-17-2021 BASO # 0.0 103/ul Normal 0.0-0.1 [facility] Comment on above: Performed By: #### CBC #### [facility] [address] [place] [address] Dr. Chapo Brewer Basophils/100 WBC (Bld) 0.5 % Normal 0.2-2.0 [facility] Comment on above: Performed By: #### CBC #### [facility] [address] [place] [address] Dr. Chapo Brewer EO # 0.3 103/ul Normal 0.0-0.7 [facility] Comment on above: Performed By: #### CBC #### [facility] [address] [place] [address] Dr. Chapo Brewer Eosinophils/100 WBC (Bld) 4.5 % Normal 0.9-7.0 [facility] Comment on above: Performed By: #### CBC #### [facility] [address] [place] [address] Dr. Chapo Brewer Erythrocyte distribution width (RBC) [Ratio] 12.4 % Normal 11.0-15.0 [facility] Comment on above: Performed By: #### CBC #### [facility] [address] [place] [address] Dr. Chapo Brewer Hematocrit (Bld) [Volume fraction] 44.7 % Normal 42.0-54.0 [facility] Comment on above: Performed By: #### CBC #### [facility] [address] [place] [address] Dr. Chapo Brewer Hemoglobin (Bld) [Mass/Vol] 14.6 g/dL Normal 14.0-18.0 [facility] Comment on above: Performed By: #### CBC #### [facility] [address] [place] [address] Dr. Chapo Brewer IG # 0.02 10e3/ul Normal 0.00-0.03 [facility] Comment on above: Performed By: #### CBC #### [facility] [address] [place] [address] Dr. Chapo Brewer IG % 0.3 % Normal 0.0-0.5 [facility] Comment on above: Performed By: #### CBC #### [facility] [address] [place] [address] Dr. Chapo Brewer LYMPH # 1.0 103/ul Critically low 1.2-3.8 [facility] Comment on above: Performed By: #### CBC #### [facility] [address] [place] [address] Dr. Chapo Brewer Lymphocytes/100 WBC (Bld) 17.2 % Critically low 20.5-60.0 [facility] Comment on above: Performed By: #### CBC #### [facility] [address] [place] [address] Dr. Chapo Brewer MANUAL DIFF REQ NO Normal [facility] Comment on above: Performed By: #### CBC #### [facility] [address] [place] [address] Dr. Chapo Brewer MCH (RBC) [Entitic mass] 31.3 pg Normal 25.9-34.0 [facility] Comment on above: Performed By: #### CBC #### [facility] [address] [address] [address] Chapo Brewer MCHC (RBC) [Mass/Vol] 32.7 g/dL Normal 29.9-35.2 [facility] Comment on above: Performed By: #### CBC #### [facility] [address] [address] [address] Chapo Brewer MCV (RBC) [Entitic vol] 95.7 fL Critically high 80.0-94.0 [facility] Comment on above: Performed By: #### CBC #### [facility] [address] [place] [address] Dr. Chapo Brewer MONO # 0.6 103/ul Normal 0.3-0.8 [facility] Comment on above: Performed By: #### CBC #### [facility] [address] [address] [address] Chapo Brewer Monocytes/100 WBC (Bld) 10.9 % Normal 1.7-12.0 [facility] Comment on above: Performed By: #### CBC #### [facility] [address] [address] [address] Chapo Brewer NEUT # 3.8 103/ul Normal 1.4-6.5 [facility] Comment on above: Performed By: #### CBC #### [facility] [address] [address] [address] Chapo Brewer Neutrophils/100 WBC (Bld) 66.6 % Normal 43.0-75.0 [facility] Comment on above: Performed By: #### CBC #### [facility] [address] [address] [address] Chapo Brewer Platelet mean volume (Bld) [Entitic vol] 9.2 fL Critically low 9.5-13.5 [facility] Comment on above: Performed By: #### CBC #### [facility] [address] [address] [address] Chapo Brewer PLT 227 103/ul Normal 150-450 [facility] Comment on above: Performed By: #### CBC #### [facility] [address] [place] [address] Dr. Chapo Brewer RBC 4.67 106/ul Critically low 4.70-6.10 [facility] Comment on above: Performed By: #### CBC #### [facility] [address] [place] [address] Dr. Chapo Brewer WBC 5.8 103/ul Normal 4.0-11.0 [facility] Comment on above: Performed By: #### CBC #### [facility] [address] [place] [address] Dr. Chapo Brewer PROTIMEon 08-17-2021 INR Coag (PPP) [Relative time] 0.97 {INR} Normal [facility] Comment on above: Performed By: #### PTT, PT #### [facility] [address] [place] [address] Dr. Chapo Brewer INR GUIDELINES SEE BELOW Normal [facility] Comment on above: Result Comment: DESIRED INR: 2.0 - 3.0 C ONDITIONS NOT LISTED BELOW 2.5 - 3.5 FOR PROSTHETIC HEART VALVE REPLACEMENT 2.5 - 3.5 RECURRENT THROMBOSIS Performed By: #### P TT, PT #### [facility] [address] [place] [address] Dr. Chapo Brewer PT Coag (PPP) [Time] 10.5 s Normal 9.0-11.6 [facility] Comment on above: Performed By: #### PTT, PT #### [facility] [address] [place] [address] Dr. Chapo Brewer PTTon 08-17-2021 aPTT Coag (Bld) [Time] 27.6 s Normal 22.3-36.2 [facility] Comment on above: Performed By: #### PTT, PT #### [facility] [address] [place] [address] Dr. Chapo Brewer CBC AUTO DIFFon 05-18-2021 BASO # 0.0 103/ul Normal 0.0-0.1 [facility] Comment on above: Performed By: #### CBC #### [facility] [address] [address] [address] Chapo Brewer Basophils/100 WBC (Bld) 0.6 % Normal 0.2-2.0 [facility] Comment on above: Performed By: #### CBC #### [facility] [address] [place] [address] Dr. Chapo Brewer EO # 0.4 103/ul Normal 0.0-0.7 [facility] Comment on above: Performed By: #### CBC #### [facility] [address] [address] [address] Chapo Brewer Eosinophils/100 WBC (Bld) 7.0 % Normal 0.9-7.0 [facility] Comment on above: Performed By: #### CBC #### [facility] [address] [place] [address] Dr. Chapo Brewer Erythrocyte distribution width (RBC) [Ratio] 12.4 % Normal 11.0-15.0 [facility] Comment on above: Performed By: #### CBC #### [facility] [address] [place] [address] Dr. Chapo Brewer Hematocrit (Bld) [Volume fraction] 47.4 % Normal 42.0-54.0 [facility] Comment on above: Performed By: #### CBC #### [facility] [address] [place] [address] Dr. Chapo Brewer Hemoglobin (Bld) [Mass/Vol] 15.4 g/dL Normal 14.0-18.0 [facility] Comment on above: Performed By: #### CBC #### [facility] [address] [place] [address] Dr. Chapo Brewer IG # 0.02 10e3/ul Normal 0.00-0.03 [facility] Comment on above: Performed By: #### CBC #### [facility] [address] [place] [address] Dr. Chapo Brewer IG % 0.4 % Normal 0.0-0.5 [facility] Comment on above: Performed By: #### CBC #### [facility] [address] [address] [address] Chapo Brewer LYMPH # 1.1 103/ul Critically low 1.2-3.8 [facility] Comment on above: Performed By: #### CBC #### [facility] [address] [address] [address] Chapo Brewer Lymphocytes/100 WBC (Bld) 21.5 % Normal 20.5-60.0 [facility] Comment on above: Performed By: #### CBC #### [facility] [address] [address] [address] Chapo Brewer MANUAL DIFF REQ NO Normal [facility] Comment on above: Performed By: #### CBC #### [facility] [address] [place] [address] Dr. Chapo Brewer MCH (RBC) [Entitic mass] 30.9 pg Normal 25.9-34.0 [facility] Comment on above: Performed By: #### CBC #### [facility] [address] [place] [address] Dr. Chapo Brewer MCHC (RBC) [Mass/Vol] 32.5 g/dL Normal 29.9-35.2 [facility] Comment on above: Performed By: #### CBC #### [facility] [address] [place] [address] Dr. Chapo Brewer MCV (RBC) [Entitic vol] 95.2 fL Critically high 80.0-94.0 [facility] Comment on above: Performed By: #### CBC #### [facility] [address] [place] [address] Dr. Chapo Brewer MONO # 0.7 103/ul Normal 0.3-0.8 [facility] Comment on above: Performed By: #### CBC #### [facility] [address] [place] [address] Dr. Chapo Brewer Monocytes/100 WBC (Bld) 13.7 % Critically high 1.7-12.0 [facility] Comment on above: Performed By: #### CBC #### [facility] [address] [address] [address] Chapo Brewer NEUT # 2.9 103/ul Normal 1.4-6.5 [facility] Comment on above: Performed By: #### CBC #### [facility] [address] [address] [address] Chapo Brewer Neutrophils/100 WBC (Bld) 56.8 % Normal 43.0-75.0 [facility] Comment on above: Performed By: #### CBC #### [facility] [address] [address] [address] Chapo Brewer Platelet mean volume (Bld) [Entitic vol] 9.8 fL Normal 9.5-13.5 [facility] Comment on above: Performed By: #### CBC #### [facility] [address] [place] [address] Dr. Chapo Brewer PLT 210 103/ul Normal 150-450 [facility] Comment on above: Performed By: #### CBC #### [facility] [address] [address] [address] Chapo Brewer RBC 4.98 106/ul Normal 4.70-6.10 [facility] Comment on above: Performed By: #### CBC #### [facility] [address] [address] [address] Chapo Brewer WBC 5.1 103/ul Normal 4.0-11.0 [facility] Comment on above: Performed By: #### CBC #### [facility] [address] [place] [address] Dr. Chapo Brewer Vital Signs Date Time Vital Sign Value Performing Clinician Facility 04-22-2024 15:36-0500 Diastolic blood pressure 92 mm[Hg] Mariaelena Bailey [employer]IC [employer] Work Phone: [facility] 04-22-2024 15:36-0500 Systolic blood pressure 122 mm[Hg] Mariaelena Bailey MUSIC CRITIC Work Phone: [facility] 04-22-2024 15:14-0500 Body height 188 cm Mariaelena Bailey MUSIC CRITIC Work Phone: [facility] 04-22-2024 15:14-0500 Body mass index (BMI) [Ratio] 27.19 kg/m2 Mariaelena Jimenezhome MUSIC CRITIC Work Phone: [facility] 04-22-2024 15:14-0500 Body temperature 98.1 [degF] Mariaelena Jimenezhome MUSIC CRITIC Work Phone: [facility] 04-22-2024 15:14-0500 Body weight 96.07 kg Mariaelena Friassong MUSIC CRITIC Work Phone: [facility] 04-22-2024 15:14-0500 Heart rate 66 /min Mariaelena Leo MUSIC CRITIC Work Phone: [facility] 04-22-2024 15:14-0500 Respiratory rate 19 /min Mariaelena Rodriguezjoehome MUSIC CRITIC Work Phone: [facility] 04-22-2024 15:14-0500 SaO2% (BldA) [Mass fraction] 99 % Mariaelena Jimenezhome MUSIC CRITIC Work Phone: [facility] 12-06-2023 08:14-0400 Blood Pressure Location David CARNEY [facility] 12-06-2023 08:14-0400 Body temperature 98.6 [degF] Davidrosio CARNEY [facility] 12-06-2023 08:14-0400 Diastolic blood pressure 88 mm[Hg] David CARNEY [facility] 12-06-2023 08:14-0400 Heart rate 79 /min David CARNEY [facility] 12-06-2023 08:14-0400 Respiratory rate 16 /min David CARNEY [facility] 12-06-2023 08:14-0400 Systolic blood pressure 134 mm[Hg] David CARNEY [facility] 04-22-2023 09:00-0500 Body height 187.96 cm Meg Reynolds Other [employer] Other 04-22-2023 09:00-0500 Body mass index (BMI) [Ratio] 26.96 kg/m2 Meg Reynolds Other [employer] Other 04-22-2023 09:00-0500 Body temperature 98.5 [degF] Meg Reynolds Other [employer] Other 04-22-2023 09:00-0500 Body weight 95.26 kg Meg Reynolds Other [employer] Other 04-22-2023 09:00-0500 Diastolic blood pressure 92 mm[Hg] Meg Reynolds Other [employer] Other 04-22-2023 09:00-0500 Respiratory rate 18 /min Meg Reynolds Other [employer] Other 04-22-2023 09:00-0500 SaO2% (BldA) [Mass fraction] 98 % Meg Reynolds Other [employer] Other 04-22-2023 09:00-0500 Systolic blood pressure 143 mm[Hg] Meg Reynolds Other [employer] Other 12-03-2022 11:33-0400 Blood Pressure Location David CARNEY [facility] 12-03-2022 11:33-0400 Diastolic blood pressure 80 mm[Hg] David CARNEY [facility] 12-03-2022 11:33-0400 Heart rate 68 /min David CARNEY [facility] 12-03-2022 11:33-0400 Respiratory rate 16 /min David CARNEY [facility] 12-03-2022 11:33-0400 Systolic blood pressure 120 mm[Hg] David CARNEY [facility] 07-17-2022 14:48-0400 Body temperature 97.59 [degF] JOSELYN Reyes MD Work Phone: [facility] 07-17-2022 14:48-0400 Body weight 96.16 kg NA Amy AVINA Work Phone: [facility] 07-17-2022 14:48-0400 Diastolic blood pressure 90 mm[Hg] JOSELYN Reyes MD Work Phone: [facility] 07-17-2022 14:48-0400 Heart rate 64 /min JOSELYN Reyes MD Work Phone: [facility] 07-17-2022 14:48-0400 Respiratory rate 16 /min JOSELYN Reyes MD Work Phone: [facility] 07-17-2022 14:48-0400 SaO2% (BldA) [Mass fraction] 97 % JOSELYN Reyes MD Work Phone: [facility] 07-17-2022 14:48-0400 Systolic blood pressure 135 mm[Hg] JOSELYN Reyes MD Work Phone: [facility] 11-21-2021 08:41-0400 Blood Pressure Location Derek Soto Jr. [facility] 11-21-2021 08:41-0400 Diastolic blood pressure 78 mm[Hg] Derek Soto Jr. [facility] 11-21-2021 08:41-0400 Heart rate 64 /min Derek Soto Jr. [facility] 11-21-2021 08:41-0400 Respiratory rate 16 /min Derek Soto Jr. [facility] 11-21-2021 08:41-0400 Systolic blood pressure 118 mm[Hg] Derek Soto Jr. [facility] Encounters Encounter Date Encounter Type Care Provider Facility Start: 12-11-2024 ambulatory David Douglass ty:[facility] [place] Start: 06-15-2024 End: 06-15-2024 Refill Mariaelena Bailey MUSIC CRITIC Work Phone: [facility] Comment on above: Primary hypertension (CMS/HCC) Start: 04-22-2024 End: 04-22-2024 Periodic preventive med est patient 40-64yrs Mariaelena Bailey MUSIC CRITIC Work Phone: [facility] Comment on above: Encounter for [facility] ss examination (Primary Dx); Primary hypertension (CMS/HCC); Benign prostatic hyperplasia without urinary obstruction; 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; Malignant neoplasm of prostate (CMS/HCC); Overweight (BMI 25.0-29.9) Start: 04-22-2024 End: 04-22-2024 ambulatory MARIAELENA BAILEY Not Available Start: 04-22-2024 End: 04-22-2024 Bamboo flowsheet Mariaelena Bailey MUSIC CRITIC Work Phone: [facility] Start: 04-22-2024 End: 04-22-2024 Bamboo flowsheet Mariaelena Bailey MUSIC CRITIC Work Phone: [facility] Start: 04-22-2024 End: 04-22-2024 Patient encounter status Mariaelena Leo MUSIC CRITIC Work Phone: [facility] Start: 12-06-2023 End: 12-06-2023 ambulatory David CARNEY Facility:[facility] Start: 12-06-2023 End: 12-06-2023 Patient encounter procedure David CARNEY [facility] Start: 10-24-2023 End: 10-24-2023 ambulatory MARIAELENA BAILEY Not Available Start: 04-22-2023 Office outpatient ne w 20 minutes Meg [address] [facility] Start: 04-22-2023 End: 04-22-2023 ambulatory Meg Reynolds [facility] [employer] Other Start: 12-03-2022 End: 12-03-2022 Patient encounter procedure David CARNEY [facility] Start: 07-17-2022 End: 07-17-2022 ambulatory Willy REYES Facility:[facility] Start: 07-17-2022 End: 07-17-2022 Patient encounter procedure Willy Reyes MD Work Phone: [facility] Comment on above: Malignant neoplasm o f prostate (HCC) (Primary Dx) Start: 07-12-2022 End: 07-12-2022 ambulatory MARIAELENA BAILEY Facility:[facility] Start: 03-04-2022 Encounter for genera l adult medical examination without abnormal findings DAVID BAILEY [facility] Start: 02-27-2022 End: 02-28-2022 ambulatory DAVID BAILEY Facility:[facility] Start: 02-27-2022 End: 02-28-2022 Encounter for general adult medical examination without abnormal findings DAVID BAILEY Facility:[facility] Start: 01-16-2022 End: 01-16-2022 ambulatory Willy REYES Facility:[facility] Start: 01-12-2022 End: 01-12-2022 ambulatory MARIAELENA BAILEY Facility:[facility] Start: 11-21-2021 End: 11-21-2021 Patient encounter procedure Derek Soto Jr. [facility] Start: 08-17-2021 End: 08-18-2021 ambulatory DAVID BAIELY Facility:[facility] Start: 07-17-2021 End: 07-18-2021 ambulatory DAVID BAILEY Facility:[facility] Start: 05-18-2021 End: 05-19-2021 ambulatory DAVID BAILEY Facility:[facility] Start: 06-16-2020 End: 06-16-2020 Patient encounter procedure External Provider [facility] Start: 06-16-2020 Results Only External Provider Exter nal-Non[facility] Procedures Date Procedure Procedure Detail Performing Clinician Start: 07-17-2021 PSA screening DAVID BAILEY Comment on above: Performed By: #### P SAD #### [facility] [address] [place] [address] Dr. Chapo Brewer Start: 08-31-2020 Brachytherapy implan t (physical object) Derek Soto Jr. Start: 06-16-2020 EXTERNAL LAB External P rovider Start: 05-19-2020 Transrectal biopsy o f prostate using ultrasound guidance Derek Soto Jr. Start: 06-20-2018 Colonoscopy Mariaelena Samina beckerz MUSIC CRITIC Work Phone: Basal cell carcinoma of neck (disorder) David CARNEY Colonoscopy Derek Forrester Plan of Treatment Date Care Activity Detail Author Start: 06-20-2028 Screening for malign ant neoplasm of colon [facility] Start: 07-13-2027 PROSTATE CANCER SCREENING DISCUSSION PROSTATE CANCER SCREENING DISCUSSION [facility] Start: 10-21-2024 End: 10-21-2024 Patient encounter procedure 10/21/2024 3:00 PM EDT Office Visit [facility] [address] [place] [address] Mariaelena Bailey, SARATH [address] [place] [phone] [facility] Start: 04-22-2024 End: 04-22-2024 Patient encounter procedure 04/22/2024 3:00 PM EST Office Visit [facility] [address] [place] [address] Mariaelena Bailey, SARATH [address] [place] [phone] Encounter for wellness examination (Primary Dx); Primary hypertension (CMS/HCC); Benign prostatic hyperplasia without urinary obstruction; 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; Malignant neoplasm of prostate (CMS/HCC) [facility] Comment on above: Encounter for wellne ss examination (Primary Dx); Primary hypertension (CMS/HCC); Benign prostatic hyperplasia without urinary obstruction; 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; Malignant neoplasm of prostate (CMS/HCC) Start: 04-22-2024 End: 04-22-2025 CBC W Auto Differential panel - Blood CBC and differential Lab Routine Encounter for wellness examination Expected: 04/22/2024 (Approximate), Expires: 04/22/2025 [facility] Work Phone: Comment on above: Expected: 04/22/2024 (Approximate), Expires: 04/22/2025 Start: 04-22-2024 End: 04-22-2025 Comprehensive metabolic 2000 panel - Serum or Plasma Comprehensive metabolic panel Lab Routine Encounter for wellness examination Expected: 04/22/2024 (Approximate), Expires: 04/22/2025 [facility] Comment on above: Expected: 04/22/2024 (Approximate), Expires: 04/22/2025 Start: 04-22-2024 End: 04-22-2025 Lipid 1996 panel - Serum or Plasma Lipid panel Lab Routine Encounter for wellness examination Expected: 04/22/2024 (Approximate), Expires: 04/22/2025 [facility] Comment on above: Expected: 04/22/2024 (Approximate), Expires: 04/22/2025 Start: 04-22-2024 End: 04-22-2025 Microalbumin/Creatinine panel in random Urine Microalbumin / creatinine, urine ratio Lab Routine Encounter for wellness examination Expected: 04/22/2024 (Approximate), Expires: 04/22/2025 [facility] Comment on above: Expected: 04/22/2024 (Approximate), Expires: 04/22/2025 Start: 04-22-2024 End: 04-22-2025 Urinalysis complete panel - Urine Urinalysis with reflex microscopic (clean catch) Lab Routine Encounter for wellness examination Expected: 04/22/2024 (Approximate), Expires: 04/22/2025 [facility] Comment on above: Expected: 04/22/2024 (Approximate), Expires: 04/22/2025 Start: 01-17-2023 End: 03-19-2023 Prostate specific Ag [Mass/volume] in Serum or Plasma PSA/PROSTSPECAG DIAG Lab Routine Malignant neoplasm of prostate (HCC) Expected: 01/17/2023, Expires: 03/19/2023 [facility] Work Phone: Comment on above: Expected: 01/17/2023 , Expires: 03/19/2023 Start: 05-06-2022 DEPRESSION ASSESSMENT DEPRESSION ASS ESSMENT [facility] Start: 01-04-2022 Influenza vaccination INFLUENZA (#1) [facility] Start: 05-11-2021 COVID-19 VACCINE (4 - Booster for Pfizer series) COVID-19 VACCINE (4 - Booster for Pfizer series) [facility] Start: 01-05-2020 Influenza vaccination INFLUENZA (#1) [facility] Start: 2015 PROSTATE CANCER SCREENING DISCUSSION PROSTATE CANCER SCREENING DISCUSSION [facility] Start: 2010 Screening for malign ant neoplasm of colon [facility] Start: 2010 SHINGRIX VACCINE (1 of 2) SHINGRIX VACCINE (1 of 2) [facility] Start: 2005 COLOGUARD (FIT-DNA) COLOGUARD (FIT-D NA) [facility] Start: 2005 Colonoscopy COLONOSCOPY [facility] Start: 2005 COLORECTAL CANCER SCREENING COLORECTAL CANCER SCREENING [facility] Start: [address] COLONOGRAPHY [facility] Start: 2005 DIABETES SCREEN DIABETES SCREEN [facility] Start: 2005 FECAL OCCULT BLOOD FECAL OCCULT BLOO D [facility] Start: 2005 SIGMOIDOSCOPY SIGMOIDOSCOPY [facility] Start: 1995 LIPID SCREEN LIPID SCREEN [facility] Start: 1979 Urine microalbumin profile DTAP,TDAP,TD (1 - Tdap) [facility] Start: 1978 HEPATITIS C SCREENING HEPATITIS C SC REENING [facility] Start: 1978 HIV SCREENING HIV SCREENING [facility] Start: 1972 Adult depression screening assessment DEPRESSION SCREENING [facility] Start: 1960 Screening for malign ant neoplasm of colon [facility] Immunizations Immunization Date Immunization Notes Care Provider [facility] 05-15-2021 influenza virus vaccine, unspecified formulation David CARNEY [facility] 05-15-2021 influenza, injectable, quadrivalent, preservative free Mariaelena Bailey NP Work Phone: [facility] 05-15-2021 zoster vaccine recombinant David CARNEY [facility] 03-16-2021 SARS-CoV-2 (COVID-19 ) mRNA BNT-162b2 vax David CARNEY [facility] 08-13-2020 COVID-19 original vaccine, age 12+ yr, monovalent (PFIZER-BIONTECH - PURPLE TOP) JOSELYN Reyes MD Work Phone: [facility] 07-22-2020 COVID-19 original vaccine, age 12+ yr, monovalent (PFIZER-BIONTECH - PURPLE TOP) JOSELYN Reyes MD Work Phone: [facility] 02-28-2018 influenza virus vaccine, unspecified formulation David CARNEY [facility] 02-28-2018 influenza, injectable, quadrivalent, contains preservative Mariaelena Aichholz MUSIC CRITIC Work Phone: [facility] 07-25-2015 influenza virus vaccine, unspecified formulation David CARNEY [facility] 07-25-2015 influenza, seasonal, injectable, preservative free Mariaelena Aichholz MUSIC CRITIC Work Phone: [facility] 07-25-2015 tetanus toxoid, reduced diphtheria toxoid, and acellular pertussis vaccine, adsorbed David CARNEY [facility] NEGATED: Highlighted row has not occurred!06-14-2020 influenza virus vaccine, unspecified formulation Derek Soto Jr. [facility] Payers Date Payer Category Payer Private Health Insurance [employer] [id number] 2023 Unknown [id number] 2023 Self-pay 2018 Unknown [employer] PPO [id number] 2018-Present PPO [id number] 2018 Unknown [employer]FFANI THOMASON PPO [id number] 2018-Present [phone] [id number] [place] [address] PPO [id number] 1960 Unknown [id number] 1960 Unknown [id number] 1960 Unknown [id number] 1960 Unknown [id number] 1960 Unknown [id number] 1960 Unknown [id number] 1960 Unknown [id number] 1960 Unknown [id number] 1959 Unknown [id number] Unknown [id number] Social History Date Type Detail [facility] Start: 1960 Sex Assigned At Not on file [facility] Start: 11-21-2021 End: 11-30-2022 Tobacco smoking status Never smoked tobacco (finding) [facility] Start: 04-21-2024 End: 04-22-2024 Sex Assigned At Male [facility] Start: 01-16-2022 End: 11-30-2022 Tobacco use and exposure Smokeless tobacco non-user [facility] Start: 07-17-2022 End: 04-22-2024 Alcohol intake Current drinker of alcohol (finding) [facility] Start: 06-17-2020 Alcohol Comment couple times a week [facility] Tobacco smoking status Never [facility] Start: 10-24-2023 End: 04-21-2024 Alcoholic beverage intake [facility] Do you belong to any clubs or organizations such as yazidi groups, unions, fraternal or athletic groups, or school groups? No [facility] Are you now , , , , never or living with a partner? [facility] How often to you hav e a drink containing alcohol? 2-3 time sa week [facility] How many standard dr inks containing alcohol do you have on a typical day? 3 or 4 [facility] How often do you hav e 6 or more drinks on 1 occasion? Less than monthly [facility] Do you feel stress - tense, restless, nervous, or anxious, or unable to sleep at night because your mind is troubled all the time - these days [OSQ] Only a little [facility] (I/We) worried wheth er (my/our) food would run out before (I/we) got money to buy more. Never true [facility] Start: 04-16-2023 Alcohol Comment 12 weekly [facility] Start: 1960 Sex assigned at Male [facility] Start: 10-19-2022 Gender identity Identifies as male gender (finding) [facility] Start: 10-19-2022 Sexual orientation Heterosexual (finding) [facility] Functional Status Date Assessment Result Facility 12-06-2023 Functional Status N/A [facility] 12-03-2022 Functional Status N/A [facility] 11-21-2021 Functional Status N/A [facility] Clinical Notes 11-21-2021 to 04-22-2024 Mariaelena Bailey NP - 04/22/2024 3:00 PM ESTLisa Leo, MUSIC CRITIC - 04/22/2024 7:44 AM ESTLisa Malvinz, MUSIC CRITIC - 04/22/2024 7:44 AM ESTLisa Malvinz, MUSIC CRITIC - 04/22/2024 7:43 AM ESTPatient Instructions Note Date & Type Note Facility 04-22-2024 History of Present illness Narrative Images from the original note were not included. Loyd Alford is a 63 y.o. male presents with chief complaint of Hypertension HPI: Diet: could eat more healthy Activity: push ups, not a lot of aerobic activity Mental Health Concerns: none Falls in the last year: none Any hearing problems: none Any Vision problems: contacts, yearly eye exams Any Hospitalizations in the last year: none Specialist: Urologist Dr Carney, Eye doctor: Dr Tyler, Concerns: spot on chest Hypertension This is a chronic problem. The current episode started more than 1 year ago. The problem is unchanged. The problem is controlled. Pertinent negatives include no blurred vision, chest pain, orthopnea, peripheral edema or shortness of breath. There are no associated agents to hypertension. Risk factors for coronary artery disease include male gender. Past treatments include MELISSA inhibitors. The current treatment provides significant improvement. There are no compliance problems. SUBJECTIVE: MEDICATIONS: Current Outpatient Medications Medication Instructions lisinopril 20 mg, Oral, Daily sildenafil (Viagra) 100 MG tablet TAKE 1 TABLET BY MOUTH 1 HOUR BEFORE SEXUAL ACTIVITY. tamsulosin (FLOMAX) 0.4 mg, Oral, Daily ALLERGIES: No Known Allergies REVIEW OF SYMPTOMS: Review of Systems Constitutional: Negative for activity change, appetite change and unexpected weight change. HENT: Negative for ear pain, nosebleeds, sneezing, trouble swallowing and voice change. Eyes: Negative for blurred vision, pain, discharge and visual disturbance. Respiratory: Negative for apnea, chest tightness, shortness of breath and wheezing. Cardiovascular: Negative for chest pain, orthopnea and leg swelling. Gastrointestinal: Negative for abdominal distention, blood in stool, constipation and diarrhea. Genitourinary: Negative for decreased urine volume, difficulty urinating, dysuria and hematuria. Skin: Negative for color change. Neurological: Negative for dizziness, tremors and seizures. Psychiatric/Behavioral: Negative for agitation, decreased concentration, hallucinations, self-injury and suicidal ideas. The patient is not nervous/anxious. Hematological: Negative for adenopathy. Does not bruise/bleed easily. Endocrine: Negative for cold intolerance, heat intolerance, polydipsia and polyuria. Allergic/Immunologic: Negative for environmental allergies and food allergies. PAST MEDICAL HISTORY Past Medical History: Diagnosis Date Abnormal CBC Abnormal EKG Adenocarcinoma of prostate (CMS/HCC) 06/2018 Basal cell carcinoma Easy bruising Elevated PSA Folliculitis Hematuria, gross Hypertension (CMS/HCC) Neoplasm of uncertain behavior Overweight (BMI 25.0-29.9) 04/16/2023 Past Surgical History: Procedure Laterality Date COLONOSCOPY family history includes Breast cancer in his sister and sister; Cancer in his brother, father, mother, sister, and sister; Hypertension in his brother and brother; Lung cancer in his father; Ovarian cancer in his mother; Prostate cancer in his brother; Pulmonary edema in his mother. OBJECTIVE: Visit Vitals BP (!) 122/92 (BP Location: Left arm, Patient Position: Sitting, BP Cuff Size: Large adult) Pulse 66 Temp 98.1 F (Temporal) Resp 19 Ht 6' 2 Wt 211 lb 12.8 oz SpO2 99% BMI 27.19 kg/m Smoking Status Never BSA 2.24 m Physical Exam Vitals and nursing note reviewed. Constitutional: Appearance: Normal appearance. He is not ill-appearing or diaphoretic. HENT: Head: Normocephalic. Right Ear: Tympanic membrane, ear canal and external ear normal. Left Ear: Tympanic membrane, ear canal and external ear normal. Nose: Nose normal. Mouth/Throat: Mouth: Mucous membranes are moist. Pharynx: Oropharynx is clear. No oropharyngeal exudate or posterior oropharyngeal erythema. Eyes: Extraocular Movements: Extraocular movements intact. Conjunctiva/sclera: Conjunctivae normal. Neck: Vascular: No carotid bruit. Cardiovascular: Rate and Rhythm: Normal rate and regular rhythm. Pulses: Normal pulses. Heart sounds: Normal heart sounds. Pulmonary: Effort: Pulmonary effort is normal. Breath sounds: Normal breath sounds. No wheezing. Abdominal: General: Bowel sounds are normal. Palpations: Abdomen is soft. Musculoskeletal: Cervical back: Neck supple. Right lower leg: No edema. Left lower leg: No edema. Lymphadenopathy: Cervical: No cervical adenopathy. Skin: General: Skin is warm and dry. Capillary Refill: Capillary refill takes 2 to 3 seconds. Neurological: General: No focal deficit present. Mental Status: He is alert. Psychiatric: Mood and Affect: Mood normal. Behavior: Behavior normal. Thought Content: Thought content normal. Judgment: Judgment normal. ASSESSMENT AND PLAN: Follow up in about 6 months (around 10/21/2024) for Recheck. Problem List Items Addressed This Visit Malignant neoplasm of prostate (CMS/HCC) Continues with fu with Urology for this condition Hypertension (CMS/HCC) Please check blood pressure daily and record DASH diet Limit caffeine Take medication as directed Contact office if chest pain, pressure, dizziness, shortness of breath, swelling legs Recommend slow position changes Current meds: lisinopril 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 Uses viagra prn Cont with oncology and urology Benign prostatic hyperplasia without urinary obstruction Sees urology Current medication is Flomax Overweight (BMI 25.0-29.9) Encounter for wellness examination - Primary Reviewed Ht/Wt/BMI Recommend eye exam yearly Recommend dental exams twice a year Balance work/leisure activities Exercises is recommended most days of the week (appropriate as chronic conditions allow) Recommend consideration of vaccines: flu, shingles, pnuemonia Follow up yearly and prn Relevant Orders CBC and differential Comprehensive metabolic panel Lipid panel Urinalysis with reflex microscopic (clean catch) Microalbumin / creatinine, urine ratio Associated Problem(s): Encounter for wellness examination Reviewed Ht/Wt/BMI Recommend eye exam yearly Recommend dental exams twice a year Balance work/leisure activities Exercises is recommended most days of the week (appropriate as chronic conditions allow) Recommend consideration of vaccines: flu, shingles, pnuemonia Follow up yearly and prn Associated Problem(s): Malignant neoplasm of prostate (CMS/HCC) Continues with fu with Urology for this condition Associated Problem(s): 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 Uses viagra prn Cont with oncology and urology Associated Problem(s): Benign prostatic hyperplasia without urinary obstruction Sees urology Current medication is Flomax Associated Problem(s): Hypertension (CMS/HCC) Please check blood pressure daily and record DASH diet Limit caffeine Take medication as directed Contact office if chest pain, pressure, dizziness, shortness of breath, swelling legs Recommend slow position changes Current meds: lisinopril documented in this encounter [facility] 04-22-2024 Instructions Mariaelena Bailey NP - 04/22/2024 3:00 PM EST Get labs done, fasting 8 hours Aerobic activity, 3-4 times week for 30 minutes documented in this encounter [facility] 12-06-2023 Hospital Discharge instructions Patient Education 12/06/2023 08:38:11 Benign Prostatic Hyperplasia Benign Prostatic Hyperplasia Benign prostatic hyperplasia (BPH) is an enlarged prostate gland that is caused by the normal aging process. The prostate may get bigger as a man gets older. The condition is not caused by cancer. The prostate is a walnut-sized gland that is involved in the production of semen. It is located in front of the rectum and below the bladder. The bladder stores urine. The urethra carries stored urine out of the body. An enlarged prostate can press on the urethra. This can make it harder to pass urine. The buildup of urine in the bladder can cause infection. Back pressure and infection may progress to bladder damage and kidney (renal) failure. What are the causes? This condition is part of the normal aging process. However, not all men develop problems from this condition. If the prostate enlarges away from the urethra, urine flow will not be blocked. If it enlarges toward the urethra and compresses it, there will be problems passing urine. What increases the risk? This condition is more likely to develop in men older than 50 years. What are the signs or symptoms? Symptoms of this condition include: Getting up often during the night to urinate. Needing to urinate frequently during the day. Difficulty starting urine flow. Decrease in size and strength of your urine stream. Leaking (dribbling) after urinating. Inability to pass urine. This needs immediate treatment. Inability to completely empty your bladder. Pain when you pass urine. This is more common if there is also an infection. Urinary tract infection (UTI). How is this diagnosed? This condition is diagnosed based on your medical history, a physical exam, and your symptoms. Tests will also be done, such as: A post-void bladder scan. This measures any amount of urine that may remain in your bladder after you finish urinating. A digital rectal exam. In a rectal exam, your health care provider checks your prostate by putting a lubricated, gloved finger into your rectum to feel the back of your prostate gland. This exam detects the size of your gland and any abnormal lumps or growths. An exam of your urine (urinalysis). A prostate specific antigen (PSA) screening. This is a blood test used to screen for prostate cancer. An ultrasound. This test uses sound waves to electronically produce a picture of your prostate gland. Your health care provider may refer you to a specialist in kidney and prostate diseases (urologist). How is this treated? Once symptoms begin, your health care provider will monitor your condition (active surveillance or watchful waiting). Treatment for this condition will depend on the severity of your condition. Treatment may include: Observation and yearly exams. This may be the only treatment needed if your condition and symptoms are mild. Medicines to relieve your symptoms, including: ?Medicines to shrink the prostate. ?Medicines to relax the muscle of the prostate. Surgery in severe cases. Surgery may include: ?Prostatectomy. In this procedure, the prostate tissue is removed completely through an open incision or with a laparoscope or robotics. ?Transurethral resection of the prostate (TURP). In this procedure, a tool is inserted through the opening at the tip of the penis (urethra). It is used to cut away tissue of the inner core of the prostate. The pieces are removed through the same opening of the penis. This removes the blockage. ?Transurethral incision (TUIP). In this procedure, small cuts are made in the prostate. This lessens the prostate's pressure on the urethra. ?Transurethral microwave thermotherapy (TUMT). This procedure uses microwaves to create heat. The heat destroys and removes a small amount of prostate tissue. ?Transurethral needle ablation (TUNA). This procedure uses radio frequencies to destroy and remove a small amount of prostate tissue. ?Interstitial laser coagulation (ILC). This procedure uses a laser to destroy and remove a small amount of prostate tissue. ?Transurethral electrovaporization (TUVP). This procedure uses electrodes to destroy and remove a small amount of prostate tissue. ?Prostatic urethral lift. This procedure inserts an implant to push the lobes of the prostate away from the urethra. Follow these instructions at home: Take ztds-rwf-dbknjsi and prescription medicines only as told by your health care provider. Monitor your symptoms for any changes. Contact your health care provider with any changes. Avoid drinking large amounts of liquid before going to bed or out in public. Avoid or reduce how much caffeine or alcohol you drink. Give yourself time when you urinate. Keep all follow-up visits. This is important. Contact a health care provider if: You have unexplained back pain. Your symptoms do not get better with treatment. You develop side effects from the medicine you are taking. Your urine becomes very dark or has a bad smell. Your lower abdomen becomes distended and you have trouble passing urine. Get help right away if: You have a fever or chills. You suddenly cannot urinate. You feel light-headed or very dizzy, or you faint. There are large amounts of blood or clots in your urine. Your urinary problems become hard to manage. You develop moderate to severe low back or flank pain. The flank is the side of your body between the ribs and the hip. These symptoms may be an emergency. Get help right away. Call 911. Do not wait to see if the symptoms will go away. Do not drive yourself to the hospital. Summary Benign prostatic hyperplasia (BPH) is an enlarged prostate that is caused by the normal aging process. It is not caused by cancer. An enlarged prostate can press on the urethra. This can make it hard to pass urine. This condition is more likely to develop in men older than 50 years. Get help right away if you suddenly cannot urinate. This information is not intended to replace advice given to you by your health care provider. Make sure you discuss any questions you have with your health care provider. Document Revised: 11/08/2021 Document Reviewed: 11/08/2021 [employer] Patient Education 2022 [employer]. Follow Up Care 12/03/2022 12:33:18 With:NIRU AVINA, David Rangel, URL Address: [address] [place] [phone] When: Unknown [facility] 12-06-2023 Note Patient Education Urology Benign Prostatic Hyperplasia Benign prostatic hyperplasia (BPH) is an enlarged prostate gland that is caused by the normal aging process. The prostate may get bigger as a man gets older. The condition is not caused by cancer. The prostate is a walnut-sized gland that is involved in the production of semen. It is located in front of the rectum and below the bladder. The bladder stores urine. The urethra carries stored urine out of the body. An enlarged prostate can press on the urethra. This can make it harder to pass urine. The buildup of urine in the bladder can cause infection. Back pressure and infection may progress to bladder damage and kidney (renal) failure. What are the causes? This condition is part of the normal aging process. However, not all men develop problems from this condition. If the prostate enlarges away from the urethra, urine flow will not be blocked. If it enlarges toward the urethra and compresses it, there will be problems passing urine. What increases the risk? This condition is more likely to develop in men older than 50 years. What are the signs or symptoms? Symptoms of this condition include: ? Getting up often during the night to urinate. ? Needing to urinate frequently during the day. ? Difficulty starting urine flow. ? Decrease in size and strength of your urine stream. ? Leaking (dribbling) after urinating. ? Inability to pass urine. This needs immediate treatment. ? Inability to completely empty your bladder. ? Pain when you pass urine. This is more common if there is also an infection. ? Urinary tract infection (UTI). How is this diagnosed? This condition is diagnosed based on your medical history, a physical exam, and your symptoms. Tests will also be done, such as: ? A post-void bladder scan. This measures any amount of urine that may remain in your bladder after you finish urinating. ? A digital rectal exam. In a rectal exam, your health care provider checks your prostate by putting a lubricated, gloved finger into your rectum to feel the back of your prostate gland. This exam detects the size of your gland and any abnormal lumps or growths. ? An exam of your urine (urinalysis). ? A prostate specific antigen (PSA) screening. This is a blood test used to screen for prostate cancer. ? An ultrasound. This test uses sound waves to electronically produce a picture of your prostate gland. Your health care provider may refer you to a specialist in kidney and prostate diseases (urologist). How is this treated? Once symptoms begin, your health care provider will monitor your condition (active surveillance or watchful waiting). Treatment for this condition will depend on the severity of your condition. Treatment may include: ? Observation and yearly exams. This may be the only treatment needed if your condition and symptoms are mild. ? Medicines to relieve your symptoms, including: ? Medicines to shrink the prostate. ? Medicines to relax the muscle of the prostate. ? Surgery in severe cases. Surgery may include: ? Prostatectomy. In this procedure, the prostate tissue is removed completely through an open incision or with a laparoscope or robotics. ? Transurethral resection of the prostate (TURP). In this procedure, a tool is inserted through the opening at the tip of the penis (urethra). It is used to cut away tissue of the inner core of the prostate. The pieces are removed through the same opening of the penis. This removes the blockage. ? Transurethral incision (TUIP). In this procedure, small cuts are made in the prostate. This lessens the prostate's pressure on the urethra. ? Transurethral microwave thermotherapy (TUMT). This procedure uses microwaves to create heat. The heat destroys and removes a small amount of prostate tissue. ? Transurethral needle ablation (TUNA). This procedure uses radio frequencies to destroy and remove a small amount of prostate tissue. ? Interstitial laser coagulation (ILC). This procedure uses a laser to destroy and remove a small amount of prostate tissue. ? Transurethral electrovaporization (TUVP). This procedure uses electrodes to destroy and remove a small amount of prostate tissue. ? Prostatic urethral lift. This procedure inserts an implant to push the lobes of the prostate away from the urethra. Follow these instructions at home: ? Take zuvt-xnf-zybxigx and prescription medicines only as told by your health care provider. ? Monitor your symptoms for any changes. Contact your health care provider with any changes. ? Avoid drinking large amounts of liquid before going to bed or out in public. ? Avoid or reduce how much caffeine or alcohol you drink. ? Give yourself time when you urinate. ? Keep all follow-up visits. This is important. Contact a health care provider if: ? You have unexplained back pain. ? Your symptoms do not get better with treatment. ? You develop side effec (more content not included)... [place] 04-22-2023 Evaluation note Encounter Date Diagnosis Assessment [...] follow up with PCP if new/worsening symptoms. [facility] Other 07-31-2023 Hospital Discharge instructions Patient Education [...] under a microscope. This is called the [place] score and the total score can range from 6 10, indicating how likely it is that the cancer will spread (metastasize) to other parts of the body. The higher the score, the greater thelikelihood that the cancer will spread. [place] 6 or lower: This indicates that the [...] stress of having cancer. General instructions Take rdul-uky-sfgjahj and prescription medicines only as told by your health care provider. If you have to go to the hospital, notify your cancer specialist (oncologist). Keep all follow-up visits. This is important. Where to find more information [place] [employer]: www.cancer.org [place] [employer] of Clinical Oncology: www.cancer.net National Cancer [place]: www.cancer.gov Contact a health care provider if: [...] provider. Document Revised: 07/19/2021 Document Reviewed: 07/19/2021 [employer] Patient Education 2022 [employer]. Follow Up Care 11/21/2021 08:58:33 With:NIRU AVINA, David Rangel, URL Address: [facility] [address] , [place] [address]- [phone] When: Unknown Comments:1 yr w/ PSA [facility] 03-14-2023 NoteHNO ID: [id number] Author: Willy Reyes MD Service: ? Author [...] by: Willy Reyes MD cc: Mariaelena Bailey, SWITCH HOUSE OPERATOR (DrC) [address] [place] [address] Dr. Soto Portions of the above note extracted and edited from previous visit as well as active information included in the EMR.[facility] 07-17-2022 History of Present illness Narrative* Willy Reyes MD - 07/17/2022 2:55 PM EDT Radiation Oncology - Follow Up Note PATIENT NAME: Loyd Alford PATIENT DIAGNOSIS: Prostate adenocarcinoma, initial PSA 5.5, biopsy [place] score 3 + 3 = 6 (grade [...] by: Willy Reyes MD cc: Mariaelena Bailey, SWITCH HOUSE OPERATOR (DrC) [address] [place] [address] Dr. Soto Portions of the above note extracted and edited from previous visit as well as active information included in the EMR. documented in this encounterC[place] [id number] Nurse Note* Елена Reynolds LPN - 07/17/2022 2:49 PM EDT AUA= 12 [facility] NoteHNO ID: [id number] Author: Willy Reyes MD Service: ? Author [...] by: Willy Reyes MD cc: Mariaelena Bailey, SWITCH HOUSE OPERATOR (DrC) [address] [place] [address] Dr. Soto Portions of the above note extracted and edited from previous visit as well as active information included in the EMR.[facility] 11-21-2021 Hospital Discharge instructions Patient Education 11/21/2021 [...] including vitamins, herbs, eye drops, creams, and jfrw-pqs-gzyzuyj medicines. This also includes: ?Medicines to assist [...] 05/25/2005 Document Revised: 04/04/2018 Document Reviewed: 01/27/2018 [employer] Patient Education 2020 [employer]. Follow Up Care 02/21/2021 09:05:23 With:Derek Soto Jr., MD, URO Address: [facility] [address], [place] [address]- When:Within 1 Year(s) Comments:w/Mitzy tam [facility] evaluation + Plan note Future Appointments Appointment Date:11/27/2022 08:00:00 AM Scheduled Provider:Derek Soto Jr., MD Location:[facility] Appointment Type:URO Office Visit [facility] evaluation + Plan note Future Appointments Appointment Date:12/06/2023 08:15:00 AM Scheduled Provider:David CARNEY MD Location:[facility] Appointment Type:URO Office Visit Diagnostic Tests Pending * PSA Total 12/03/22 [facility] evaluation + Plan note Future Appointments Appointment Date:12/11/2024 08:00:00 AM Scheduled Provider:David CARNEY MD Location:[facility] Appointment Type:URO Office Visit Diagnostic Tests Pending * PSA Total 11/03/24 [facility] evaluation note* Diagnosis Malignant neoplasm of prostate (HCC)- Primary Malignant neoplasm of prostate [facility] Primary hypertension (CMS/HCC)- Primary Unspecified essential hypertension Malignant neoplasm of prostate (CMS/HCC) Malignant neoplasm of prostate Overweight (BMI 25.0-29.9) Overweight Primary hypertension (CMS/HCC)- Primary Unspecified essential hypertension Malignant neoplasm of prostate (CMS/HCC) Malignant neoplasm of prostate Overweight (BMI 25.0-29.9) Overweight Encounter for wellness examination- Primary Primary hypertension (CMS/HCC) Unspecified essential hypertension Benign prostatic hyperplasia without urinary obstruction 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 Malignant neoplasm of prostate (CMS/HCC) Malignant neoplasm of prostate Overweight (BMI 25.0-29.9) Overweight [facility] Primary hypertension (CMS/HCC)- Primary Unspecified essential hypertension Malignant neoplasm of prostate (CMS/HCC) Malignant neoplasm of prostate Overweight (BMI 25.0-29.9) Overweight Primary hypertension (CMS/HCC)- Primary Unspecified essential hypertension Malignant neoplasm of prostate (CMS/HCC) Malignant neoplasm of prostate Overweight (BMI 25.0-29.9) Overweight Encounter for wellness examination- Primary Primary hypertension (CMS/HCC) Unspecified essential hypertension Benign prostatic hyperplasia without urinary obstruction 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 Malignant neoplasm of prostate (CMS/HCC) Malignant neoplasm of prostate Overweight (BMI 25.0-29.9) Overweight Primary hypertension (CMS/HCC) Unspecified essential hypertension [facility] - Reported* Type Description Date Medical History HTN (hypertension) Medical History BPH (benign prostatic hyperplasi a) Medical History Prostate cancer Surgical History radiatin see implant to [facility] Other Hospital course Narrative No data available for this section [facility] progress note No data available for this section [facility] Summary Purpose Family History No Family History Records FoundNo Family History Records FoundNo Family History Records Found No data available for this section No Family History Records FoundNo Family History [...] or prosecute any alcohol or drug abuse patient.[facility] the event this information is protected by the Federal Confidentiality of Alcohol and Drug Abuse Patient Records regulations: The Federal rules restrict any use of the information to criminally investigate or prosecute any alcohol or drug abuse patient.[facility] Care Team (unrecognized sect ion and content) Conservation Enforcement Officer Relationship Specialty Start Date End Date Mariaelena Bailey, SWITCH HOUSE OPERATOR [address] [place] [address] PCP - General Family Medicine 06/15/20 Conservation Enforcement Officer Relationship Specialty Start Date End Date William Ruby MD [address] [place] [phone] PCP - General Family Medicine 10/24/23 Mariaelena Bailey NP [address] [place] [phone] Nurse Practitioner Family Medicine 02/03/23 Mariaelena Bailey NP [address] [place] [phone] Nurse Practitioner Family Medicine 10/24/23 Conservation Enforcement Officer Relationship Specialty Start Date End Date William Ruby MD [address] [place] [phone] PCP - General Family Medicine 10/24/23 Mariaelena Bailey NP [address] [place] [phone] Nurse Practitioner Family Medicine 02/03/23 Mariaelena Bailey NP [address] [place] [phone] Nurse Practitioner Family Medicine 10/24/23 Conservation Enforcement Officer Relationship Specialty Start Date End Date William Ruby MD [address] [place] [phone] PCP - General Family Medicine 10/24/23 Mariaelena Bailey NP [address] [place] [phone] Nurse Practitioner Family Medicine 02/03/23 Mariaelena Bailey NP [address] [place] [address] Nurse Practitioner Family Medicine 10/24/23 (unrecognized sect ion and content) No Status Records FoundNo Status Records FoundNo Status Records FoundNo Status Records FoundNo Status Records Found INFORMATION SOURCE (unrecogn ized section and content) DATE CREATED AUTHOR 03/04/2022 [facility] DATE CREATED AUTHOR AUTHOR'S ORGANIZ ATION 01/11/2023 [facility] DATE CREATED AUTHOR AUTHOR'S ORGANIZ ATION 06/14/2023 [facility] DATE CREATED AUTHOR AUTHOR'S ORGANIZ ATION 12/08/2023 [facility] DATE CREATED AUTHOR AUTHOR'S ORGANIZ ATION 04/26/2024 [facility] EPIC Reason for Visit (unrecogniz ed section and content) Reason Comments Prostate Cancer Reason Comments Hypertension FOR RECORDS PERTAINING TO PATIENTS WHO ARE [...] BE BASED ON THE PRIMARY CLINICAL RECORDS. [employer] provides no warranty or guarantee of the accuracy or completeness of information in this document.
[2024-06-24 10:14] LABS: Bilirubin Urine NEGATIVE (NEGATIVE); Blood Urine NEGATIVE (NEGATIVE); Clarity Urine CLEAR (CLEAR); Color Urine LT. YELLOW (YELLOW); Glucose Urine UA NEGATIVE (NEGATIVE); Ketones Urine NEGATIVE (NEGATIVE); Leukocyte Esterase Urine NEGATIVE (NEGATIVE); Nitrite Urine NEGATIVE (NEGATIVE); Protein Urine NEGATIVE (NEG/TRACE); Specific Gravity Urine 1.015 (1.005-1.025); Urobilinogen Urine 0.2 EU/dL (0.2-1.0)
[2024-06-24 10:15] LABS: Basophils Percent Auto 0.5 % (0.2-2.0); Eosinophils Absolute Auto 0.6 10^3/uL (0.0-0.7); Eosinophils Percent Auto 7.3 % (0.9-7.0); Hematocrit 48.4 % (42.0-54.0); Hemoglobin 15.8 g/dL (14.0-18.0); Immature Granulocytes Abs Auto 0.02 10^3/uL (0.00-0.03); Immature Granulocytes Pct Auto 0.2 % (0.0-0.5); Lymphocytes Absolute Auto 1.1 10^3/uL (1.2-3.8); Lymphocytes Percent Auto 12.5 % (20.5-60.0); Mean Corpuscular HGB Conc 32.6 g/dL (29.9-35.2); Mean Corpuscular Volume 94.9 fL (80.0-94.0); Mean Platelet Volume 9.6 fL (9.5-13.5); Monocytes Absolute Auto 0.9 10^3/uL (0.3-0.8); Monocytes Percent Auto 10.3 % (1.7-12.0); Neutrophils Percent Auto 69.2 % (43.0-75.0); Platelet Count 224 10^3/uL (150-450); Red Cell Distribution Width 12.1 % (11.0-15.0); White Blood Count 8.7 10^3/uL (4.0-11.0)
[2024-06-24 10:21] LABS: Bacteria Urine TRACE #/HPF (NONE SEEN); Mucus Urine TRACE (NONE SEEN); RBC Urine NONE SEEN #/HPF (0-2); WBC Urine 0-2 #/HPF (NONE SEEN)
[2024-06-24 10:22] LABS: Cast Seen? NONE SEEN #/LPF (NONE SEEN); Crystals Seen? None Seen #/HPF (None Seen); Squamous Epithelial Cell Urine NONE SEEN #/LPF (NONE/RARE)
[2024-06-24 10:37] LABS: Alanine Aminotransferase 20 U/L (16-63); Albumin Level 3.7 g/dL (3.4-5.0); Alkaline Phosphatase 98 U/L (46-116); Anion Gap 12.4; Aspartate Amino Transferase 18 U/L (15-37); BUN Creatinine Ratio 15.4; Bilirubin Total 0.9 mg/dL (0.2-1.0); Calcium 9.2 mg/dL (8.5-10.1); Carbon Dioxide 28.7 mmol/L (21.0-32.0); Chloride 103 mmol/L (98-107); Chol HDL Ratio 2.9; Cholesterol 223 mg/dL (<=200); Estimated GFR (African America >60 (>=60 mL/min/1.73m^2); Estimated GFR (Non-African Ame 59 (>=60 mL/min/1.73m^2); Globulin 3.6 g/dL; Glucose 96 mg/dL (74-106); HDL Cholesterol 76 mg/dL (40-60); Potassium 4.1 mmol/L (3.5-5.1); Sodium 140 mmol/L (136-145); Total Protein 7.3 g/dL (6.4-8.2); Triglycerides 90 mg/dL (<=150)
[2024-06-24 10:38] LABS: Microalbumin Urine Random 6.8 mg/dL (<=30.0)
== END 2024-06-24 09:56 | disposition home or self-care (01) ==
LOC: LAB 09:57
PROVIDERS: PCP Nurse Practitioner; Visit Provider Nurse Practitioner
DX: Z00.00 Encounter for general adult medical examination without abnormal findings (principal)
CPT/HCPCS: 36415; 80053; 80061; 81001; 82043; 85025

== ENCOUNTER 2025-01-20 07:33 | Outpatient (OUT) | payer BC, SELFPAY ==
--- OUTSIDE RECORDS SUMMARY | 2025-01-20 07:37 | XMS_ITS | CCD ---
Author Organization [facility] Care Team Providers Care Dump Grounds Checker Name Role Phone Mariaelena Bailey Primary Care Provider [phone] MARIAELENA BAILEY Primary Care Physician AICHALEXAZ, FEATHER MAKER MARIAELENA Admitting Unavailable AICHHOLZ, FEATHER MAKER MARIAELENA Primary Care Unavailable AICHHOLZ, FEATHER MAKER MARIAELENA Consulting Unavailable AICHHOLZ, FEATHER MAKER MARIAELENA Attending Unavailable AICHHOLZ, FEATHER MAKER MARIAELENA Admitting Unavailable AICHHOLZ, FEATHER MAKER MARIAELENA Primary Care Unavailable AICHHOLZ, FEATHER MAKER MARIAELENA Consulting Unavailable AICHHOLZ, FEATHER MAKER MARIAELENA Attending Unavailable AICHHOLZ, FEATHER MAKER MARIAELENA Admitting Unavailable AICHHOLZ, FEATHER MAKER MARIAELENA Primary Care Unavailable AICHHOLZ, FEATHER MAKER MARIAELENA Consulting Unavailable AICHHOLZ, FEATHER MAKER MARIAELENA Attending Unavailable AICHHOLZ, FEATHER MAKER MARIAELENA Primary Care Unavailable DR TJ REYES Admitting Unavailable DR TJ REYES Consulting Unavailable DR TJ REYES Attending Unavailable Aichholz DAVID, Mariaelena Renea Primary Care Provider Willy REYES Referring Unavailable Willy REYES Attending Unavailable AICHHOLOlive, MARIAELENA RENEA Primary Care Unavailable AICHHOLOlive, MARIAELENA RENEA Primary Care Unavailable Willy REYES Referring Unavailable Willy REYES Attending Unavailable AICHHOLZ, MARIAELENA RNEEA Primary Care Unavailable AICHHOLZ, MARIAELENA RENEA Primary Care Unavailable Willy REYES Referring Unavailable Reynolds, Meg Unavailable Reynolds, Meg Attending Unavailable Reynolds, Meg Admitting Unavailable Aichholz SENIOR SPEECH PATHOLOGIST, Mariaelena Unavailable William Ruby MD Primary Care Provider Leo SENIOR SPEECH PATHOLOGIST, Mariaelena Unavailable Leo SENIOR SPEECH PATHOLOGIST, Mariaelena Unavailable MARIAELENA BAILEY Attending Unavailable MARIAELENA BAILEY Attending Unavailable David CARNEY Attending Unavailable David CARNEY [...] Oral, Daily Start Date: 02/21/21 Status: Ordered sildenafil 100 mg oral tablet (11 sources) Phosphodiesterase 5 Inhibitor Start: 07-31-2022 sildenafil (Viagra) 100 MG tablet TAKE 1 TABLET BY MOUTH 1 HOUR BEFORE SEXUAL ACTIVITY. 07/31/2022 Active Start: 02-21-2021 Viagra 100 mg Tab 100 mg = 1 tab(s), Oral, As Directed, 1 hour before sexual activity., # 30 tab(s), Refills(s) 2, Pharmacy: [facility] 594, 188, cm, 02/21/21 8:28:00 EDT, Height/Length Dosing, 95.1, kg, 02/21/21 8:28:00 EDT, Weight Dosing Start Date: 02/21/21 Status: Ordered tamsulosin hydrochloride 0.4 mg oral capsule (13 sources) alpha-Adrenergic Aden Start: 12-06-2023 take 1 capsule by mouth twice daily tamsulosin 0.4 mg Cap 0.4 mg = 1 cap(s), Oral, BID, # 60 cap(s), Refills(s) 11, Pharmacy: [facility] 1622, 188, cm, 12/06/23 8:26:00 EDT, Height/Length Dosing, 92.4, kg, 12/06/23 8:26:00 EDT, Weight Dosing Start Date: 12/06/23 Status: Ordered Start: 09-10-2022 take 1 capsule by mo [facility] every twenty-four hours in the morning tamsulosin (Flomax) 0.4 MG 24 hr capsule Take 0.4 mg by mouth in the morning. 09/10/2022 Active Start: 01-17-2021 End: 11-28-2023 take 1 capsule by mouth once daily tamsulosin 0.4 mg C ap 0.4 mg = 1 cap(s), Oral, Daily, X 90 day(s), # 90 cap(s), Refills(s) 3, Pharmacy: [facility] #[id number], 188, cm, 12/03/22 11:35:00 EDT, Height/Length Dosing, 94, kg, 12/03/22 11:35:00 EDT, Weight Dosing Start Date: 12/03/22 Stop Date: 11/28/23 Status: Ordered Comment on above: Take 1 capsule by mo uth once daily. Completed/Discontinued Medications Medication Drug Class(es) Dates Sig (Normalized) Sig (Original) docosahexaenoic acid/epa (FISH OIL ORAL) (1 source) docosahexaenoic acid/epa (FISH OIL ORAL) Take by mouth. 0 Active Comment on above: Take by mouth. lisinopril 20 mg oral tablet (16 sources) Angiotensin Converting Enzyme Inhibitor Start: 03-03-2024 End: 01-19-2025 take 1 tablet by mouth once daily lisinopril 20 MG tablet Indications: Primary hypertension Take 1 tablet (20 mg) by mouth Daily 90 tablet 1 06/15/2024 10/21/2024 Discontinued (Reorder) Start: 04-19-2020 take 1 tablet by kristen th once daily lisinopril 10 mg Tab 10 mg = 1 tab(s), Oral, Daily Start Date: 05/04/20 Status: Ordered take 1 tablet by kristen th once daily Lisinopril 20 MG TAKE 1 TABLET BY MOUTH EVERY DAY Oral for 90 Days Active Comment on above: Take 10 mg by mouth once daily. Toradol 30 mg/ml (1 source) Start: 04-22-2023 Toradol 30 mg/ ml Apr, 60 mg Problems Active Problems Problem Classification Problem Date Documented Da te Episodic/Chronic Cancer of prostate (20 sources) Malignant neoplasm of prostate; Translations: [Malignant tumor of prostate] Onset: 07-17-2021 Chronic Essential hypertension (16 sources) Hypertensive disorder; Translations: [Essential (primary) hypertension] Onset: 04-11-2023 2020 Chronic Genitourinary symptoms and ill-defined conditions (20 sources) Dysuria; Translations: [Loyd hematuria] Onset: 04-11-2023 Resolved: 04-22-2024 09-20-2020 Episodic Hyperplasia of prostate (19 sources) Benign prostatic hypertrophy with outflow obstruction; Translations: [Benign prostatic hyperplasia with lower urinary tract symptoms] Onset: 11-21-2021 Chronic Other diseases of kidney and ureters (1 source) Urinary tract obstruction; Translations: [Other obstructive and reflux uropathy] Onset: 11-21-2021 Episodic Other male genital disorders (13 sources) Erectile dysfunction following prostate brachytherapy; Translations: [...] Documented Da te Episodic/Chronic Cancer of prostate (10 sources) Personal history of malignant neoplasm of prostate; Translations: [History of malignant neoplasm of prostate] Onset: 12-06-2023 Episodic Coagulation and hemorrhagic disorders (1 source) Spontaneous ecchymoses; Translations: [SPONTANEOUS ECCHYMOSES] Onset: 08-23-2021 Episodic Other male genital disorders (11 sources) Hemospermia; Translations: [Hematospermia] Onset: 04-11-2023 05-10-2020 Episodic Other nutritional; endocrine; and metabolic disorders (10 sources) Body mass index 25-29 - overweight; Translations: [Overweight] Onset: 04-16-2023 04-16-2023 Episodic Results Test Name Value Interpretation Reference Range Facility ALL CBC WITH AUTO DIFFon BASOPHILS ABSOLUTE AUTO 0 [facility] Basophils/100 WBC (Bld) 0.5 % 0.2 - 2.0 % [facility] Eosinophils/100 WBC (Bld) 7.3 % High 0.9 - 7.0 % [facility] Erythrocyte distribution width (RBC) [Ratio] 12.1 % 11.0 - 15.0 % [facility] Hematocrit (Bld) [Volume fraction] 48.4 % 42.0 - 54.0 % [facility] Hemoglobin (Bld) [Mass/Vol] 15.8 g/dL 14.0 - 18.0 g/dL [facility] IMMATURE GRANULOCYTES ABS AUTO 0.02 [facility] Immature granulocytes/100 WBC (Bld) 0.2 % 0.0 - 0.5 % [facility] LYMPHOCYTES ABSOLUTE AUTO 1.1 Low [facility] Lymphocytes/100 WBC (Bld) 12.5 % Low 20.5 - 60.0 % [facility] MCH (RBC) [Entitic mass] 31 pg 25.9 - 34.0 pg [facility] MCHC (RBC) [Mass/Vol] 32.6 g/dL 29.9 - 35.2 g/dL [facility] MCV (RBC) [Entitic vol] 94.9 fL High 80.0 - 94.0 fL [facility] MONOCYTES ABSOLUTE AUTO 0.9 High [facility] Monocytes/100 WBC (Bld) 10.3 % 1.7 - 12.0 % [facility] NEUTROPHILS ABSOLUTE AUTO 6 [facility] Neutrophils/100 WBC (Bld) 69.2 % 43.0 - 75.0 % [facility] Platelet mean volume (Bld) [Entitic vol] 9.6 fL 9.5 - 13.5 fL [facility] TBH EO # 0.6 [facility] TBH PLT 224 [facility] TB RBC 5.1 [facility] TB WBC 8.7 [facility] HMHP URINALYSIS, WITH MICROS COPICon 06-24-2024 BACTERIA URINE TRACE Abnormal NONE SEEN #/HPF [facility] BILIRUBIN URINE Negative NEGATIVE [facility] BLOOD URINE Negative NEGATIVE [facility] CAST SEEN? NONE SEEN NONE SEEN #/LPF [facility] Clarity (U) CLEAR CLEAR [facility] Color (U) LT. YELLOW [facility]LLOW [facility] CRYSTALS SEEN? None Seen None Seen #/HPF [facility] GLUCOSE URINE UA Negative NEGATIVE mg/dL [facility] Ketones Ql (U) Negative NEGATIVE mg/dL [facility] Leukocyte esterase Test strip Ql (U) Negative NEGATIVE [facility] MUCUS URINE TRACE Abnormal NONE SEEN [facility] NITRITE URINE Negative NEGATIVE [facility] pH (U) 6.0 [pH] 5.0 - 9.0 [facility] PROTEIN URINE Negative NEG/TRACE mg/dL [facility] SPECIFIC GRAVITY URINE 1.015 1.005 - 1.025 [facility] SQUAMOUS EPITHELIAL CELL URINE NONE SEEN NONE/RARE #/LPF [facility] TBH RBC NONE SEEN [facility] TBH WBC 0-2 Abnormal NONE SEEN #/HPF [facility] UROBILINOGEN URINE 0.2 EU/dL 0.2 - 1.0 EU/dL [facility] No Panel Informationon 06-24 Interpretation and review of laboratory results Abnormal [facility] Ambulatory Visit Summaryon 0 12-06-2023 Ambulatory Visit [...] David CARNEY MD Where: [facility] [address] [place] [address] [place] [address]- You Need to Schedule the Following Appointments Follow Up with David CARNEY MD, ISIDRO When: Where: [address] [place] [address]- Medications What How Much When Instructions Changed tamsulosin (tamsulosin 0.4 mg Cap) 1 Capsules By Mouth 2 times a day Pickup at [facility] Unchanged sildenafil (Viagra 100 mg [...] physician if questions or concerns Pharmacy Information [facility]: [address] [place], [place] [id number] [phone] Allergies No Known Allergies Problems Ongoing - [...] feel the (more content not included)... Normal [facility] Urology Office/Clinic Noteon 12-06-2023 Urology Office/Clinic Note [...] 1.34 07/24/23 - 0.91 11/28/23 - 0.55 Pawel 6 (3+3) with 4 HGPINs. Brachytherapy 08/31/2020 [...] Contact Information NIRU AVINA, David Rangel, URL [address] [place] [address]- Additional Instructions: 1 year w/ PSA Patient [...] Risk, 02/21/2021 Never (more content not included)... Normal [facility] Comment on above: Result Comment: Elec tronically Signed By: David CARNEY MD\.br\Date and Time Signed: 12/06/23 08:42 EDT\.br\Electronically Co-Signed By: Karen Locke\.br\Date and Time Co-Signed: 12/06/23 08:39 EDT\.br\Electronically Co-Signed By: Karen Locke\.br\Date and Time Co-Signed: 12/06/23 08:40 EDT XR ankle LT min 3V*on 2022 XR ankle LT min 3V* [facility] [employer] Other XR ankle LT min 3V* [facility] [employer] Other XR ankle LT min 3V* [address] [facility] [employer] Other XR ankle LT min 3V* [place] [address] [place] [employer] Other XR ankle LT min 3V* XRay Report [employer] Other XR ankle LT min 3V* Signed [employer] Other XR ankle LT min 3V* Patient: Loyd Alford MR#: [id number] [employer] Other XR ankle LT min 3V* : 1960 Acct:[id number] [employer] Other XR ankle LT min 3V* Age/Sex: 62 / M ADM Date: 04/22/23 [employer] Other XR ankle LT min 3V* Loc: XDUCLY Room: Type: REG CLI [employer] Other XR ankle LT min 3V* Attending Dr: Meg Oakes [employer] Other XR ankle LT min 3V* Copies to: Meg Reynolds NP [employer] Other XR ankle LT min 3V* Ordering Provider: Meg Reynolds NP [employer] Other XR ankle LT min 3V* Date of Service: 04/22/23 [employer] Other XR ankle LT min 3V* XR/XR ankle LT min 3V*: M25.572 [employer] Other XR ankle LT min 3V* 3 views left ankle plain film [employer] Other XR ankle LT min 3V* COMPARISON: None [employer] Other XR ankle LT min 3V* HISTORY: Left ankle pain and swelling for 2 days. [employer] Other XR ankle LT min 3V* ACUTE FINDINGS: None [employer] Other XR ankle LT min 3V* DEGENERATIVE CHANGE: Minor marginal spurring. Tana deformity which may be incidental. Chronic [employer] Other XR ankle LT min 3V* bony densities of the superior portion of the talar head. Adjacent soft tissue prominence. [employer] Other XR ankle LT min 3V* SOFT TISSUE FINDINGS: Diffuse soft tissue prominence [employer] Other XR ankle LT min 3V* JOINT EFFUSION: None [employer] Other XR ankle LT min 3V* POSTOP CHANGES: None [employer] Other XR ankle LT min 3V* BONE MINERALIZATION: Adequate [employer] Other XR ankle LT min 3V* XR/XR ankle LT min 3V* [employer] Other XR ankle LT min 3V* IMPRESSION: Degenerative change. Soft tissue prominence [employer] Other XR ankle LT min 3V* Impression dictated by: Chao Wallace M.D.04/22/2023 9:57 AM [employer] Other XR ankle LT min 3V* Dictation Location: RADIO-PC-12 [employer] Other XR ankle LT min 3V* Transcribed By: PWS 04/22/23 0957 [employer] Other XR ankle LT min 3V* Dictated By: Chao Wallace DO 04/22/23 0954 [employer] Other XR ankle LT min 3V* Signed By: [employer] Other XR ankle LT min 3V* 04/22/23 0951 [employer] Other XR ankle LT min 3V* [facility] [place] [address] [place] [address] XRay Report Signed Patient: Loyd Alford MR#: [id number] : 1960 Acct:[id number] Age/Sex: 62 / M ADM Date: 04/22/23 Loc: XDUC Room: Type: [facility] Attending Dr: Meg Reynolds SENIOR SPEECH PATHOLOGIST Copies to: Meg Reynolds SENIOR SPEECH PATHOLOGIST Ordering Provider: Meg Reynolds NP Date of [...] Chao Wallace M.D.04/22/2023 9:57 AM Dictation Location: [employer] Transcribed By: [facility] 04/22/23 0957 Dictated By: Chao Wallace DO 04/22/23 0954 Signed By: 04/22/2357 [facility] Telephone (WVCJENNYA) LOYD ALFORD ([id number]) 1960 M Date Time Provider Department 01/10/23 Willy REYES During your visit today, we recorded the following information about you: Rajeev Zarate RN 01/10/2023 10:15 AM Signed Pt called [...] PM Signed Call placed to notify pt. Carson- please cancel follow up. ESPINOZA Billingsley Tiffany [...] Encounter Status:Closed by RAJEEV ZARATE on 01/10/23 [facility] CNOVon 07-17-2022 CNOV Office Visit (RADTSA ) LOYD ALFORD ([id number]) 1960 M Date Time Provider Department 07/17/22 [...] DIAGNOSIS: Prostate adenocarcinoma, initial PSA 5.5, biopsy [place] score 3 + 3 = 6 (grade [...] by: Willy Reyes MD cc: Mariaelena Bailey, FEATHER MAKER (DrC) [address] [place] [address] Dr. Soto Portions of the above note extracted and edited from previous visit as well as active information included in the EMR. Referring Provider: Willy REYES [[id number]] Allergies As of Date: 07/17/2022 (No Known Allergies) Date Reviewed: 07/17/2022 Reviewed by: Елена Reynolds LPN - Fully Assessed Reason for Visit: Prostate Cancer [590] Primary Visit Diagnosis:Malignant neoplasm of prostate (HCC) [C61] Order(s):PSA/PROSTSPECAG DIAG [SQPSA] Order #: [id number] FUTURE Prescriptions as of 07/20/2022 - tamsulosin [...] for Encounter Date Provider Department Center 07/17/2022 [id number] REYES Encounter Status:Closed by Willy REYES on 07/20/22 Normal [facility] PSA SerPl-mCncon 07-12-2022 Prostate specific Ag [Mass/Vol] 1.34 ng/mL Normal <2.60 [facility] Comment on above: Order Comment: Speci men Type: BLOOD SPECIMEN Ordering Facility: [facility] Address: [address] [place] [address] Result Comment: Jace rogers PSA test methodology used is the Electrochemiluminescence Immunoassay by [employer]. Total PSA values by differing methodologies cannot be interchanged. Performed By: #### 2 [id number] #### [facility] CLIA [id number] [address] [place] [address] [place] CBC AUTO DIFFon 02-27-2022 BASO # 0.0 103/ul Normal 0.0-0.1 [facility] Comment on above: Performed By: #### C BC #### [facility] [address] [place] [address] Dr. Chapo Brewer Basophils/100 WBC (Bld) 0.6 % Normal 0.2-2.0 [facility] Comment on above: Performed By: #### C BC #### [facility] [address] [place] [address] Dr. Chapo Brewer EO # 0.3 103/ul Normal 0.0-0.7 [facility] Comment on above: Performed By: #### C BC #### [facility] [address] [place] [address] Dr. Chapo Brewer Eosinophils/100 WBC (Bld) 5.6 % Normal 0.9-7.0 [facility] Comment on above: Performed By: #### C BC #### [facility] [address] [place] [address] Dr. Chapo Brewer Erythrocyte distribution width (RBC) [Ratio] 12.8 % Normal 11.0-15.0 [facility] Comment on above: Performed By: #### C BC #### [facility] [address] [place] [address] Dr. Chapo Brewer Hematocrit (Bld) [Volume fraction] 45.5 % Normal 42.0-54.0 [facility] Comment on above: Performed By: #### C BC #### [facility] [address] [place] [address] Dr. Chapo Brewer Hemoglobin (Bld) [Mass/Vol] 14.6 g/dL Normal 14.0-18.0 [facility] Comment on above: Performed By: #### C BC #### [facility] [address] [place] [address] Dr. Chapo Brewer IG # 0.01 10e3/ul Normal 0.00-0.03 [facility] Comment on above: Performed By: #### C BC #### [facility] [address] [place] [address] Dr. Chapo Brewer IG % 0.2 % Normal 0.0-0.5 [facility] Comment on above: Performed By: #### C BC #### [facility] [address] [place] [address] Dr. Chapo Brewer LYMPH # 1.2 103/ul Normal 1.2-3.8 [facility] Comment on above: Performed By: #### C BC #### [facility] [address] [place] [address] Dr. Chapo Brewer Lymphocytes/100 WBC (Bld) 23.1 % Normal 20.5-60.0 [facility] Comment on above: Performed By: #### C BC #### [facility] [address] [place] [address] Dr. Chapo Brewer MANUAL DIFF REQ NO Normal [facility] Comment on above: Performed By: #### C BC #### [facility] [address] [place] [address] Dr. Chapo Brewer MCH (RBC) [Entitic mass] 30.5 pg Normal 25.9-34.0 [facility] Comment on above: Performed By: #### C BC #### [facility] [address] [place] [address] Dr. Chapo Brewer MCHC (RBC) [Mass/Vol] 32.1 g/dL Normal 29.9-35.2 [facility] Comment on above: Performed By: #### C BC #### [facility] [address] [place] [address] Dr. Chapo Brewer MCV (RBC) [Entitic vol] 95.0 fL Critically high 80.0-94.0 [facility] Comment on above: Performed By: #### C BC #### [facility] [address] [place] [address] Dr. Chapo Brewer MONO # 0.6 103/ul Normal 0.3-0.8 [facility] Comment on above: Performed By: #### C BC #### [facility] [address] [place] [address] Dr. Chapo Brewer Monocytes/100 WBC (Bld) 11.3 % Normal 1.7-12.0 [facility] Comment on above: Performed By: #### C BC #### [facility] [address] [place] [address] Dr. Chapo Brewer NEUT # 2.9 103/ul Normal 1.4-6.5 [facility] Comment on above: Performed By: #### C BC #### [facility] [address] [place] [address] Dr. Chapo Brewer Neutrophils/100 WBC (Bld) 59.2 % Normal 43.0-75.0 [facility] Comment on above: Performed By: #### C BC #### [facility] [address] [address] [address] Chapo Brewer Platelet mean volume (Bld) [Entitic vol] 9.4 fL Critically low 9.5-13.5 [facility] Comment on above: Performed By: #### C BC #### [facility] [address] [place] [address] Dr. Chapo Brewer PLT 217 103/ul Normal 150-450 [facility] Comment on above: Performed By: #### C BC #### [facility] [address] [place] [address] Dr. Chapo Brewer RBC 4.79 106/ul Normal 4.70-6.10 [facility] Comment on above: Performed By: #### C BC #### [facility] [address] [place] [address] Dr. Chapo Brewer WBC 5.0 103/ul Normal 4.0-11.0 [facility] Comment on above: Performed By: #### C BC #### [facility] [address] [place] [address] Dr. Chapo Brewer LIPID PROFILEon 02-27-2022 CHOL-HDL RATIO NORM SEE BELOW Normal [facility] Comment on above: Result Comment: 3.3 - 4.4 LOW RISK 4.4 - 7.1 AVERAGE RISK 7.1 - 11.0 MODERATE RISK >11.0 HIGH RISK Performed By: #### C MP, LIPID #### [facility] [address] [place] [address] Dr. Chapo Brewer Cholesterol [Mass/Vol] 195 mg/dL Normal <=200 [facility] Comment on above: Performed By: #### C MP, LIPID #### [facility] [address] [place] [address] Dr. Chapo Brewer Cholesterol in HDL [Mass/Vol] 75 mg/dL Critically high 40-60 [facility] Comment on above: Performed By: #### C MP, LIPID #### [facility] [address] [place] [address] Dr. Chapo Brewer Cholesterol in LDL [Mass/Vol] 102.6 mg/dL Normal [facility] Comment on above: Performed By: #### C MP, LIPID #### [facility] [address] [place] [address] Dr. Chapo Brewer Cholesterol.total /Cholesterol in HDL [Mass ratio] 2.6 {ratio} Normal [facility] Comment on above: Performed By: #### C MP, LIPID #### [facility] [address] [address] [address] Chapo Brewer HDL NORMAL > or = 60 mg/dl - LO W CARDIOVASCULAR RISK <40 mg/dl - HIGH CARDIOVASCULAR RISK Normal [facility] Comment on above: Performed By: #### C MP, LIPID #### [facility] [address] [place] [address] Dr. Chapo Brewer LDL CALC NORMAL SEE BELOW Normal [facility] Comment on above: Result Comment: <100 mg/dl OPTIMAL 100 - 129 mg/dl NEAR OR ABOVE OPTIMAL 130 - 159 mg/dl BORDERLINE HIGH 160 - 189 mg/dl HIGH >190 mg/dl VERY HIGH Performed By: #### C MP, LIPID #### [facility] [address] [address] [address] Chapo Brewer Triglyceride [Mass/Vol] 87 mg/dL Normal <=150 [facility] Comment on above: Performed By: #### C MP, LIPID #### [facility] [address] [place] [address] Dr. Chapo Brewer VLDL CALC 17.4 mg/dL Normal [facility] Comment on above: Performed By: #### C MP, LIPID #### [facility] [address] [place] [address] Dr. Chapo Brewer PROF 14(COMP METB)on 022 Albumin [Mass/Vol] 3.5 g/dL Normal 3.4-5.0 [facility] Comment on above: Performed By: #### C MP, LIPID #### [facility] [address] [place] [address] Dr. Chapo Brewer Albumin/Globulin [Mass ratio] 0.9 {ratio} Normal [facility] Comment on above: Performed By: #### C MP, LIPID #### [facility] [address] [address] [address] Chapo Brewer ALP [Catalytic activity/Vol] 88 U/L Normal 46-116 [facility] Comment on above: Performed By: #### C MP, LIPID #### [facility] [address] [address] [address] Chapo Brewer ALT [Catalytic activity/Vol] 20 U/L Normal 16-63 [facility] Comment on above: Performed By: #### C MP, LIPID #### [facility] [address] [address] [address] Chapo Brewer Anion gap [Moles/Vol] 11.6 mmol/L Normal [facility] Comment on above: Performed By: #### C MP, LIPID #### [facility] [address] [place] [address] Dr. Chapo Brewer AST [Catalytic activity/Vol] 17 U/L Normal 15-37 [facility] Comment on above: Performed By: #### C MP, LIPID #### [facility] [address] [address] [address] Chapo Brewer Bilirubin [Mass/Vol] 0.7 mg/dL Normal 0.2-1.0 [facility] Comment on above: Performed By: #### C MP, LIPID #### [facility] [address] [place] [address] Dr. Chapo Brewer Calcium [Mass/Vol] 8.7 mg/dL Normal 8.5-10.1 [facility] Comment on above: Performed By: #### C MP, LIPID #### [facility] [address] [address] [address] Chapo Brewer Chloride [Moles/Vol] 104 mmol/L Normal 98-107 [facility] Comment on above: Performed By: #### C MP, LIPID #### [facility] [address] [address] [address] Chapo Brewer CO2 [Moles/Vol] 29.2 mmol/L Normal 21.0-32.0 [facility] Comment on above: Performed By: #### C MP, LIPID #### [facility] [address] [address] [address] Chapo Brewer Creatinine [Mass/Vol] 1.12 mg/dL Normal 0.70-1.30 [facility] Comment on above: Performed By: #### C MP, LIPID #### [facility] [address] [place] [address] Dr. Chapo Brewer EGFR-AF CZECH >60 Normal >=60 [facility] Comment on above: Performed By: #### C MP, LIPID #### [facility] [address] [address] [address] Chapo Brewer EGFR-NON AF CZECH >60 Normal >=60 [facility] Comment on above: Performed By: #### C MP, LIPID #### [facility] [address] [place] [address] Dr. Chapo Brewer Globulin (S) [Mass/Vol] 3.8 g/dL Normal [facility] Comment on above: Performed By: #### C MP, LIPID #### [facility] [address] [place] [address] Dr. Chapo Brewer Glucose [Mass/Vol] 92 mg/dL Normal 74-106 [facility] Comment on above: Performed By: #### C MP, LIPID #### [facility] [address] [place] [address] Dr. Chapo Brewer Potassium [Moles/Vol] 4.8 mmol/L Normal 3.5-5.1 [facility] Comment on above: Performed By: #### C MP, LIPID #### [facility] [address] [place] [address] Dr. Chapo Brewer Protein [Mass/Vol] 7.3 g/dL Normal 6.4-8.2 [facility] Comment on above: Performed By: #### C MP, LIPID #### [facility] [address] [place] [address] Dr. Chapo Brewer Sodium [Moles/Vol] 140 mmol/L Normal 136-145 [facility] Comment on above: Performed By: #### C MP, LIPID #### [facility] [id number] Chapo Brewer Urea nitrogen [Mass/Vol] 18.0 mg/dL Normal 7.0-18.0 [facility] Comment on above: Performed By: #### C MP, LIPID #### [facility] [address] [place], [place] [address] Dr. Chapo Brewer Urea nitrogen/Creatini ne [Mass ratio] 16.1 mg/mg Normal [facility] Comment on above: Performed By: #### C MP, LIPID #### [facility] [address] [place], [place] [address] Dr. Chapo JOOVon 01-16-2022 CNOV Office Visit (RADTSA ) LOYD ALFORD ([id number]) 1960 M Date Time Provider Department 01/16/22 [...] by: Willy Reyes MD cc: Mariaelena Bailey, FEATHER MAKER (DrC) [address] [place] [address] Dr. Soto Portions of the above note extracted and edited from previous visit as well as active information included in the EMR. Елена Reynolds LPN 01/16/2022 3:08 PM Signed AUA=12 Referring Provider: Willy REYES [[id number]] Allergies As of Date: 01/16/2022 (No Known Allergies) Date Reviewed: 01/16/2022 Reviewed by: Willy Reyes MD - Fully Assessed Reason for Visit: Prostate Cancer [590] Primary Visit Diagnosis:Malignant neoplasm of prostate (HCC) [C61] Order(s):PSA/PROSTSPECAG DIAG [SQPSA] Order #: [id number] FUTURE Prescriptions as of 01/16/2022 - tamsulosin (FLOMAX) 0.4 mg Take 1 capsule by mouth once daily. - lisinopril (ZESTRIL, PRINIVIL) 10 mg tablet Take 10 mg by mouth once daily. - docosahexaenoic acid/epa (FISH OIL ORAL) Take by mouth. Problem List As Of Date 01/16/2022 Noted Resolved Prostate cancer (HCC) [C61] 07/18/2021 Visit Notes: >> Елена SHANE Reynolds Tue Jan 16, 2022 2:50 PM Status: Signed AUA=12 Disposition: Return in about 6 months (around 07/16/2022). Follow-up and Disposition History for Encounter Date Provider Department Center 01/16/2022 [id number] REYESSITA JAY SHEYLA Encounter Status:Closed by Willy REYES on 01/16/22 Normal [facility] PSA SerPl-mCncon 01-12-2022 Prostate specific Ag [Mass/Vol] 1.69 ng/mL Normal <2.60 [facility] Comment on above: Order Comment: Speci men Type: BLOOD SPECIMEN Ordering Facility: [facility] Address: [address] [place] [address] Result Comment: Jace rogers PSA test methodology used is the Electrochemiluminescence Immunoassay by [employer]. Total PSA values by differing methodologies cannot be interchanged. Performed By: #### 2 857-1 #### [facility] CLIA [id number] [address] [place], [place] [address] [place] CBC AUTO DIFFon 08-17-2021 BASO # 0.0 103/ul Normal 0.0-0.1 [facility] Comment on above: Performed By: #### C BC #### [facility] [address] [place] [address] Dr. Chapo Brewer Basophils/100 WBC (Bld) 0.5 % Normal 0.2-2.0 [facility] Comment on above: Performed By: #### C BC #### [facility] [address] [place] [address] Dr. Chapo Brewer EO # 0.3 103/ul Normal 0.0-0.7 [facility] Comment on above: Performed By: #### C BC #### [facility] [address] [place] [address] Dr. Chapo Brewer Eosinophils/100 WBC (Bld) 4.5 % Normal 0.9-7.0 [facility] Comment on above: Performed By: #### C BC #### [facility] [address] [place] [address] Dr. Chapo Brewer Erythrocyte distribution width (RBC) [Ratio] 12.4 % Normal 11.0-15.0 [facility] Comment on above: Performed By: #### C BC #### [facility] [address] [place] [address] Dr. Chapo Brewer Hematocrit (Bld) [Volume fraction] 44.7 % Normal 42.0-54.0 [facility] Comment on above: Performed By: #### C BC #### [facility] [address] [place] [address] Dr. Chapo Brewer Hemoglobin (Bld) [Mass/Vol] 14.6 g/dL Normal 14.0-18.0 [facility] Comment on above: Performed By: #### C BC #### [facility] [address] [place] [address] Dr. Chapo Brewer IG # 0.02 10e3/ul Normal 0.00-0.03 [facility] Comment on above: Performed By: #### C BC #### [facility] [address] [place] [address] Dr. Chapo Brewer IG % 0.3 % Normal 0.0-0.5 [facility] Comment on above: Performed By: #### C BC #### [facility] [address] [place] [address] Dr. Chapo Brewer LYMPH # 1.0 103/ul Critically low 1.2-3.8 [facility] Comment on above: Performed By: #### C BC #### [facility] [address] [place] [address] Dr. Chapo Brewer Lymphocytes/100 WBC (Bld) 17.2 % Critically low 20.5-60.0 [facility] Comment on above: Performed By: #### C BC #### [facility] [address] [place] [address] Dr. Chapo Brewer MANUAL DIFF REQ NO Normal [facility] Comment on above: Performed By: #### C BC #### [facility] [address] [place] [address] Dr. Chapo Brewer MCH (RBC) [Entitic mass] 31.3 pg Normal 25.9-34.0 [facility] Comment on above: Performed By: #### C BC #### [facility] [address] [place] [address] Dr. Chapo Brewer MCHC (RBC) [Mass/Vol] 32.7 g/dL Normal 29.9-35.2 [facility] Comment on above: Performed By: #### C BC #### [facility] [address] [place] [address] Dr. Chapo Brewer MCV (RBC) [Entitic vol] 95.7 fL Critically high 80.0-94.0 [facility] Comment on above: Performed By: #### C BC #### [facility] [address] [place] [address] Dr. Chapo Brewer MONO # 0.6 103/ul Normal 0.3-0.8 [facility] Comment on above: Performed By: #### C BC #### [facility] [address] [place] [address] Dr. Chapo Brewer Monocytes/100 WBC (Bld) 10.9 % Normal 1.7-12.0 [facility] Comment on above: Performed By: #### C BC #### [facility] [address] [place] [address] Dr. Chapo Brewer NEUT # 3.8 103/ul Normal 1.4-6.5 [facility] Comment on above: Performed By: #### C BC #### [facility] [address] [place] [address] Dr. Chapo Brewer Neutrophils/100 WBC (Bld) 66.6 % Normal 43.0-75.0 [facility] Comment on above: Performed By: #### C BC #### [facility] [address] [place] [address] Dr. Chapo Brewer Platelet mean volume (Bld) [Entitic vol] 9.2 fL Critically low 9.5-13.5 [facility] Comment on above: Performed By: #### C BC #### [facility] [address] [place] [address] Dr. Chapo Brewer PLT 227 103/ul Normal 150-450 [facility] Comment on above: Performed By: #### C BC #### [facility] [address] [place] [address] Dr. Chapo Brewer RBC 4.67 106/ul Critically low 4.70-6.10 [facility] Comment on above: Performed By: #### C BC #### [facility] [address] [place] [address] Dr. Chapo Brewer WBC 5.8 103/ul Normal 4.0-11.0 [facility] Comment on above: Performed By: #### C BC #### [facility] [address] [place] [address] Dr. Chapo Brewer PROTIMEon 08-17-2021 INR Coag (PPP) [Relative time] 0.97 {INR} Normal [facility] Comment on above: Performed By: #### P TT, PT #### [facility] [address] [place] [address] Dr. Chapo Brewer INR GUIDELINES SEE BELOW Normal [facility] Comment on above: Result Comment: RIRI RED INR: 2.0 - 3.0 CONDITIONS NOT LISTED BELOW 2.5 - 3.5 FOR PROSTHETIC HEART VALVE REPLACEMENT 2.5 - 3.5 RECURRENT THROMBOSIS Performed By: #### P TT, PT #### [facility] [address] [place] [address] Dr. Chapo Brewer PT Coag (PPP) [Time] 10.5 s Normal 9.0-11.6 [facility] Comment on above: Performed By: #### P TT, PT #### [facility] [address] [place] [address] Dr. Chapo Brewer PTTon 08-17-2021 aPTT Coag (Bld) [Time] 27.6 s Normal 22.3-36.2 [facility] Comment on above: Performed By: #### P TT, PT #### [facility] [address] [place] [address] Dr. Chapo Brewer CBC AUTO DIFFon 05-18-2021 BASO # 0.0 103/ul Normal 0.0-0.1 [facility] Comment on above: Performed By: #### C BC #### [facility] [address] [place] [address] Dr. Chapo Brewer Basophils/100 WBC (Bld) 0.6 % Normal 0.2-2.0 [facility] Comment on above: Performed By: #### C BC #### [facility] [address] [place] [address] Dr. Chapo Brewer EO # 0.4 103/ul Normal 0.0-0.7 [facility] Comment on above: Performed By: #### C BC #### [facility] [address] [place] [address] Dr. Chapo Brewer Eosinophils/100 WBC (Bld) 7.0 % Normal 0.9-7.0 [facility] Comment on above: Performed By: #### C BC #### [facility] [address] [place] [address] Dr. Chapo Brewer Erythrocyte distribution width (RBC) [Ratio] 12.4 % Normal 11.0-15.0 [facility] Comment on above: Performed By: #### C BC #### [facility] [address] [address] [address] Chapo Brewer Hematocrit (Bld) [Volume fraction] 47.4 % Normal 42.0-54.0 [facility] Comment on above: Performed By: #### C BC #### [facility] [address] [place] [address] Dr. Chapo Brewer Hemoglobin (Bld) [Mass/Vol] 15.4 g/dL Normal 14.0-18.0 [facility] Comment on above: Performed By: #### C BC #### [facility] [address] [place] [address] Dr. Chapo Brewer IG # 0.02 10e3/ul Normal 0.00-0.03 [facility] Comment on above: Performed By: #### C BC #### [facility] [address] [place] [address] Dr. Chapo Brewer IG % 0.4 % Normal 0.0-0.5 [facility] Comment on above: Performed By: #### C BC #### [facility] [address] [place] [address] Dr. Chapo Brewer LYMPH # 1.1 103/ul Critically low 1.2-3.8 [facility] Comment on above: Performed By: #### C BC #### [facility] [address] [place] [address] Dr. Chapo Brewer Lymphocytes/100 WBC (Bld) 21.5 % Normal 20.5-60.0 [facility] Comment on above: Performed By: #### C BC #### [facility] [address] [place] [address] Dr. Chapo Brewer MANUAL DIFF REQ NO Normal [facility] Comment on above: Performed By: #### C BC #### [facility] [address] [place] [address] Dr. Chapo Brewer MCH (RBC) [Entitic mass] 30.9 pg Normal 25.9-34.0 [facility] Comment on above: Performed By: #### C BC #### [facility] [address] [address] [address] Chapo Brewer MCHC (RBC) [Mass/Vol] 32.5 g/dL Normal 29.9-35.2 [facility] Comment on above: Performed By: #### C BC #### [facility] [address] [address] [address] Chapo Brewer MCV (RBC) [Entitic vol] 95.2 fL Critically high 80.0-94.0 [facility] Comment on above: Performed By: #### C BC #### [facility] [address] [address] [address] Chapo Brewer MONO # 0.7 103/ul Normal 0.3-0.8 [facility] Comment on above: Performed By: #### C BC #### [facility] [address] [place] [address] Dr. Chapo Brewer Monocytes/100 WBC (Bld) 13.7 % Critically high 1.7-12.0 [facility] Comment on above: Performed By: #### C BC #### [facility] [address] [place] [address] Dr. Chapo Brewer NEUT # 2.9 103/ul Normal 1.4-6.5 [facility] Comment on above: Performed By: #### C BC #### [facility] [address] [place] [address] Dr. Chapo Brewer Neutrophils/100 WBC (Bld) 56.8 % Normal 43.0-75.0 [facility] Comment on above: Performed By: #### C BC #### [facility] [address] [address] [address] Chapo Brewer Platelet mean volume (Bld) [Entitic vol] 9.8 fL Normal 9.5-13.5 [facility] Comment on above: Performed By: #### C BC #### [facility] [address] [address] [address] Chapo Brewer PLT 210 103/ul Normal 150-450 [facility] Comment on above: Performed By: #### C BC #### [facility] [address] [place], [place] [address] Dr. Chapo Brewer RBC 4.98 106/ul Normal 4.70-6.10 [facility] Comment on above: Performed By: #### C BC #### [facility] [address] [place], [place] [address] Dr. Chapo Brewer WBC 5.1 103/ul Normal 4.0-11.0 [facility] Comment on above: Performed By: #### C BC #### [facility] [address] [place], [place] [address] Dr. Chapo Brewer Vital Signs Date Time Vital Sign Value Performing Clinician Facility 10-21-2024 15:29-0400 Diastolic blood pressure 86 mm[Hg] Mariaelena Bailey SENIOR SPEECH PATHOLOGIST Work Phone: [facility] 10-21-2024 15:29-0400 Systolic blood pressure 124 mm[Hg] Mariaelena Bailey SENIOR SPEECH PATHOLOGIST Work Phone: [facility] 10-21-2024 15:14-0400 Body mass index (BMI) [Ratio] 26.47 kg/m2 Mariaelenazafar Bailey SENIOR SPEECH PATHOLOGIST Work Phone: [facility] 10-21-2024 15:14-0400 Body temperature 98.49 [degF] Mariaelena Leo SENIOR SPEECH PATHOLOGIST Work Phone: [facility] 10-21-2024 15:14-0400 Body weight 93.53 kg Mariaelena Leo SENIOR SPEECH PATHOLOGIST Work Phone: [facility] 10-21-2024 15:14-0400 Heart rate 67 /min Mariaelena Leo SENIOR SPEECH PATHOLOGIST Work Phone: [facility] 10-21-2024 15:14-0400 Respiratory rate 18 /min Mariaelena Leo SENIOR SPEECH PATHOLOGIST Work Phone: [facility] 10-21-2024 15:14-0400 SaO2% (BldA) [Mass fraction] 98 % Mariaelena Bailey SENIOR SPEECH PATHOLOGIST Work Phone: [facility] 04-22-2024 15:36-0500 Diastolic blood pressure 92 mm[Hg] Mariaelena Coombsz SENIOR SPEECH PATHOLOGIST Work Phone: [facility] 04-22-2024 15:36-0500 Systolic blood pressure 122 mm[Hg] Mariaelenazafar Jimenezholz SENIOR SPEECH PATHOLOGIST Work Phone: [facility] 04-22-2024 15:14-0500 Body height 188 cm Mariaelenazafar Jimenezholz SENIOR SPEECH PATHOLOGIST Work Phone: [facility] 04-22-2024 15:14-0500 Body mass index (BMI) [Ratio] 27.19 kg/m2 Mariaelenazafar Jimenezholz SENIOR SPEECH PATHOLOGIST Work Phone: [facility] 04-22-2024 15:14-0500 Body temperature 98.1 [degF] Mariaelena Coombsz SENIOR SPEECH PATHOLOGIST Work Phone: [facility] 04-22-2024 15:14-0500 Body weight 96.07 kg Mariaelenazafar Jimenezholz SENIOR SPEECH PATHOLOGIST Work Phone: [facility] 04-22-2024 15:14-0500 Heart rate 66 /min Mariaelena Barbaraholz SENIOR SPEECH PATHOLOGIST Work Phone: [facility] 04-22-2024 15:14-0500 Respiratory rate 19 /min Mariaelena Barbaraholz SENIOR SPEECH PATHOLOGIST Work Phone: [facility] 04-22-2024 15:14-0500 SaO2% (BldA) [Mass fraction] 99 % Mariaelena Jimenezholz SENIOR SPEECH PATHOLOGIST Work Phone: [facility] 12-06-2023 08:14-0400 Blood Pressure Location [facility] 12-06-2023 08:14-0400 Body temperature 98.6 [degF] David [facility] 12-06-2023 08:14-0400 Diastolic blood pressure 88 mm[Hg] David [facility] 12-06-2023 08:14-0400 Heart rate 79 /min David [facility] 12-06-2023 08:14-0400 Respiratory rate 16 /min David [facility] 12-06-2023 08:14-0400 Systolic blood pressure 134 mm[Hg] David [facility] 04-22-2023 09:00-0500 Body height 187.96 cm Meg Reynolds Other [employer] Other 04-22-2023 09:00-0500 Body mass index (BMI) [Ratio] 26.96 kg/m2 Meg Reynolds Other [employer] Other 04-22-2023 09:00-0500 Body temperature 98.5 [degF] Meg Reynolds Other [employer] Other 04-22-2023 09:00-0500 Body weight 95.26 kg Meg Reynolds Other [employer] Other 04-22-2023 09:00-0500 Diastolic blood pressure 92 mm[Hg] Meg Reynolds Other [employer] Other 04-22-2023 09:00-0500 Respiratory rate 18 /min Emg Reynolds Other [employer] Other 04-22-2023 09:00-0500 SaO2% (BldA) [Mass fraction] 98 % Meg Reynolds Other [employer] Other 04-22-2023 09:00-0500 Systolic blood pressure 143 mm[Hg] Meg Reynolds Other [employer] Other 12-03-2022 11:33-0400 Blood Pressure Location Davidrosio CARNEY [facility] 12-03-2022 11:33-0400 Diastolic blood pressure 80 mm[Hg] Davidrosio CARNEY [facility] 12-03-2022 11:33-0400 Heart rate 68 /min David CARNEY [facility] 12-03-2022 11:33-0400 Respiratory rate 16 /min Davidrosio CARNEY [facility] 12-03-2022 11:33-0400 Systolic blood pressure 120 mm[Hg] Davidrosio CARNEY [facility] 07-17-2022 14:48-0400 Body temperature 97.59 [degF] JOSELYN Reyes MD Work Phone: [facility] 07-17-2022 14:48-0400 Body weight 96.16 kg JOSELYN Reyes MD Work Phone: [facility] 07-17-2022 14:48-0400 Diastolic blood pressure 90 mm[Hg] JOSELYN Reyes MD Work Phone: [facility] 07-17-2022 14:48-0400 Heart rate 64 /min JOSELYN Reyes MD Work Phone: [facility] 07-17-2022 14:48-0400 Respiratory rate 16 /min JOSELYN Reyes MD Work Phone: [facility] 07-17-2022 14:48-0400 SaO2% (BldA) [Mass fraction] 97 % JOSELYN Reyes MD Work Phone: [facility] 07-17-2022 14:48-0400 Systolic blood pressure 135 mm[Hg] JOSELYN Reyes MD Work Phone: [facility] 11-21-2021 08:41-0400 Blood Pressure Location Derek Soto Jr. [facility] 11-21-2021 08:41-0400 Diastolic blood pressure 78 mm[Hg] Derek Soto Jr. [facility] 11-21-2021 08:41-0400 Heart rate 64 /min Derek Soto Jr. [facility] 11-21-2021 08:41-0400 Respiratory rate 16 /min Derek Soto Jr. [facility] 11-21-2021 08:41-0400 Systolic blood pressure 118 mm[Hg] Derek Soto Jr. [facility] Encounters Encounter Date Encounter Type Care Provider Facility Start: 02-01-2025 ambulatory David Douglass ty:[facility] [place] Start: 10-21-2024 End: 10-21-2024 Office outpatient visit 15 minutes Mariaelena Bailey NP Work Phone: [facility] Comment on above: Primary hypertension (Primary Dx); Asymptomatic microscopic hematuria; Malignant neoplasm of prostate (HCC) Start: 10-21-2024 End: 10-21-2024 ambulatory MARIAELENA BAILEY Not Available Start: 10-21-2024 End: 10-21-2024 Bamboo flowsheet Mariaelena Bailey NP Work Phone: [facility] Start: 10-21-2024 End: 10-21-2024 Bamboo flowsheet Mariaelena Bailey SENIOR SPEECH PATHOLOGIST Work Phone: [facility] Start: 06-24-2024 End: 06-24-2024 Clinisync Result Encounter Mariaelena Bailey SENIOR SPEECH PATHOLOGIST Work Phone: [facility] Unsolicited Start: 06-24-2024 End: 06-24-2024 Clinisync Result Encounter Mariaelena Bailey SENIOR SPEECH PATHOLOGIST Work Phone: [facility] Unsolicited Start: 06-15-2024 End: 06-15-2024 Refill Mariaelena Bailey SENIOR SPEECH PATHOLOGIST Work Phone: [facility] Comment on above: Primary hypertension (CMS/HCC) Start: 04-22-2024 End: 04-22-2024 Periodic preventive med est patient 40-64yrs Mariaelena Leo SENIOR SPEECH PATHOLOGIST Work Phone: [facility] Comment on above: Encounter for [facility] examination (Primary Dx); Primary hypertension (CMS/HCC); Benign prostatic hyperplasia without urinary obstruction; 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; Malignant neoplasm of prostate (CMS/HCC); Overweight (BMI 25.0-29.9) Start: 04-22-2024 End: 04-22-2024 ambulatory MARIAELENA JIMENEZHOME Not Available Start: 04-22-2024 End: 04-22-2024 Bamboo flowsheet Mariaelena Jimenezhome SENIOR SPEECH PATHOLOGIST Work Phone: [facility] Start: 04-22-2024 End: 04-22-2024 Bamboo flowsheet Mariaelena Jimenezhome SENIOR SPEECH PATHOLOGIST Work Phone: [facility] Start: 04-22-2024 End: 04-22-2024 Patient encounter status Mariaelena Jimenezhome SENIOR SPEECH PATHOLOGIST Work Phone: [facility] Start: 12-06-2023 End: 12-06-2023 ambulatory David CARNEY Facility:[facility] Start: 12-06-2023 End: 12-06-2023 Patient encounter procedure David CARNEY [facility] Start: 04-22-2023 Office outpatient ne w 20 minutes Meg Reynolds [facility] Start: 04-22-2023 End: 04-22-2023 ambulatory Meg Reynolds [facility] [employer] Other Start: 12-03-2022 End: 12-03-2022 Patient encounter procedure David CARNEY [facility] Start: 07-17-2022 End: 07-17-2022 ambulatory Willy REYES Facility:[facility] Start: 07-17-2022 End: 07-17-2022 Patient encounter procedure Willy Reyes MD Work Phone: [facility] Comment on above: Malignant neoplasm o f prostate (HCC) (Primary Dx) Start: 07-12-2022 End: 07-12-2022 ambulatory MARIAELENA RENEA BAILEY Facility:[facility] Start: 03-04-2022 Encounter for genera l adult medical examination without abnormal findings DAVID BAILEY [facility] Start: 02-27-2022 End: 02-28-2022 ambulatory DAVID BAILEY Facility:[facility] Start: 02-27-2022 End: 02-28-2022 Encounter for general adult medical examination without abnormal findings DAVID BAILEY Facility:[facility] Start: 01-16-2022 End: 01-16-2022 ambulatory Willy REYES Facility:[facility] Start: 01-12-2022 End: 01-12-2022 ambulatory MARIAELENA RENEA BAILEY Facility:[facility] Start: 11-21-2021 End: 11-21-2021 Patient encounter procedure Derek Soto Jr. [facility] Start: 08-17-2021 End: 08-18-2021 ambulatory DAVID BAILEY Facility:[facility] Start: 07-17-2021 End: 07-18-2021 ambulatory FEATHER MAKER MARIAELENA IDAJeffreyHOME Facility:[facility] Start: 05-18-2021 End: 05-19-2021 ambulatory FEATHER MAKER MARIAELENA LEO Facility:[facility] Start: 06-16-2020 End: 06-16-2020 Patient encounter procedure External Provider [facility] Start: 06-16-2020 Results Only External Provider Exter nal-NonCCF Procedures Date Procedure Procedure Detail Performing Clinician Start: 06-24-2024 ALL CBC WITH AUTO DIFF Mariaelena Bailey SENIOR SPEECH PATHOLOGIST Work Phone: Start: 06-24-2024 [facility] URINALYSIS, WIT H MICROSCOPIC Mariaelena Bailey SENIOR SPEECH PATHOLOGIST Work Phone: Start: 07-17-2021 PSA screening DAVID BAILEY Comment on above: Performed By: #### P SAD #### [facility] [address] [place] [address] Dr. Chapo Brewer Start: 08-31-2020 Brachytherapy implan t (physical object) Derek Soto Jr. Start: 06-16-2020 EXTERNAL LAB External P rovider Start: 05-19-2020 Transrectal biopsy o f prostate using ultrasound guidance Derek Soto Jr. Start: 06-20-2018 Colonoscopy Mariaelena zarate NP Work Phone: Basal cell carcinoma of neck (disorder) David CARNEY Colonoscopy Derek Forrester Plan of Treatment Date Care Activity Detail Author Start: 06-20-2028 Screening for malign ant neoplasm of colon [facility] Start: 07-13-2027 PROSTATE CANCER SCREENING DISCUSSION PROSTATE CANCER SCREENING DISCUSSION [facility] Start: 04-22-2025 End: 04-22-2025 Patient encounter procedure 04/22/2025 3:40 PM EST Office Visit [facility] [address] [place] [address] Mariaelena Bailey NP [address] [place] [address] [facility] Start: 10-21-2024 End: 10-21-[address] [facility] Comment on above: Primary hypertension (Primary Dx); Asymptomatic microscopic hematuria; Malignant neoplasm of prostate (HCC) Start: 04-22-2024 End: 04-22-2024 Patient encounter procedure 04/22/2024 3:00 PM EST Office [address] [facility] [address] [place] [address] Mariaelena Bailey NP [address] [place] [id number] Encounter for wellness examination (Primary Dx); Primary hypertension (CMS/HCC); Benign prostatic hyperplasia without urinary obstruction; 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; Malignant neoplasm of prostate (CMS/HCC) [facility] Comment on above: Encounter for wellne ss examination (Primary Dx); Primary hypertension (CMS/HCC); Benign prostatic hyperplasia without urinary obstruction; 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; Malignant neoplasm of prostate (CMS/HCC) Start: 04-22-2024 End: 04-22-2025 CBC W Auto Differential panel - Blood CBC and differential Lab Routine Encounter for wellness examination Expected: 04/22/2024 (Approximate), Expires: 04/22/2025 [facility] Work Phone: Comment on above: Expected: 04/22/2024 (Approximate), Expires: 04/22/2025 Start: 04-22-2024 End: 04-22-2025 Comprehensive metabolic 2000 panel - Serum or Plasma Comprehensive metabolic panel Lab Routine Encounter for wellness examination Expected: 04/22/2024 (Approximate), Expires: 04/22/2025 [facility] Comment on above: Expected: 04/22/2024 (Approximate), Expires: 04/22/2025 Start: 04-22-2024 End: 04-22-2025 Lipid 1996 panel - Serum or Plasma Lipid panel Lab Routine Encounter for wellness examination Expected: 04/22/2024 (Approximate), Expires: 04/22/2025 [facility] Comment on above: Expected: 04/22/2024 (Approximate), Expires: 04/22/2025 Start: 04-22-2024 End: 04-22-2025 Microalbumin/Creatinine panel in random Urine Microalbumin / creatinine, urine ratio Lab Routine Encounter for wellness examination Expected: 04/22/2024 (Approximate), Expires: 04/22/2025 [facility] Comment on above: Expected: 04/22/2024 (Approximate), Expires: 04/22/2025 Start: 04-22-2024 End: 04-22-2025 Urinalysis complete panel - Urine Urinalysis with reflex microscopic (clean catch) Lab Routine Encounter for wellness examination Expected: 04/22/2024 (Approximate), Expires: 04/22/2025 [facility] Comment on above: Expected: 04/22/2024 (Approximate), Expires: 04/22/2025 Start: 01-17-2023 End: 03-19-2023 Prostate specific Ag [Mass/volume] in Serum or Plasma PSA/PROSTSPECAG DIAG Lab Routine Malignant neoplasm of prostate (HCC) Expected: 01/17/2023, Expires: 03/19/2023 [facility] Work Phone: Comment on above: Expected: 01/17/2023 , Expires: 03/19/2023 Start: 05-06-2022 DEPRESSION ASSESSMENT DEPRESSION ASS ESSMENT [facility] Start: 01-04-2022 Influenza vaccination INFLUENZA (#1) [facility] Start: 05-11-2021 COVID-19 VACCINE (4 - Booster for Pfizer series) COVID-19 VACCINE (4 - Booster for Pfizer series) [facility] Start: 01-05-2020 Influenza vaccination INFLUENZA (#1) [facility] Start: 2015 PROSTATE CANCER SCREENING DISCUSSION PROSTATE CANCER SCREENING DISCUSSION [facility] Start: 2010 Screening for malign ant neoplasm of colon [facility] Start: 2010 SHINGRIX VACCINE (1 of 2) SHINGRIX VACCINE (1 of 2) [facility] Start: 2005 COLOGUARD (FIT-DNA) COLOGUARD (FIT-D NA) [facility] Start: 2005 Colonoscopy COLONOSCOPY [facility] Start: 2005 COLORECTAL CANCER SCREENING COLORECTAL CANCER SCREENING [facility] Start: [address] COLONOGRAPHY [facility] Start: 2005 DIABETES SCREEN DIABETES SCREEN [facility] Start: 2005 FECAL OCCULT BLOOD FECAL OCCULT BLOO D [facility] Start: 2005 SIGMOIDOSCOPY SIGMOIDOSCOPY [facility] Start: 1995 LIPID SCREEN LIPID SCREEN [facility] Start: 1979 Urine microalbumin profile DTAP,TDAP,TD (1 - Tdap) [facility] Start: 1978 HEPATITIS C SCREENING HEPATITIS C SC REENING [facility] Start: 1978 HIV SCREENING HIV SCREENING [facility] Start: 1972 Adult depression screening assessment DEPRESSION SCREENING [facility] Start: 1960 Screening for malign ant neoplasm of colon [facility] Immunizations Immunization Date Immunization Notes Care Provider [facility] 05-15-2021 influenza virus vaccine, unspecified formulation David CARNEY [facility] 05-15-2021 influenza, injectable, quadrivalent, preservative free Mariaelena Bailey NP Work Phone: [facility] 05-15-2021 zoster vaccine recombinant David CARNEY [facility] 03-16-2021 SARS-CoV-2 (COVID-19 ) mRNA BNT-162b2 vax David CARNEY [facility] 08-13-2020 COVID-19 original vaccine, age 12+ yr, monovalent (PFIZER-BIONTECH - PURPLE TOP) JOSELYN Reyes MD Work Phone: [facility] 07-22-2020 COVID-19 original vaccine, age 12+ yr, monovalent (PFIZER-BIONTECH - PURPLE TOP) JOSELYN Reyes MD Work Phone: [facility] 02-28-2018 influenza virus vaccine, unspecified formulation David CARNEY [facility] 02-28-2018 influenza, injectable, quadrivalent, contains preservative Mariaelena Leo SENIOR SPEECH PATHOLOGIST Work Phone: [facility] 07-25-2015 influenza virus vaccine, unspecified formulation David CARNEY [facility] 07-25-2015 influenza, seasonal, injectable, preservative free Mariaelena Leo SENIOR SPEECH PATHOLOGIST Work Phone: [facility] 07-25-2015 tetanus toxoid, reduced diphtheria toxoid, and acellular pertussis vaccine, adsorbed David CARNEY [facility] NEGATED: Highlighted row has not occurred!06-14-2020 influenza virus vaccine, unspecified formulation Derek Soto Jr. [facility] Payers Date Payer Category [facility] [id number] 2024 Unknown [id number] 2023 Private Health Insurance [employer] [id number] 2023 Unknown [id number] 2023 Self-pay 2018 Unknown [employer] PPO [id number] 2018-Present PPO [id number] 2018 Unknown [employer] BLUE ACCE SS PPO [id number] 2018-Present [phone] [address] [place] [address] PPO [id number] 1960 Unknown [id number] 1960 Unknown [id number] 1960 Unknown [id number] 1960 Unknown [id number] 1960 Unknown [id number] 1960 Unknown [id number] 1259 1960 Unknown [id number] 1960 Unknown [id number] 1959 Unknown [id number] Unknown [id number] Social History Date Type Detail [facility] Start: 1960 Sex Assigned At Not on file [facility] Start: 11-21-2021 End: 11-30-2022 Tobacco smoking status Never smoked tobacco (finding) [facility] Start: 04-21-2024 End: 10-21-2024 Sex Assigned At Male [facility] Start: 01-16-2022 End: 11-30-2022 Tobacco use and exposure Smokeless tobacco non-user [facility] Start: 07-17-2022 End: 10-21-2024 Alcohol intake Current drinker of alcohol (finding) [facility] Start: 06-17-2020 Alcohol Comment couple times a week [facility] Tobacco smoking status Never [facility] Start: 10-24-2023 End: 04-21-2024 Alcoholic beverage intake [facility] Do you belong to any clubs or organizations such as hoahaoism groups, unions, fraternal or athletic groups, or [...] 10-19-2022 Sexual orientation Heterosexual (finding) [facility] How often do you nee d to have someone help you when you read instructions, pamphlets, or other written material from your doctor or pharmacy [SILS] Never [facility] Functional Status Date Assessment Result Facility 12-06-2023 Functional Status N/A [facility] 12-03-2022 Functional Status N/A [facility] 11-21-2021 Functional Status N/A [facility] Clinical Notes 11-21-2021 to 10-21-2024 Mariaelena Bailey NP - 10/21/2024 3:35 PM Rey Bailey NP - 10/21/2024 3:00 PM Rey Bailey NP - 10/21/2024 7:45 AM EDShaheen Bailey NP - 10/21/2024 7:45 AM EDTPatient Instructions Note Date & Type Note Facility 10-21-2024 History of Present illness Narrative Associated Problem(s): Asymptomatic microscopic hematuria Follows with urology Images from the original note were not included. Loyd Alford is a 64 y.o. male presents with chief complaint of Hypertension HPI: Hypertension This is a chronic problem. The current episode started more than 1 year ago. The problem is unchanged. The problem is controlled. Pertinent negatives include no anxiety, chest pain, headaches, malaise/fatigue, orthopnea, peripheral edema, PND or shortness of breath. There are no [...] Systems Constitutional: Negative for activity change, appetite change, malaise/fatigue and unexpected weight change. HENT: Negative for ear pain, nosebleeds, sneezing, trouble swallowing and voice change. Eyes: Negative for pain, discharge and visual disturbance. Respiratory: Negative for apnea, chest tightness, shortness of breath and wheezing. Cardiovascular: Negative for chest pain, orthopnea, leg swelling and PND. Gastrointestinal: Negative for abdominal distention, blood in stool, constipation and diarrhea. Genitourinary: Negative for decreased urine volume, difficulty urinating, dysuria and hematuria. Skin: Negative for color change. Neurological: Negative for dizziness, tremors, seizures and headaches. Psychiatric/Behavioral: Negative for agitation, decreased concentration, hallucinations, self-injury and suicidal ideas. The patient is not nervous/anxious. Hematological: Negative for adenopathy. Does not bruise/bleed easily. Endocrine: Negative for cold intolerance, heat intolerance, polydipsia and polyuria. Allergic/Immunologic: Negative for environmental allergies and food allergies. PAST MEDICAL HISTORY Past Medical History: Diagnosis Date Abnormal CBC Abnormal EKG Adenocarcinoma of prostate (HCC) 06/2018 Basal cell carcinoma Easy bruising Elevated PSA Folliculitis Hematuria, gross Hypertension Neoplasm of uncertain behavior Overweight (BMI 25.0-29.9) [...] his mother. OBJECTIVE: Visit Vitals BP (!) 140/100 (BP Location: Left arm, Patient Position: Sitting, BP Cuff Size: Adult long) Pulse 67 Temp 98.5 F (Temporal) Resp 18 Wt 206 lb 3.2 oz SpO2 98% BMI 26.47 kg/m Smoking Status Never BSA 2.21 m Physical Exam Vitals and nursing note reviewed. Constitutional: Appearance: Normal appearance. HENT: Head: Normocephalic. Right Ear: External ear normal. Left Ear: External ear normal. Nose: Nose normal. Mouth/Throat: Mouth: Mucous membranes are moist. Pharynx: Oropharynx is clear. Eyes: Extraocular Movements: Extraocular movements intact. Conjunctiva/sclera: Conjunctivae normal. Neck: Vascular: No carotid bruit. Cardiovascular: Rate and Rhythm: Normal rate and regular rhythm. Pulses: Normal pulses. Heart sounds: Normal heart sounds. Pulmonary: Effort: Pulmonary effort is normal. Breath sounds: Normal breath sounds. No wheezing or rhonchi. Abdominal: General: Bowel sounds are normal. Palpations: Abdomen is soft. Musculoskeletal: Cervical back: Neck supple. Right lower leg: No edema. Left lower leg: No edema. Skin: General: Skin is warm and dry. Capillary Refill: Capillary refill takes 2 to 3 seconds. Neurological: General: No focal deficit present. Mental Status: He is alert. Psychiatric: Mood and Affect: Mood normal. Behavior: Behavior normal. Thought Content: Thought content normal. Judgment: Judgment normal. ASSESSMENT AND PLAN: No follow-ups on file. Problem List Items Addressed This Visit Malignant neoplasm of prostate (HCC) Continues with fu with Urology for this condition Hypertension - Primary Please check blood pressure daily and record DASH diet Limit caffeine Take medication as directed Contact office if chest pain, pressure, dizziness, shortness of breath, swelling legs Recommend slow position changes Current meds: lisinopril Relevant Medications lisinopril 20 MG tablet Asymptomatic microscopic hematuria Associated Problem(s): Malignant neoplasm of prostate (HCC) Continues with fu with Urology for this condition Associated Problem(s): Hypertension Please check blood pressure daily and record DASH diet Limit caffeine Take medication as directed Contact office if chest pain, pressure, dizziness, shortness of breath, swelling legs Recommend slow position changes Current meds: lisinopril documented in this encounter [facility] 04-22-2024 History of Present illness Narrative Images [...] Current meds: lisinopril documented in this encounter [facility] 04-22-2024 Instructions Mariaelena Bailey NP - 04/22/2024 3:00 PM EST Get labs done, fasting 8 hours Aerobic activity, 3-4 times week for 30 minutes documented in this encounter [facility] 12-06-2023 Hospital Discharge instructions Patient Education 12/06/2023 [...] urethra. Follow these instructions at home: Take isjm-dzt-vuhjkwd and prescription medicines only as told by [...] provider. Document Revised: 11/08/2021 Document Reviewed: 11/08/2021 [employer] Patient Education 2022 [employer] Follow Up Care 12/03/2022 12:33:18 With:NIRU AVINA, David Rangel, URL Address: [address] [place] [address] [place] [address]- When: Unknown [facility] 12-06-2023 Note Patient Education Urology Benign Prostatic [...] Follow these instructions at home: ? Take skiq-hhh-tmmxejw and prescription medicines only as told by [...] develop side effec (more content not included)... [facility] 04-22-2023 Evaluation note Encounter Date Diagnosis Assessment [...] follow up with PCP if new/worsening symptoms. [employer] Other 07-31-2023 Hospital Discharge instructions Patient Education [...] under a microscope. This is called the [place] score and the total score can range from 6 10, indicating how likely it is that the cancer will spread (metastasize) to other parts of the body. The higher the score, the greater thelikelihood that the cancer will spread. Pawel 6 or lower: This indicates that the cancer cells look similar to normal prostate cells (well differentiated). [place] 7: This indicates that the cancer cells [...] stress of having cancer. General instructions Take dkpp-fss-lmpbtri and prescription medicines only as told by your health care provider. If you have to go to the hospital, notify your cancer specialist (oncologist). Keep all follow-up visits. This is important. Where to find more information [employer] [employer]: www.cancer.org [place] [employer] Oncology: www.cancer.net National Cancer [place]: www.cancer.gov Contact a health care provider if: [...] provider. Document Revised: 07/19/2021 Document Reviewed: 07/19/2021 [employer] Patient Education 2022 [employer]. Follow Up Care 11/21/2021 08:58:33 With:NIRU AVINA, David Rangel, URL Address: [facility] [address] , [place] [address] [phone] When: Unknown Comments:1 yr w/ [facility] NoteHNO ID: [id number] Author: Willy Reyes MD Service: ? Author [...] by: Willy Reyes MD cc: Mariaelena Bailey, FEATHER MAKER (DrC) [address] [place] [address] Dr. Soto Portions of the above note extracted and edited from previous visit as well as active information included in the EMR.[facility] 07-17-2022 History of Present illness Narrative* Willy Reyes MD - 07/17/2022 2:55 PM EDT Radiation Oncology - Follow Up Note PATIENT NAME: Loyd Alford PATIENT DIAGNOSIS: Prostate adenocarcinoma, initial PSA 5.5, biopsy [place] score 3 + 3 = 6 (grade [...] by: Willy Reyes MD cc: Mariaelena Bailey, FEATHER MAKER (DrC) [address] [place] [address] Dr. Soto Portions of the above note extracted and edited from previous visit as well as active information included in the EMR. documented in this [facility]* Елена Reynolds LPN - 07/17/2022 2:49 PM EDT AUA= 12 documented in this [facility] NoteHNO ID: [id number] Author: Willy Reyes MD Service: ? Author Type: Physician Type: Progress Notes Filed: 01/16/2022 3:08 PM Note Text: Radiation Oncology - Follow Up Note PATIENT NAME: Loyd Alford PATIENT DIAGNOSIS: Prostate adenocarcinoma, initial PSA 5.5, biopsy [place] score 3 + 3 = 6 (grade [...] lesions. ASSESSMENT/PLAN:Prostate adenocarcinoma, initial PSA 5.5, biopsy [place] score 3 + 3 = 6 (grade group 1), clinical stage T1c, N0, M0, stage I [cT1a-c/T2a, N0, M0, PSA <10, GG 1] status post prostate brachytherapy Doing well with stable and decreasing PSA. No significant problems related to prior treatment. Recommend continued follow-up with PSA in 6 months. Signed by: Wlily Reyes MD cc: Mariaelena Bailey, FEATHER MAKER (C) [address] [place] [address] Dr. Soto Portions of the above note extracted and edited from previous visit as well as active information included in the EMR.[facility] 11-21-2021 Hospital Discharge instructions Patient Education [...] including vitamins, herbs, eye drops, creams, and [id number]-rnc-[id number] medicines. This also includes: ?Medicines to assist [...] 05/25/2005 Document Revised: 04/04/2018 Document Reviewed: 01/27/2018 [employer] Patient Education 2020 [employer]. Follow Up Care 02/21/2021 09:05:23 With:Derek Soto Jr., MD, URO Address: [facility] [address], [place] [address]- When:Within 1 Year(s) Comments:w/. pvr [facility] evaluation + Plan note Future Appointments Appointment Date:11/27/2022 08:00:00 AM Scheduled Provider:Derek Soto Jr., MD Location:[facility] Appointment Type:URO Office Visit [facility] evaluation + Plan note Future Appointments Appointment Date:12/06/2023 08:15:00 AM Scheduled Provider:[facility]O Office Visit Diagnostic Tests Pending * PSA Total 12/03/22 [facility] evaluation + Plan note Future Appointments Appointment Date:12/11/2024 08:00:00 AM Scheduled Provider:David CARNEY MD Location:[facility] Appointment Type:URO Office Visit Diagnostic Tests Pending * PSA Total 11/03/24 [facility] evaluation note* Diagnosis Malignant neoplasm of prostate (HCC)- Primary Malignant neoplasm of prostate [facility] Primary hypertension [...] (BMI 25.0-29.9) [facility] Diagnosis Primary hypertension (CMS/HCC)- Primary [...] Unspecified essential hypertension [facility] Diagnosis Primary hypertension- Primary Unspecified essential hypertension Malignant neoplasm of prostate (HCC) Malignant neoplasm of prostate Overweight (BMI 25.0-29.9) Overweight Primary hypertension- Primary Unspecified essential hypertension Malignant neoplasm of prostate (HCC) Malignant neoplasm of prostate Overweight (BMI 25.0-29.9) Overweight Encounter for wellness examination- Primary Primary hypertension Unspecified essential hypertension Benign prostatic hyperplasia without urinary obstruction 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 Malignant neoplasm of prostate (HCC) Malignant neoplasm of prostate Overweight (BMI 25.0-29.9) Overweight Primary hypertension- Primary Unspecified essential hypertension Asymptomatic microscopic hematuria Malignant neoplasm of prostate (HCC) Malignant neoplasm of prostate [facility] N[facility]ative - Reported* Type Description Date Medical History HTN (hypertension) Medical History BPH (benign prostatic hyperplasi a) Medical History Prostate cancer Surgical History radiatin see implant to prostat e [employer] Other Hospital course Narrative No data available for this section [facility] progress note No data available for this section [facility] Summary Purpose Family History No Family History [...] or prosecute any alcohol or drug abuse patient.[facility] Center[facility] the event this information is protected by the Federal Confidentiality of Alcohol and Drug Abuse Patient Records regulations: The Federal rules restrict any use of the information to criminally investigate or prosecute any alcohol or drug abuse patient.[facility] Care Team (unrecognized sect ion and content) Dump Grounds Checker Relationship Specialty Start Date End Date Mariaelena Bailey, FEATHER MAKER [address] [place] [address] PCP - General Family Medicine 06/15/20 Dump Grounds Checker Relationship Specialty Start Date End Date William Ruby MD [address] [place] [phone] PCP - General Family Medicine 10/24/23 Mariaelena Bailey NP [address] [place] [phone] Nurse Practitioner Family Medicine 02/03/23 Mariaelena Bailey NP [address] [place] [phone] Nurse Practitioner Family Medicine 10/24/23 Dump Grounds Checker Relationship Specialty Start Date End Date William Ruby MD [address] [place] [phone] PCP - General Family Medicine 10/24/23 Mariaelena Bailey NP [address] [place] [phone] Nurse Practitioner Family Medicine 02/03/23 Mariaelena Bailey NP [address] [place] [phone] Nurse Practitioner Family Medicine 10/24/23 Dump Grounds Checker Relationship Specialty Start Date End Date William Ruby MD [address] [place] [phone] PCP - General Family Medicine 10/24/23 Mariaelena Bailey NP [address] [place] [phone] Nurse Practitioner Family Medicine 02/03/23 Mariaelena Bailey NP [address] [place] [phone] Nurse Practitioner Family Medicine 10/24/23 Dump Grounds Checker Relationship Specialty Start Date End Date William Ruby MD [address] [place] [phone] PCP - General Family Medicine 10/24/23 Mariaelena Bailey NP [address] [place] [phone] Nurse Practitioner Family Medicine 02/03/23 Mariaelena Bailey NP [address] [place] [phone] Nurse Practitioner Family Medicine 10/24/23 Dump Grounds Checker Relationship Specialty Start Date End Date William Ruby MD [address] [place] [phone] PCP - General Family Medicine 10/24/23 Mariaelena Bailey NP [address] [place] [phone] PCP - [facility] 06/06/24 Mariaelena Bailey NP [address] [place] [phone] Nurse Practitioner Family Medicine 02/03/23 Mariaelena Bailey NP [address] [place] [phone] Nurse Practitioner Family Medicine 10/24/23 Dump Grounds Checker Relationship Specialty Start Date End Date William Ruby MD [address] [place] [phone] PCP - General Family Medicine 10/24/23 Mariaelena Bailey NP [address] [place] [phone] PCP - [facility] 06/06/24 Mariaelena Bailey NP [address] [place] [phone] Nurse Practitioner Family Medicine 02/03/23 Mariaelena Bailey NP [address] [place] [phone] Nurse Practitioner Family Medicine 10/24/23 (unrecognized sect ion and content) No Status Records FoundNo Status Records FoundNo Status Records FoundNo Status Records FoundNo Status Records Found INFORMATION SOURCE (unrecogn ized section and content) DATE CREATED AUTHOR 03/04/2022 [facility] DATE CREATED AUTHOR AUTHOR'S ORGANIZ ATION 01/11/2023 [facility] DATE CREATED AUTHOR AUTHOR'S ORGANIZ ATION 06/14/2023 [facility] DATE CREATED AUTHOR AUTHOR'S ORGANIZ ATION 10/24/2024 [facility] DATE CREATED AUTHOR AUTHOR'S ORGANIZ ATION 12/02/2024 [facility] Reason for Visit (unrecogniz ed section [...] BE BASED ON THE PRIMARY CLINICAL RECORDS. [facility] [employer] [facility]. provides no warranty or guarantee of the accuracy or completeness of information in this document.
[2025-01-20 09:07] LABS: Prostate Specific Antigen Dx 0.33 ng/mL (<=4.00)
== END 2025-01-20 07:34 | disposition home or self-care (01) ==
PROVIDERS: PCP Nurse Practitioner; Visit Provider Urology
DX: Z85.46 Personal history of malignant neoplasm of prostate (principal)
CPT/HCPCS: 36415; 84153